=== PATIENT | female | born 2000 | race Caucasian/White ===

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

== ENCOUNTER 2022-05-14 09:09 | Emergency (ER) | payer SELFPAY ==
--- OUTSIDE RECORDS SUMMARY | 2022-05-14 09:16 | XMS REPORT | Continuity of Care Document ---
:2000 Author Organization [facility] t Address [address] [place] [address] Care Team Providers Name Role Phone PCP, PATIENT DOES NOT HAVE A Primary Care Physician Unavaila Roya Bearden Attending Clinician Unavailable Roya Ramirez Attending Clinician Doctor Unassigned, [place] Attending Clinician Unavailable Pgy3 Attending Clinician Unavailable Marily Reynolds MD Attending Clinician Mannie Jesus DO Attending Clinician Shiraz Dubois APN Attending Clinician NEHA HANEY Attending Clinician Unavailable Payers Payer Name Policy Type Policy Number Effective Date Expiration Date [employer]jo [employer] [id number] 2021 HEALTHCARE 00:00:00 Problems Condition Condition Condition Status Onset Resolution Last Treating Co mments Source Name Details Category Date Date Treatment Clinician Date Vaginal Vaginal Disease Active 2020-10 Overview: Univ ers laceration laceration 10-27 Formattin ity of , initial , initial 00:00: [place] of [place] encounter 00 note Medi eladio might be Branch different from the original. Added automatic ally from request for surgery [id number] Morbid Morbid Disease Active 2020-10 Univers obesity obesity 10-27 [place]y of [place] mass index 00 [place] dical of of Branch 40.0-49.9 40.0-49.9 SEIZURE SEIZURE Diagnosis Active 2019-12-02 Memoria Active 10-21 10:28:00 l 10/21/2019 00:00: Claudio albright [address] History of Past Illness Condition Condition Condition Status Onset Resolution Last Treating Co mments Source Name Details Category Date Date Treatment Clinician Date Unspecifie Unspecifi Problem 2019-10-23 2019-10-23 Memoria d ed 10-21 23:30:17 23:30:17 l convulsion convulsion 18:00: He ann s s 00 10/21/2019 0 [facility] Allergies, Adverse Reactions, Alerts Allergy Allergy Status Severity Reaction(s) Onset Inactive Treating Comm ents Source Name Type Date Date Clinician Iodine Propensi Active Other - See sneezing U nivers ty to comments 07-04 ity of adverse 00:00: [place] reaction 00 Medical s Branch IODINE DRUG Active Low ITCHING Univers INGREDI 9- ity of 00:00: [place] 00 Medical Branch Social History Social Habit Start Date Stop Date Quantity Comments Source Exposure to Not sure [facility] SARS-CoV-2 (event) Medica l Branch Sex Assigned At [birth year] [facility] 00:00:00 00:00:00 Medical Branch Smoking Status Start Date Stop Date Source Unknown if ever smoked [facility] Medical [place] Social History [facility] Medications Ordered Filled Start Stop Current Ordering Indication Dosage Frequency Signature Comments Components Source Medication Medication Date Date Medication? Clinician (SIG) Name Name ofloxacin Yes [id number] 5[drp] Place 5 Univers 0.3 % otic 01-16 Drops in ity of drops 00:00: left ear 2 [place] 00 (two) Medical times Branch daily. ibuprofen 2020-10 Yes [id number] 600mg Take 1 Univers 600 mg 1-21 100 tablet by ity of tablet 00:00: mouth [place] 00 every 6 Medical (six) Branch hours. ibuprofen 2020-10 Yes [id number] 600mg Take 1 Univers 600 mg 1-21 100 tablet by ity of tablet 00:00: mouth [place] 00 every 6 Medical (six) Branch hours. ibuprofen 2020-10 Yes [id number] 600mg Take 1 Univers 600 mg 1-21 100 tablet by ity of tablet 00:00: mouth [place] 00 every 6 Medical (six) Branch hours. Saline 2020-0 No Notes: Memoria Flush 0.9% 1-15 (Same as: l 21:17: BD Serafin 00 Posiflush) Sodium 2020-0 No 1,000 mL, Memori a Chloride 1-15 1,000 l 0.9% 21:17: ml/hr, Serafin (Bolus) IV 00 Infuse Over: 1 hr, Route: IV, 1,000, Drug form: INJ, ONCE, Priority: STAT, Dosing Weight 90.909 kg, Start date: 10/21/19 15:17:00 C[employer]TING [employer], Stop date: 10/21/19 15:17:00 C[employer]TING [employer]ACH[employer], 0 Saline 2019-0 No Notes: Memoria Flush 0.9% 1-15 (Same as: l 21:17: BD [place] 00 Posiflush) Sodium 2020-0 No 1,000 mL, Memori a Chloride 1-15 1,000 l 0.9% 21:17: ml/hr, Serafin (Bolus) IV 00 Infuse Over: 1 hr, Route: IV, 1,000, Drug form: INJ, ONCE, Priority: STAT, Dosing Weight 90.909 kg, Start date: 10/21/19 15:17:00 C[employer]TING [employer], Stop date: 10/21/19 15:17:00 C[employer]TING MACH[employer], 0 Immunizations Ordered Filled Immunization Date Status Comments [facility] Immunization Name Name Td 2021-08-27 Completed University of 00:00:00 [facility] Td 2021-08-27 Completed University of 00:00:00 [facility] Td 2021-08-27 Completed University of 00:00:00 [facility] HEPATITIS A 2009-11-15 Completed University of 00:00:00 [facility] HEPATITIS A 2009-11-15 Completed University of 00:00:00 [facility] HEPATITIS A 2007-07-21 Completed University of 00:00:00 [facility] Varicella 2007-07-21 Completed University of (varivax)(chicken 00:00:00 [facility] edical pox) Branch HEPATITIS A 2007-07-21 Completed University of 00:00:00 [facility] Varicella 2007-07-21 Completed University of (varivax)(chicken 00:00:00 [place] M edical pox) Branch DTAP 2005-08-21 Completed University of 00:00:00 [facility] MMR 2005-08-21 Completed University of 00:00:00 [facility] Polio (IPV/OPV) 2005-08-21 Completed Universit y of 00:00:00 [facility] DTAP 2005-08-21 Completed University of 00:00:00 [facility] MMR 2005-08-21 Completed University of 00:00:00 [facility] Polio (IPV/OPV) 2005-08-21 Completed Universit y of 00:00:00 [facility] Vital Signs Vital Name Observation Time Observation Value Comments Source Systolic blood 2022-01-16 16:52:00 134 mm[Hg] Univer sity of pressure [facility] Diastolic blood 2022-01-16 16:52:00 85 mm[Hg] Unive rsity of pressure [facility] Heart rate 2022-01-16 16:52:00 87 /min [facility] Body temperature 2022-01-16 16:52:00 37.06 Juany [facility] Respiratory rate 2022-01-16 16:52:00 18 /min [facility] Body height 2022-01-16 16:52:00 165.1 cm [facility] Body weight 2022-01-16 16:52:00 108.863 kg [facility] BMI 2022-01-16 16:52:00 39.94 kg/m2 [facility] Oxygen saturation in 2022-01-16 16:52:00 97 /min [facility] Arterial blood by [facility] Pulse oximetry Branch Heart rate 2021-09-21 19:46:00 95 /min [facility] Body temperature 2021-09-21 19:46:00 37.11 Juany [facility] Respiratory rate 2021-09-21 19:46:00 21 /min [facility] Body height 2021-09-21 19:46:00 162.6 cm [facility] Body weight 2021-09-21 19:46:00 109.362 kg [facility] BMI 2021-09-21 19:46:00 41.38 kg/m2 [facility] Systolic blood 2021-09-21 19:46:00 132 mm[Hg] Univer sity [facility] Diastolic blood 2021-09-21 19:46:00 87 mm[Hg] [facility] Rate 2019-10-21 23:51:00 Memori al [place] Systolic (mm Hg) 2019-10-21 23:51:00 Dada rial Serafin Diastolic (mm Hg) 2019-10-21 23:51:00 Mem orial [place] Temperature Oral (F) 2019-10-21 23:51:00 98.2 F [facility] [place] Respitory Rate 2019-10-21 22:11:00 Memori al Serafin Systolic (mm Hg) 2019-10-21 22:11:00 Dada rial [place] Diastolic (mm Hg) 2019-10-21 22:11:00 Mem orial Serafin Respitory Rate 2019-10-21 22:09:00 Memori al Serafin Systolic (mm Hg) 2019-10-21 22:09:00 Dada rial Serafin Diastolic (mm Hg) 2019-10-21 22:09:00 Mem orial Serafin Heart Rate 2019-10-21 21:01:00 [facility] [place] Temperature Oral (F) 2019-10-21 21:01:00 98.7 F [facility] Serafin Height 2019-10-21 21:01:00 162.56 cm [facility] Serafin BMI Calculated 2019-10-21 21:01:00 Memori al [place] Weight 2019-10-21 21:01:00 [facility] Serafin Procedures Procedure Date / Time Performed Performing Clinician [facility] NOTICE OF PRIVACY 2022-01-16 16:36:22 Doctor Unassigned, No Univ [facility] Name [facility] Branch CONSENT/REFUSAL FOR 2022-01-16 16:36:08 [facility] Branch TREATMENT Encounters Start End Encounter Admission Attending Care Care Encounter Source Date/Time Date/Time Type Type Clinicians Facility Department ID 2022-01-16 2022-01-16 Emergency X Roya TODD [facility] ERT [id number] Univers 11:53:00 14:24:00 ity of [facility] 2022-01-16 2022-01-16 Emergency Roya Todd [facility] [id number] Univers 11:53:00 14:24:00 Kristel TINOCO [id number] i ty of [place] 4[place]2.[place].2.[place] [id number] [facility] 084 Branch 2022-01-16 2022-01-16 Orders Doctor LEANNA [id number] Univers 00:00:00 00:00:00 Only Unassigned, ALEX 350.1.13.10 ity of [place] [facility] 4.2.7.2.686 Afshin as [id number] [facility] 009 Branch 2021-09-21 2021-09-21 Office Pgy3 UNIVERSIT [id number] Univers 14:15:00 14:15:00 Visit ReynoldsMarily [facility] 350.1.13. 10 ity of [facility] 4.2.7.2.686 [place] [id number] [facility] 113 Branch 2020-07-31 2020-07-31 Emergency Singer [facility] [id number] 01:53:00 04:10:00 Mannie Tinoco [id number] [place] 4.2.7.2.686 [place] [id number] 2020-03-17 2020-03-17 Emergency [facility] [id number] 08:47:37 10:04:00 Alejandrina [id number] [place] 4.2.7.2.686 [place] [id number] 2019-11-29 2019-11-29 Emergency Sherly [facility] [id number] 12:21:58 14:07:00 Shiraz [place] [id number] [place] 4.2.7.2.686 [place] [id number] 2019-10-21 2019-10-21 Emergency nullFlavo [facility] [id number] Memoria 21:00:43 23:54:00 r Serafin 00 l [facility] 2019-10-21 2019-10-21 Emergency E MEDINA, MHCY MHCY 7500 MHCY 15:00:00 17:54:00 NEHA Results Test Description Test Time Test Comments Results Result Sourc e Comments MOLECULAR 2019-10-21 Urine [facility] DIAGNOSTIC 22:52:00 *NA*(10/21/19 Serafin 4:52 PM) MOLECULAR 2019-10-21 Negative [facility] DIAGNOSTIC 22:52:00 *NA*(10/21/19 Serafin 4:52 PM) MOLECULAR 2019-10-21 Negative [facility] DIAGNOSTIC 22:52:00 *NA*(10/21/19 Serafin 4:52 PM) MOLECULAR 2019-10-21 Urine [facility] DIAGNOSTIC 22:52:00 *NA*(10/21/19 Serafin 4:52 PM) MOLECULAR 2019-10-21 Negative [facility] DIAGNOSTIC 22:52:00 *NA*(10/21/19 Serafin 4:52 PM) MOLECULAR 2019-10-21 Negative [facility] DIAGNOSTIC 22:52:00 *NA*(10/21/19 [place] 4:52 PM) DRUG SCREEN 2019-10-21 Negative Memorial 22:04:00 *NA*(10/21/19 Serafin 4:04 PM) DRUG SCREEN 2019-10-21 Negative Memorial 22:04:00 *NA*(10/21/19 [place] 4:04 PM) DRUG SCREEN 2019-10-21 Negative Memorial 22:04:00 *NA*(10/21/19 Serafin 4:04 PM) DRUG SCREEN 2019-10-21 Negative Memorial 22:04:00 *NA*(10/21/19 [place] 4:04 PM) DRUG SCREEN 2019-10-21 See Note Memorial 22:04:00 (10/21/19 4:04 [place] PM) DRUG SCREEN 2019-10-21 Negative Memorial 22:04:00 *NA*(10/21/19 Serafin 4:04 PM) URINE AND STOOL 2019-10-21 Yellow [facility] 22:04:00 *NA*(10/21/19 Serafin 4:04 PM) DRUG SCREEN 2019-10-21 See Note Memorial 22:04:00 (10/21/19 4:04 Serafin PM) URINE AND STOOL 2019-10-21 Yellow [facility] 22:04:00 *NA*(10/21/19 [place] 4:04 PM) URINE AND STOOL 2019-10-21 Clear (10/21/19 Memor ial 22:04:00 4:04 PM) [place] URINE AND STOOL 2019-10-21 Clear (10/21/19 Memor ial 22:04:00 4:04 PM) Serafin URINE AND STOOL 2019-10-21 22:04:00 Test Item Value Reference Range Interpretation Comme nts UA Spec Grav (test code = UA Spec Grav) 1.020 1 [facility] [id number] 22:04:00 Test Item Value Reference Range Interpretation Comments UA pH (test code = UA pH) 5.5 1 5.0-8.0 [facility] [id number] 22:04:00Negative (10/21/19 4:04 PM) [facility] [id number] 22:04:00Negative (10/21/19 4:04 PM) [facility] [id number] 22:04:00Negative *NA*(10/21/19 4:04 PM) [facility] [id number] 22:04:00Negative *NA*(10/21/19 4:04 PM) [facility] [id number] 22:04:00Negative (10/21/19 4:04 PM) [facility] [id number] 22:04:000.2[facility] [id number] 22:04:00 Test Item Value Reference Range Interpretation Comments UA Spec Grav (test code = UA Spec 1.020 1 Grav) [facility] [id number] 22:04:00Negative (10/21/19 4:04 PM) [facility] [id number] 22:04:00Negative (10/21/19 4:04 PM) [facility] [id number] 22:04:00Negative *NA*(10/21/19 4:04 PM) [facility] [id number] 22:04:00 Test Item Value Reference Range Interpretation Comments UA pH (test code = UA pH) 5.5 1 5.0-8.0 [facility] [id number] 22:04:00Negative (10/21/19 4:04 PM) [facility] [id number] 22:04:00Negative *NA*(10/21/19 4:04 PM) [facility] [id number] 22:04:00Negative (10/21/19 4:04 PM) [facility] [id number] 22:04:00Negative *NA*(10/21/19 4:04 PM) [facility] [id number] 22:04:00Negative *NA*(10/21/19 4:04 PM) [facility] [id number] 22:04:00Negative (10/21/19 4:04 PM) [facility] [id number] 22:04:000.2[facility] [id number] 22:04:00Negative (10/21/19 4:04 PM)[facility] [id number] 22:04:00Negative (10/21/19 4:04 PM)[facility]annDRUG SCREEN 2019-10-21 22:04:00Positive *ABN*(10/21/19 4:04 PM)[facility] SCREEN 2019-10-21 22:04:00Negative *NA*(10/21/19 4:04 PM)[facility] SCREEN 2019-10-21 22:04:00Negative *NA*(10/21/19 4:04 PM)[facility] SCREEN 2019-10-21 22:04:00Negative *NA*(10/21/19 4:04 PM)[facility] SCREEN 2019-10-21 22:04:00Negative *NA*(10/21/19 4:04 PM)[facility]annDR[facility] SCREEN 2019-10-21 22:04:00Positive *ABN*(10/21/19 4:04 PM)[facility]annDR[facility] SCREEN 2019-10-21 22:04:00Negative *NA*(10/21/19 4:04 PM)[facility] HermannHEMATOLOGY 2019-10-21 21:29:0036.8[facility] BixvishHEDWMBONBR6512-06-13 21:29:0077.7[facility] ScqqddiIJZZVHREZN6268-55-71 21:29:00 Test Item Value Reference Range Interpretation Comments MCH (test code = MCH) 25.8 pg 27.0-31.0 Memorial ZjumfvtDZRVPDKQRR1262-22-66 21:29:0033.1[facility] HermannHEMATOLOGY 2019-10-21 21:29:0016.6[facility] PjmwrgkGGZESMMZLR5522-79-76 21:29:49995Jexondxd UusxplzZPZPXQJWPE4446-17-79 21:29:0010.8[facility]orial FbdsifrDJMWIBZSLY8641-27-34 21:29:0063.9[facility] DvabpiaOSAXWTVWGP6968-55-35 21:29:0023.2[facility] [place] HCNVBVDZST4214-88-74 21:29:008.0[facility] AziwqjaSDDDCEUWCX5440-13-21 21:29:004.5 Memorial KjrxdgoAJTCITPSPA6134-47-11 21:29:000.4[facility] HermannHEMATOLOGY 2019-10-21 21:29:004.3[facility] UcgaigfMMUHUHMOGA4278-90-25 21:29:001.6[facility] EvksslqPZZSUSZHLC1497-70-37 21:29:000.5[facility]orial QsalxakGQXEWSVVGR3561-86-39 21:29:000.3[facility] AnlkxzpYOPZSGIWWN6698-39-44 21:29:001+ *ABN*(10/21/19 3:29 PM)[facility] ExqkrtrJJMVSJFJCQ2165-80-96 21:29:00<3[facility] HermannTOXICOLOGY 2019-10-21 21:29:00<0.003[facility] HermannCARDIAC LUQQTIY8272-13-04 21:29:0072 [facility] HermannCARDIAC ZAPXVDC6564-99-64 21:29:00<0.02[facility] HermannCHEM MJGUO1817-53-15 21:29:0085Mem[facility] HermannCHEM WDBZA1980-66-28 21:29:0013 [facility] HermannCHEM CRGPH5720-48-29 21:29:000.80[facility] HermannCHEM PANEL 2019-10-21 21:29:28681Whcwwiuv HermannCHEM GBGAJ2287-03-93 21:29:003.8[facility] HermannCHEM YAIIG8980-11-96 21:29:29901Grnhqnsn HermannCHEM UOHBD4529-64-54 21:29:0027[facility] HermannCHEM SGKRW4581-60-18 21:29:008.5[facility] HermannCHEM RXUAA6084-94-51 21:29:006.6[facility] HermannCHEM DFIGW0782-06-48 21:29:003.5 [facility] HermannCHEM QUAGQ0522-72-08 21:29:0020[facility] HermannCHEM PANEL 2019-10-21 21:29:0017Mem[facility] HermannCHEM RTGFP4619-34-78 21:29:0073Mem[facility] HermannCHEM LUKTS3457-10-23 21:29:000.3[facility] HermannCHEM SZTMS7138-52-01 21:29:004.8[facility] HermannCHEM WABBP0257-04-29 21:29:00 Test Item Value Reference Range Interpretation Comments B/C Ratio (test code = B/C Ratio) 16 1 6-25 [facility]annCHEM [id number] 21:29:003.1[facility] HermannCHEM PANEL 2019-10-21 21:29:00 Test Item Value Reference Range Interpretation Comments A/G Ratio (test code = A/G Ratio) 1.1 1 0.7-1.6 [facility]annCHEM [id number] 21:29:76153Udbrvgbo HermannENDOCRINOLOGY 2019-10-21 21:29:00Negative *NA*(10/21/19 3:29 PM)[facility] HermannHEMATOLOGY 2019-10-21 21:29:006.8[facility]orial ZrhwkpcGKFSRVRBLU8443-57-18 21:29:004.73[facility] OehzxxmDMYCXMDBAN2529-73-98 21:29:0012.2[facility]orial CytecfsDCPCCZQAJP2039-12-44 21:29:0036.8[facility]orial YsoqlsgWWBUVUEHJZ0404-36-71 21:29:0077.7[facility] [place] WRMSHYORNT2058-61-13 21:29:00 Test Item Value Reference Range Interpretation Comments MCH (test code = MCH) 25.8 pg 27.0-31.0 Memorial TyuzcrwSBHFXHCLPH6947-72-99 21:29:0033.1[facility] HermannHEMATOLOGY 2019-10-21 21:29:0016.6[facility]orial FuqwrxhZREUBCOXBI7860-44-17 21:29:19864Hikcxctf MmbgtdpCZOWZPZTOI0412-50-30 21:29:0010.8[facility]orial AwywgysPDLEBDIZWI8882-27-83 21:29:0063.9[facility]orial BzdvqtqZLEJWKDYXD6550-85-98 21:29:0023.2[facility] [place] NYVGLCJAFR1849-28-05 21:29:008.0[facility]orial ZxiueqqFYWEZZHHNK9444-96-32 21:29:004.5 Memorial NgszeiqQTRYLFXKFM1996-17-82 21:29:000.4[facility] HermannHEMATOLOGY 2019-10-21 21:29:004.3[facility]orial YrshrimBFTXPKGVGM2628-02-84 21:29:001.6[facility]orial BxuqurqKCNXBITCRR4200-85-58 21:29:000.5[facility]orial WgjoobfSBXTEXXHGQ6571-87-89 21:29:000.3[facility]orial TnvclocGCJFHEQQBS7799-90-77 21:29:001+ *ABN*(10/21/19 3:29 PM)[facility]orial JzmdjxdLXFUQSSECY6748-89-16 21:29:00<3[facility] HermannTOXICOLOGY 2019-10-21 21:29:00<0.003[facility] HermannCARDIAC ZTURAKB5342-87-38 21:29:0072 [facility] HermannCARDIAC RXWUVHA2134-54-38 21:29:00<0.02[facility] HermannCHEM MGDXO9943-28-72 21:29:0085Mem[facility] HermannCHEM PRSOY9429-85-17 21:29:0013 [facility] HermannCHEM JSFIM7879-71-98 21:29:000.80[facility] HermannCHEM PANEL 2019-10-21 21:29:08596Jfppfnet HermannCHEM FJYBM7160-13-26 21:29:003.8[facility] HermannCHEM KIINY4520-62-78 21:29:18913Hwfukqhm HermannCHEM JPPCT7140-38-25 21:29:0027[facility] HermannCHEM YXFWZ5520-37-13 21:29:008.5[facility] HermannCHEM DWQBF0475-18-28 21:29:006.6[facility] HermannCHEM QWTTQ8719-21-18 21:29:003.5 [facility] HermannCHEM XIZLH3943-24-05 21:29:0020[facility] HermannCHEM PANEL 2019-10-21 21:29:0017Mem[facility] HermannCHEM WZNRD9454-45-04 21:29:0073[facility] HermannCHEM LBWQO8060-39-75 21:29:000.3[facility] HermannCHEM HHYHQ9454-57-41 21:29:004.8[facility] HermannCHEM BCIQS8185-75-79 21:29:00 Test Item Value Reference Range Interpretation Comments B/C Ratio (test code = B/C Ratio) 16 1 6-25 [facility] HermannCHEM KYKPK2338-26-01 21:29:003.1[facility] HermannCHEM PANEL 2019-10-21 21:29:00 Test Item Value Reference Range Interpretation Comments A/G Ratio (test code = A/G Ratio) 1.1 1 0.7-1.6 [facility] HermannCHEM [id number] 21:29:53635Umvneahe HermannENDOCRINOLOGY 2019-10-21 21:29:00Negative *NA*(10/21/19 3:29 PM)[facility] HermannHEMATOLOGY 2019-10-21 21:29:006.8[facility] VsrktqrPCIRBRJNRF2896-71-05 21:29:004.73[facility] RijgjjcPFCIOWCNWE5385-26-70 21:29:0012.2[facility] [place]
[2022-05-14] MEDS ORDERED: ALBUTEROL 2.5 MG/3 ML NEB SOL ONE (10:20)
[2022-05-14] MEDS ORDERED: IPRATROPIUM BROM 0.5MG/2.5ML ONE (10:20)
[2022-05-14 10:39] LABS: Hematocrit 38.1 % (36.0-45.0); Lymphocytes % 25.6 % (15.3-44.8); MCV 77.7 fL (80-100)
--- NOTE | 2022-05-14 11:07 | RAD REPORT ---
EXAM DESCRIPTION: RAD - Chest Single View - 05/14/2022 10:41 am CLINICAL HISTORY: CHEST PAIN COMPARISON: Two view chest 10/02/2017 TECHNIQUE: AP portable chest image was obtained 05/14/2022 10:41 am . FINDINGS: Lungs are clear. Heart and vasculature are normal. No measurable pleural effusion and no p neumothorax. No acute bony abnormality seen. No acute aortic findings suspected. IMPRESSION: No acute cardiopulmonary process. No significant change from comparison study.
[2022-05-14 11:08] LABS: Albumin 3.5 g/dL (3.4-5.0); Bilirubin Direct 0.1 mg/dL (0-0.2); Bilirubin Total 0.3 mg/dL (0.2-1.0); Magnesium 2.1 mg/dL (1.8-2.4); Potassium 3.5 mmol/L (3.5-5.1); Protein, Total 7.1 g/dL (6.4-8.2)
[2022-05-14 11:18] LABS: Urine Blood 2+ (Negative); Urine Glucose Negative (Negative); Urine Protein Negative (Negative); Urine Specific Gravity >=1.030 (1.005-1.030)
[2022-05-14] MEDS ORDERED: METHYLPREDNISOLONE 125 MG INJ ONE (11:44)
[2022-05-14 11:46] LABS: Barbiturates NEGATIVE (NEGATIVE); Benzodiazepines NEGATIVE (NEGATIVE); Cocaine NEGATIVE (NEGATIVE); METHAMPHETAM NEGATIVE (NEGATIVE); Methadone NEGATIVE (NEGATIVE); Opiates NEGATIVE (NEGATIVE); Phencyclidine NEGATIVE (NEGATIVE); THC Cannibis NEGATIVE (NEGATIVE)
--- NOTE | 2022-05-14 13:07 | ER ---
Nurse's Notes [facility] Name: Momo Parnell Age: 22 yrs Sex: Female : 2000 Arrival Date: 05/14/2022 Time: 09:13 Bed 16 Private MD: Diagnosis: Shortness of breath;Chest pain, unspecified Presentation: 05/14 09:28 Chief complaint: Patient states: Pt presents to ED with complaints of "difficulty jh5 breathing and pressure that feels like someone is standing on her chest that started around 6 am this morning" Pt is AAOX4, NAD at this time. Pt states she has hx of seizures, unmedicated (last seizure was last year April 09). Coronavirus screen: Vaccine status: Patient reports being unvaccinated. Client indicates they have traveled out of the [place] in the last 14 days. At this time, the client does not indicate any symptoms associated with coronavirus-19. Ebola Screen: Patient negative for fever greater than or equal to 101.5 degrees Fahrenheit, and additional compatible Ebola Virus Disease symptoms Patient denies exposure to infectious person. Patient denies travel to an Ebola-affected area in the 21 days before illness onset. Initial Sepsis Screen: Does the patient meet any 2 criteria? No. Patient's initial sepsis screen is negative. Does the patient have a suspected source of infection? No. Patient's initial sepsis screen is negative. Risk Assessment: Do you want to hurt yourself or someone else? Patient reports no desire to harm self or others. Onset of symptoms was May 14, 2022 at 06:00. 09:28 Method Of Arrival: Ambulatory [facility] er 09:28 Acuity: JULI 3 5 Triage Assessment: 09:34 General: Appears in no apparent distress. Behavior is calm, cooperative. Pain: Denies 5 pain. Cardiovascular: No deficits noted. Reports chest pain, shortness of breath. 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 - Social history:: Smoking status: Reported history of juuling and/or vaping. Screenin:39 Abuse screen: Denies threats or abuse. Denies injuries from another. Nutritional jh5 screening: No deficits noted. Tuberculosis screening: No symptoms or risk factors identified. Fall Risk None identified. Assessment: 09:37 Reassessment: Pt takes periodic deep breathes when talking about being "short of jh5 breath.. Pt states she has had seizures since she was 19, never been medicated. Has had EEG done and provider told her she didn't need medication. Pt states when she has a seizure her right arm and leg shake. Pt states she has not had seizure since April 09, 2021. Pain: Denies pain. 10:07 General: Appears in no apparent distress. Behavior is calm, cooperative. Pain: Denies jh6 pain. Neuro: No deficits noted. Respiratory: No deficits noted. Airway is patent Trachea midline Respiratory effort is even, unlabored. 10:08 Pain: jh6 Vital Signs: 09:28 BP 123 / 70; Pulse 79; Resp 18; Temp 98.8; Pulse Ox 100% ; Weight 117.93 kg; Height 5 jh5 ft. 4 in. (162.56 cm); Pain 0/10; 09:28 Body Mass Index 44.63 (117.93 kg, 162.56 cm) jh5 ED Course: 09:13 Patient arrived in ED. mr 09:28 Andriy Hood PA is PHCP. cp 09:28 Deondre Mars MD is Attending Physician. cp 09:34 Triage completed. jh5 09:34 Arm band placed on right wrist. jh5 09:39 Patient has correct armband on for positive identification. Client placed on continuous jh5 cardiac and pulse oximetry monitoring. NIBP monitoring applied. 09:39 No provider procedures requiring assistance completed. jh5 09:40 EKG done, by chemical research technician. jh5 09:42 Anu Hurtado, RN is Primary Nurse. jh6 09:42 EKG done, by ED staff, reviewed by Deondre Mars MD. dh3 10:08 Inserted saline lock: 20 gauge in left antecubital area, using aseptic technique. Blood jh6 collected. 10:08 Patient maintains SpO2 saturation greater than 95% on room air. jh6 10:43 XRAY Chest (1 view) In Process Unspecified. EDMS 11:20 UDS Sent. kc6 13:23 IV discontinued, intact, bleeding controlled, No redness/swelling at site. Pressure jh6 dressing applied. Administered Medications: 10:18 Drug: Albuterol 2.5 mg Route: Inhalation; 6 11:05 Follow up: Response: No adverse reaction 6 10:18 Drug: AtroVENT (ipratropium) Aerosol 0.5 mg Route: Inhalation; 6 11:05 Follow up: Response: No adverse reaction [facility] 11:43 Drug: SOLU-Medrol (methylPrednisoLONE) 125 mg Route: IVP; Site: left antecubital; [facility] 13:24 Follow up: Response: No adverse reaction 6 Medication: 10:09 VIS not applicable for this client. 6 Outcome: 13:06 Discharge ordered by . latoya 13:23 Discharged to home [facility] 13:23 Condition: good 13:23 Discharge instructions given to patient, Instructed on discharge instructions, Demonstrated understanding of instructions, follow-up care, medications, Prescriptions given X 2. 13:32 Patient left the ED. 6 Signatures: Dispatcher [employer] EDMO MasonWinsome Corey, MICHAELA PA Sandra Carrillo 3 Donna Rai RN RN jh5 Anu Hurtado RN RN jh6 Vaishnavi Ramos 6 Corrections: (The following items were deleted from the chart) 09:35 09:34 Allergies: NKDA; [place] [id number]
--- NOTE | 2022-05-14 13:07 | EDPHYS ---
Physician Documentation [facility] Name: Momo Parnell Age: 22 yrs Sex: Female : 2000 Arrival Date: 05/14/2022 Time: 09:13 Bed 16 Private MD: ED Physician Deondre Mars HPI: 05/14 09:30 This 22 yrs old Female presents to ER via Ambulatory with complaints of Chest Pressure, cp Breathing Difficulty. 09:30 The patient or guardian reports chest pain that is located primarily in the anterior cp chest wall, bilaterally. The pain does not radiate. The chest pain is described as a pressure. 09:30 Associated signs and symptoms: Pertinent positives: shortness of breath, Pertinent cp negatives: abdominal pain, cough, diaphoresis, dizziness, lower extremity pain, lower extremity swelling, lightheadedness, palpitations, syncope, vomiting. Duration: The patient or guardian reports a single episode, that is still ongoing, and unchanged. 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 - Social history:: Smoking status: Reported history of juuling and/or vaping. ROS: 09:33 Constitutional: Negative for body aches, chills, fever, poor PO intake. cp 09:33 Eyes: Negative for injury, pain, redness, and discharge. cp 09:33 ENT: Negative for drainage from ear(s), ear pain, sore throat, difficulty swallowing, difficulty handling secretions. 09:33 Cardiovascular: Negative for chest pain, edema, palpitations. 09:33 Respiratory: Positive for shortness of breath, at rest. Negative for cough, wheezing. 09:33 Abdomen/GI: Negative for abdominal pain, vomiting, diarrhea, constipation. 09:33 Back: Negative for pain at rest, pain with movement, radiated pain. 09:33 : Negative for urinary symptoms. 09:33 Neuro: Negative for altered mental status, dizziness, headache, syncope, weakness. 09:33 All other systems are negative. Exam: 09:35 Constitutional: The patient appears in no acute distress, alert, awake, cp non-diaphoretic, non-toxic, well developed, well nourished, obese. 09:35 Head/Face: Normocephalic, atraumatic. cp 09:35 Eyes: Periorbital structures: appear normal, Conjunctiva: normal, no exudate, no injection, Sclera: no appreciated abnormality, Lids and lashes: appear normal, bilaterally. 09:35 ENT: External ear(s): are unremarkable, Nose: is normal, Mouth: Lips: moist, Oral mucosa: pink and intact, moist, Posterior pharynx: Airway: no evidence of obstruction, patent, swelling, is not appreciated, erythema, is not appreciated, exudate, is not appreciated. 09:35 Neck: ROM/movement: is normal, is supple, without pain, no range of motions limitations, no nuchal rigidity. 09:35 Chest/axilla: Inspection: normal. cp 09:35 Cardiovascular: Rate: normal, Rhythm: regular, Heart sounds: murmur, not appreciated, cp Edema: is not appreciated. 09:35 Respiratory: the patient does not display signs of respiratory distress, Respirations: labored breathing, is not present, intercostal retractions, are absent, shallow respirations, that is mild, Breath sounds: are clear throughout, no decreased breath sounds, no stridor, no wheezing. 09:35 Abdomen/GI: Inspection: abdomen appears normal, Palpation: abdomen is soft and non-tender, in all quadrants. 09:35 Back: pain, is absent, ROM is normal. 09:35 Neuro: Orientation: to person, place \\T\\ time. Mentation: is normal, Cerebellar function: is grossly normal, Motor: moves all fours, strength is normal, Sensation: is normal. 09:42 ECG was reviewed by the Attending Physician. cp Vital Signs: 09:28 BP 123 / 70; Pulse 79; Resp 18; Temp 98.8; Pulse Ox 100% ; Weight 117.93 kg; Height 5 jh5 ft. 4 in. (162.56 cm); Pain 0/10; 09:28 Body Mass Index 44.63 (117.93 kg, 162.56 cm) jh5 MDM: 09:42 Patient medically screened. cp 10:00 Differential diagnosis: abnormal EKG, acute myocardial infarction, acute pericarditis, cp chest wall pain, cholecystitis, Cholelithiasis costochondritis, pericarditis, pleurisy, pneumonia, pneumothorax, pulmonary embolus. 13:05 Data reviewed: vital signs, nurses notes, lab test result(s), EKG, radiologic studies, cp plain films. 13:05 Data interpreted: otolaryngology rep: rhythm is normal sinus rhythm, Pulse oximetry: on cp room air is 100 %. Interpretation: normal. Test interpretation: by ED physician or midlevel provider: ECG, plain radiologic studies. Counseling: I had a detailed discussion with the patient and/or guardian regarding: the historical points, exam findings, and any diagnostic results supporting the discharge/admit diagnosis, lab results, radiology results, to return to the emergency department if symptoms worsen or persist or if there are any questions or concerns that arise at home. Special discussion: Based on the patient's history, exam, and Dx evaluation, there is no indication for emergent intervention or inpatient Tx. It is understood by the patient/guardian that if the Sx's persist or worsen they need to return immediately for re-evaluation. 05/14 09:51 Order name: Basic Metabolic Panel; Complete Time: 11:15 05/14 11:25 Interpretation: Normal except: CL 108; CA 8.4. 05/14 09:51 Order name: CBC with Diff; Complete Time: 10:48 05/14 10:48 Interpretation: Normal except: RBC 4.90; MCV 77.7; MCH 26.1; PLT 127. 05/14 09:51 Order name: LFT's; Complete Time: 11:15 05/14 11:16 Interpretation: Normal except: GLOB 3.6; A/G 1.0. 05/14 09:51 Order name: Magnesium; Complete Time: 11:15 05/14 09:51 Order name: NT PRO-BNP; Complete Time: 11:15 05/14 09:51 Order name: Troponin HS; Complete Time: 11:15 05/14 09:51 Order name: XRAY Chest (1 view); Complete Time: 11:15 05/14 11:16 Interpretation: Report review. 05/14 10:08 Order name: UDS; Complete Time: 12:19 05/14 10:48 Order name: COVID-19 SARS RT PCR (Document "Date of Onset" if Symptomatic); Complete cp Time: 13:03 05/14 13:03 Interpretation: Reviewed. 05/14 11:18 Order name: Urine Dipstick-Ancillary; Complete Time: 11:25 EDMS 05/14 09:28 Order name: Urine Dipstick-Ancillary (obtain specimen); Complete Time: 11:16 cp 05/14 09:28 Order name: Urine Test (obtain specimen); Complete Time: 11:16 cp 05/14 09:28 Order name: EKG; Complete Time: 09:29 cp 05/14 09:28 Order name: EKG - Nurse/Tech; Complete Time: 09:42 05/14 09:51 Order name: Cardiac monitoring; Complete Time: 10:07 05/14 09:51 Order name: IV Saline Lock; Complete Time: 10:07 05/14 09:51 Order name: Labs collected and sent; Complete Time: 10:07 05/14 09:51 Order name: O2 Per Protocol; Complete Time: 10:07 05/14 09:51 Order name: O2 Sat Monitoring; Complete Time: 10:07 EC:42 Rate is 77 beats/min. Rhythm is regular. IL interval is normal. QRS interval is normal. cp QT interval is normal. T waves are Inverted in leads III, aVR. Interpreted by me. Reviewed by me. Administered Medications: 10:18 Drug: Albuterol 2.5 mg Route: Inhalation; [facility] 11:05 Follow up: Response: No adverse reaction [facility] 10:18 Drug: AtroVENT (ipratropium) Aerosol 0.5 mg Route: Inhalation; [facility] 11:05 Follow up: Response: No adverse reaction [facility] 11:43 Drug: SOLU-Medrol (methylPrednisoLONE) 125 mg Route: IVP; Site: left antecubital; [facility] 13:24 Follow up: Response: No adverse reaction [facility] Disposition Summary: 05/14/22 13:06 Discharge Ordered Location: Home cp Problem: new cp Symptoms: have improved cp Condition: Stable cp Diagnosis - Shortness of breath cp - Chest pain, unspecified cp Followup: cp - With: Private Physician - When: 1 - 2 days - Reason: Recheck today's complaints Discharge Instructions: - Discharge Summary Sheet cp - Nonspecific Chest Pain, Adult cp - Shortness of Breath, Adult cp Forms: - Work release form bd - Medication Reconciliation Form cp - Thank You Letter cp - Antibiotic Education cp - Prescription Opioid Use cp Prescriptions: - albuterol sulfate 90 mcg/actuation Inhalation HFA aerosol inhaler - inhale 1 puff by INHALATION route every 4-6 hours; 1 Inhaler; Refills: 0, cp Product Selection Permitted - Medrol (Dwaine) 4 mg Oral Tablets, Dose Pack - take 1 tablet by ORAL route as directed - follow package instructions; 1 cp packet; Refills: 0, Product Selection Permitted Addendum: 05/15/2022 19:46 Co-signature as Attending Physician, Deondre Mars MD. r n Signatures: Dispatcher [employer] EDDeondre Aguilar MD MD rn Andriy Hood, MICHAELA PA cp Donna Rai RN RN jh5 Anu Hurtado RN RN jh6 Corrections: (The following items were deleted from the chart) 05/14 09:35 09:34 Allergies: NKDA; jh5 jh5 11:25 11:15 Normal except: CL 108. cp cp
[2022-05-14 13:54] VITALS: BP 123/70; TEMP 98.8; O2SAT 100
--- NOTE | 2022-05-15 10:40 | EKG ---
Test Date: 2022-05-14 Test Time: 09:36:55 [employer] Supervisor: RACHEL MEASUREMENT RESULTS: Intervals: Rate: 77 ME: 134 QRSD: 88 QT: 392 QTc: 443 Ector: P: 25 ME: 134 QRS: 56 T: 34 INTERPRETIVE STATEMENTS: Normal sinus rhythm Normal ECG Compared to ECG 10/04/2020 00:14:37 No significant changes Electronically Signed On 05-15-22 10:36:23 CDT by John Hartley
== END 2022-05-14 13:32 | disposition home or self-care (01) ==
LOC: ER 09:09
DX: R07.89 Other chest pain (principal); R06.02 Shortness of breath; Z20.822 Contact with and (suspected) exposure to COVID-19; Z91.041 Radiographic dye allergy status
CPT/HCPCS: 36415; 71045; 80048; 80076; 80307; 81003; 83735; 83880; 84484; 85025; 93005; 96374; 99285; J2930; U0003

== ENCOUNTER 2022-12-06 16:16 | Emergency (ER) | payer SELFPAY ==
--- OUTSIDE RECORDS SUMMARY | 2022-12-06 16:34 | XMS REPORT | Continuity of Care Document ---
:[address] [facility] t Address [address] [place] [address] [place] [id number] Care Team Providers Name Role Phone Pcp, Patient Does Not Have A Primary Care Physician [id number] Roya TODD Attending Clinician Unavailable Roya Ramirez Attending Clinician Doctor Unassigned, [place] Attending Clinician Unavailable Siobhan Arita LMSW Attending Clinician Unavailable Pgy3 Attending Clinician Unavailable Natalie Bess MD Attending Clinician NATALIE BESS Attending Clinician Unavailable TWILA BURRELL Attending Clinician Unavailable Twila March Attending Clinician Mary Kiser RN Attending Clinician Unavailable Eli Penn RN Attending Clinician Jazmyne Myles MD Attending Clinician GUTIERREZ POTTER Attending Clinician Unavailable Gutierrez Potter MD Attending Clinician KIRILL JAVED Attending Clinician Unavailable Kirill Garcia Attending Clinician Ann Marie Alamo Attending Clinician VERNA JOINER S Attending Clinician Unavailable La Jesus DO Attending Clinician LA JESUS Attending Clinician Unavailable MK DUBOIS Attending Clinician Unavailable Mk Dubois APN Attending Clinician Neha Haney Attending Clinician NEHA HANEY Attending Clinician Unavailable Roya TODD Admitting Clinician Unavailable JAZMYNE MYLES Admitting Clinician Unavailable Jazmyne Myles MD Admitting Clinician KIRILL JAVED Admitting Clinician Unavailable Payers Payer Name Policy Type Policy Number Effective Date Expiration Date S kalpesh [facility] [id number] 2021 HEALTHCARE 00:00:00 [facility] [id number] 2019 00:00:00 Problems Condition Condition Condition Status Onset [...] Added automatic ally from request for surgery [id number] Morbid Morbid Disease Active 2020-10 Univers obesity obesity 10-27 [place]y of [place] mass index 00 Me dical of of Branch 40.0-49.9 40.0-49.9 SEIZURE SEIZURE Diagnosis Active 2019-12-02 Memoria Active 10-21 10:28:00 l 10/21/2019 00:00: Claudio Chadwick 00 Serafin History of Past Illness Condition Condition Condition Status Onset Resolution Last Treating Co mments Source Name Details Category Date Date Treatment Clinician Date Unspecifie Unspecifi Problem 2019-10-23 2019-10-23 Memoria d ed 1-15 23:30:17 23:30:17 l convulsion convulsion 18:00: He vivian s s 00 10/21/2019 0 [facility] Allergies, Adverse Reactions, Alerts Allergy Allergy Status Severity Reaction(s) Onset Inactive Treating Comm ents Source Name Type Date Date Clinician Iodine Propensi Active Other - See sneezing U nivers ty to comments 07-04 ity of adverse 00:00: [place] reaction 00 Medical s Branch IODINE DRUG Active Low ITCHING Univers INGREDI 07-04 ity of 00:00: [place] 00 Medical Branch No Known No Known Active Memori a Medicati Medicati l on on [place] Allergie Allergie s s Social History Social Habit Start Date Stop Date Quantity Comments Source Exposure to 2021-12-17 2022-01-16 Not sure [facility] SARS-CoV-2 (event) 00:00:00 11:36:00 Medica l Branch Sex Assigned At [birth year] [facility] 00:00:00 00:00:00 Medical Branch Smoking Status Start Date Stop Date Source Tobacco smoking consumption [facility] unknown Branch Social History [facility] Medications Ordered Filled Start Stop Current Ordering Indication Dosage Frequency Signature Comments Components Source Medication Medication Date Date Medication? Clinician (SIG) Name Name ondansetron 2021-10 No 4mg 4 mg, Slow Univers (ZOFRAN 0-15 10-15 IV Push, ity of (PF)) 05:30: 04:19 ONCE, 1 [place] injection 4 00 :00 dose, On Medi eladio mg Sat Branch 07/21/22 at 0030, ANGELES cefTRIAXone 2021-10- No 1000mg 1,000 mg, Univers (ROCEPHIN) 0-15 10-15 IV ity of 1,000 mg in 03:45: 04:13 [place] NaCl 0.9% 00 :00 ONCE, 1 Medical (NS) 50 mL dose, On Branc h MINI-BAG 07/20/22 at 2245, Administer over 30 Minutes, 50 mL
Reas on for Anti-Infec tive: Documented Infection< br>Documen [place] Infection Site: Urine<br&g t;Duration of Therapy: Other (see Comments) iopamidol 2021-10- No [id number] 70mL 70 mL, U nivers (ISOVUE 0-15 10-15 Intravenou ity o f 370-500 mL) 02:04: 02:15 s, ONCE, 1 [place] injection 00 :00 dose, On Medica l 70 mL Fri Branch 07/20/22 at 2115, Routine methylpredn 2021-10 No 125mg 125 mg, U nivers isolone sod 0-15 10-15 Slow IV ity of succ 02:00: 00:54 Push, [place] (SOLU-MEDRO 00 :00 ONCE, 1 Medic al L) dose, On Branch injection Fri 125 mg 07/20/22 at 2100, ANGELES diphenhydrA 2021-10 No 25mg 25 mg, Uni vers MINE 0-15 10-15 Slow IV ity of (BENADRYL) 02:00: 00:54 Push, [place] injection 00 :00 ONCE, 1 Medical 25 mg dose, On Branch 07/20/22 at 2100, STAT NaCl 0.9% 2021-10 No 1000mL at 999 Uni vers (NS) bolus 0-15 10-15 mL/hr, ity of infusion 02:00: 04:21 1,000 mL, Afshin as 1,000 mL 00 :00 IV Medical Infusion, Branch ONCE, 1 dose, On Sat07/20/22 at 2100, STAT ondansetron 2021-10 No 4mg 4 mg, Slow Univers (ZOFRAN 0-15 10-15 IV Push, ity of (PF)) 01:15: 00:14 ONCE, 1 [place] injection 4 00 :00 dose, On Medi eladio mg Fri Branch 07/20/22 at 2015, ANGELES ondansetron 2021-10 Yes [id number] 4mg Take 1 Univers 4 mg 0-14 tablet by ity of disintegrat 00:00: mouth [place] ing tablet 00 every 8 Medica l (eight) Branch hours as needed for Nausea and Vomiting (N/V). cefdinir 2021-10- No [id number] 300mg Take 1 U nivers 300 mg 0-14 - capsule by ity of capsule 00:00: 04:59 mouth in [place] 00 :00 the Medical morning Branch and 1 capsule in the evening. Do all this for 7 days. ofloxacin Yes [id number] 5[drp] Place 5 Univers 0.3 % otic 4-12 [id number] Drops in ity of drops 00:00: left ear 2 [place] 00 (two) Medical times Branch daily. ofloxacin Yes [id number] 5[drp] Place 5 Univers 0.3 % otic 4-12 [id number] Drops in ity of drops 00:00: left ear 2 [place] 00 (two) Medical times Branch daily. ofloxacin Yes [id number] 5[drp] Place 5 Univers 0.3 % otic 4-12 [id number] Drops in ity of drops 00:00: left ear 2 [place] 00 (two) Medical times Branch daily. ibuprofen 2020-10 Yes [id number] 600mg Take 1 Univers 600 mg 1-21 100 tablet by ity of tablet 00:00: mouth [place] 00 every 6 Medical (six) Branch hours. ibuprofen 2020-10 Yes [id number] 600mg Take 1 Univers 600 mg 1-21 100 tablet by ity of tablet 00:00: mouth [place] 00 every 6 Medical (six) Branch hours. ibuprofen 2020-10 Yes [id number] 600mg Take 1 Univers 600 mg 1-21 100 tablet by ity of tablet 00:00: mouth [place] 00 every 6 Medical (six) Branch hours. ibuprofen 2020-10 Yes [id number] 600mg Take 1 Univers 600 mg 1-21 100 tablet by ity of tablet 00:00: mouth [place] 00 every 6 Medical (six) Branch hours. ibuprofen 2020-10 Yes [id number] 600mg Take 1 Univers 600 mg 1-21 100 tablet by ity of tablet 00:00: mouth [place] 00 every 6 Medical (six) Branch hours. ibuprofen 2020-10 Yes [id number] 600mg Take 1 Univers 600 mg 1-21 100 tablet by ity of tablet 00:00: mouth [place] 00 every 6 Medical (six) Branch hours. Saline No Notes: Memoria Flush 0.9% 1-15 (Same as: l 21:17: BD [place] 00 Posiflush) Sodium 2019-0 No 1,000 mL, Memori a Chloride 1-15 1,000 l 0.9% 21:17: ml/hr, Serafin (Bolus) IV 00 Infuse Over: 1 hr, Route: IV, 1,000, Drug form: INJ, ONCE, Priority: STAT, Dosing Weight 90.909 kg, Start date: 10/21/19 15:17:00 EXAMINATION SCORER, Stop date: 10/21/19 15:17:00 EXAMINATION SCORER, 0 Saline 2020-0 No Notes: Memoria Flush 0.9% 1-15 (Same as: l 21:17: BD Serafin 00 Posiflush) Sodium 2020-0 No 1,000 mL, Memori a Chloride 1-15 1,000 l 0.9% 21:17: ml/hr, Serafin (Bolus) IV 00 Infuse Over: 1 hr, Route: IV, 1,000, Drug form: INJ, ONCE, Priority: STAT, Dosing Weight 90.909 kg, Start date: 10/21/19 15:17:00 EXAMINATION SCORER, Stop date: 10/21/19 15:17:00 EXAMINATION SCORER, 0 Immunizations Ordered Filled Immunization Date Status Comments Sour e Immunization Name Name Td 2021-08-27 Completed University of 00:00:00 [facility] Td 2021-08-27 Completed University of 00:00:00 [facility] Td 2021-08-27 Completed University of 00:00:00 [facility] Td 2021-08-27 Completed University of 00:00:00 [facility] Td 2021-08-27 Completed University of 00:00:00 [facility] Td 2021-08-27 Completed University of 00:00:00 [facility] HEPATITIS A 2009-11-15 Completed University of 00:00:00 [facility] HEPATITIS A 2009-11-15 Completed University of 00:00:00 [facility] HEPATITIS A 2009-11-15 Completed University of 00:00:00 [facility] HEPATITIS A 2009-11-15 Completed University of 00:00:00 [facility] HEPATITIS A 2009-11-15 Completed University of 00:00:00 [facility] HEPATITIS A 2007-07-21 Completed University of 00:00:00 [facility] Varicella 2007-07-21 Completed University of (varivax)(chicken 00:00:00 [place] M edical pox) Branch HEPATITIS A 2007-07-21 Completed University of 00:00:00 [facility] Varicella 2007-07-21 Completed University of (varivax)(chicken 00:00:00 [facility] edical pox) Branch HEPATITIS A 2007-07-21 Completed University of 00:00:00 [facility] Varicella 2007-07-21 Completed University of (varivax)(chicken 00:00:00 [facility] edical pox) Branch HEPATITIS A 2007-07-21 Completed University of 00:00:00 [facility] Varicella 2007-07-21 Completed University of (varivax)(chicken 00:00:00 [facility] edical pox) Branch HEPATITIS A 2007-07-21 Completed University of 00:00:00 [facility] Varicella 2007-07-21 Completed University of (varivax)(chicken 00:00:00 [facility] edical pox) Branch DTAP 2005-08-21 Completed University of 00:00:00 [facility] MMR 2005-08-21 Completed University of 00:00:00 [facility] Polio (IPV/OPV) 2005-08-21 Completed Universit y of 00:00:00 [facility] DTAP 2005-08-21 Completed University of 00:00:00 [facility] MMR 2005-08-21 Completed University of 00:00:00 [facility] Polio (IPV/OPV) 2005-08-21 Completed Universit y of 00:00:00 [facility] DTAP 2005-08-21 Completed University of 00:00:00 [facility] MMR 2005-08-21 Completed University of 00:00:00 [facility] Polio (IPV/OPV) 2005-08-21 Completed Universit y of 00:00:00 [facility] DTAP 2005-08-21 Completed University of 00:00:00 [facility] MMR 2005-08-21 Completed University of 00:00:00 [facility] Polio (IPV/OPV) 2005-08-21 Completed Universit y of 00:00:00 [facility] DTAP 2005-08-21 Completed University of 00:00:00 [facility] MMR 2005-08-21 Completed University of 00:00:00 [facility] Polio (IPV/OPV) 2005-08-21 Completed Universit y of 00:00:00 [facility] Vital Signs Vital Name Observation Time Observation Value Comments Source Systolic blood 2022-07-21 04:22:01 100 mm[Hg] Univer sity of pressure [facility] Diastolic blood 2022-07-21 04:22:01 62 mm[Hg] Unive rsity of pressure [place] [facility] Heart rate 2022-07-21 04:22:01 95 /min Universi ty of [place] [facility] Respiratory rate 2022-07-21 04:22:01 16 /min Univ ersity of [place] [facility] Oxygen saturation in 2022-07-21 04:22:01 98 /min University of Arterial blood by [place] Medi eladio Pulse oximetry Branch Body temperature 2022-07-21 01:08:00 36.89 Juany Univ ersity of [place] [facility] Body height 2022-07-20 23:56:00 162.6 cm Universi ty of [place] [facility] Body weight 2022-07-20 23:56:00 113.399 kg Universi ty of [place] [facility] BMI 2022-07-20 23:56:00 42.91 kg/m2 Universi ty of [place] [facility] Systolic blood 2022-01-16 16:52:00 134 mm[Hg] Univer sity of pressure [place] [facility] Diastolic blood 2022-01-16 16:52:00 85 mm[Hg] Unive rsity of pressure [place] [facility] Heart rate 2022-01-16 16:52:00 87 /min Universi ty of [place] [facility] Body temperature 2022-01-16 16:52:00 37.06 Juany Univ ersity of [place] [facility] Respiratory rate 2022-01-16 16:52:00 18 /min Univ ersity of [place] [facility] Body height 2022-01-16 16:52:00 165.1 cm Universi ty [facility] [place] [facility] Body weight 2022-01-16 16:52:00 108.863 kg Universi ty [facility] [place] [facility] BMI 2022-01-16 16:52:00 39.94 kg/m2 Universi ty of [place] [facility] Oxygen saturation in 2022-01-16 16:52:00 97 /min University of Arterial blood by [place] Medi eladio Pulse oximetry Branch Systolic blood 2021-09-21 19:46:00 132 mm[Hg] Univer sity of pressure [place] [facility] Diastolic blood 2021-09-21 19:46:00 87 mm[Hg] Unive rsity of pressure [place] [facility] Heart rate 2021-09-21 19:46:00 95 /min Universi ty of [place] [facility] Body temperature 2021-09-21 19:46:00 37.11 Juany [facility] Respiratory rate 2021-09-21 19:46:00 21 /min [facility] Body height 2021-09-21 19:46:00 162.6 cm [facility] Body weight 2021-09-21 19:46:00 109.362 kg [facility] BMI 2021-09-21 19:46:00 41.38 kg/m2 [facility] Respitory Rate 2019-10-21 23:51:00 Memori al Serafin Systolic (mm Hg) 2019-10-21 23:51:00 Dada rial Serafin Diastolic (mm Hg) 2019-10-21 23:51:00 Mem orial Serafin Temperature Oral (F) 2019-10-21 23:51:00 98.2 F [facility] [place] Respitory Rate 2019-10-21 22:11:00 Memori al [place] Systolic (mm Hg) 2019-10-21 22:11:00 Dada rial [place] Diastolic (mm Hg) 2019-10-21 22:11:00 Mem orial Serafin Respitory Rate 2019-10-21 22:09:00 Memori al [place] Systolic (mm Hg) 2019-10-21 22:09:00 Dada rial Serafin Diastolic (mm Hg) 2019-10-21 22:09:00 Mem orial [place] Weight 2019-10-21 21:01:00 Memorial Serafin Heart Rate 2019-10-21 21:01:00 [facility] [place] Temperature Oral (F) 2019-10-21 21:01:00 98.7 F [facility] Serafin Height 2019-10-21 21:01:00 162.56 cm [facility] [place] BMI Calculated 2019-10-21 21:01:00 Memori al [place] Procedures Procedure Date / Time Performed Performing Clinician [facility] e CT ABDOMEN PELVIS W 2022-07-21 02:03:34 Roya Todd [facility] RAPID INFLUENZA A/B 2022-07-21 00:59:00 Roya Todd [facility] COVID-19 (ID NOW RAPID 2022-07-21 00:59:00 Roya Todd [facility] Branch LIPASE 2022-07-21 00:14:00 Roya Todd [facility] Branch MAGNESIUM 2022-07-21 00:14:00 Roya Todd Kristel [facility] COMP. METABOLIC PANEL 2022-07-21 00:14:00 Roya Todd [facility] ([id number]) Medical Branch CBC WITH DIFF 2022-07-21 00:14:00 Roya Todd Kristel [facility] URINALYSIS 2022-07-21 00:14:00 Roya Todd Kristel [facility] POCT TEST 2022-07-21 00:14:00 Roya Todd [facility] ty of [facility] NOTICE OF PRIVACY 2022-07-20 23:38:49 Doctor Unassigned, [facility] CONSENT/REFUSAL FOR 2022-07-20 23:37:11 Doctor Unassigned, No Un iversity of [place] DIAGNOSIS AND Name [facility] TREATMENT CONSENT/REFUSAL FOR 2022-06-20 15:17:54 Doctor Unassigned, No Un iversity of [place] DIAGNOSIS AND Name [facility] Branch TREATMENT NOTICE OF PRIVACY 2022-01-16 16:36:22 Doctor Unassigned, No Univ [facility] Medical Branch CONSENT/REFUSAL FOR 2022-01-16 16:36:08 Doctor Unassigned, No Un iversity of [place] DIAGNOSIS AND Name Medical Branch TREATMENT Encounters Start End Encounter Admission Attending Care Care Encounter Source Date/Time Date/Time Type Type Clinicians Facility Department ID 2022-07-20 2022-07-20 Emergency X Roya TODD [facility] ERT [id number] Univers 18:55:00 23:33:00 ity of [facility] 2022-07-20 2022-07-20 Emergency Roya Todd [facility] [id number] Univers 18:55:00 23:33:00 Kristel CRUZ [id number] i ty [facility] [id number] [facility] [id number] [facility] 084 Branch 2022-06-20 2022-06-20 Emergency X Roya TODD [facility] ERT [id number] Univers 10:47:00 14:17:00 ity of [facility] 2022-06-20 2022-06-20 Emergency Roya Todd [facility] [id number] Univers 10:47:00 14:17:00 Kristel CRUZ [id number] i ty of [place] 4.2.7.2.[place] [facility] [id number] [facility] 084 Branch 2022-01-16 2022-01-16 Emergency X Roya TODD [facility] ERT [id number] Univers 11:53:00 14:24:00 ity of [facility] 2022-01-16 2022-01-16 Emergency Roya Todd [facility] [id number] Univers 11:53:00 14:24:00 Kristel CRUZ [id number] i ty of [place] [id number] [id number] [facility] 084 Branch 2022-01-16 2022-01-16 Orders Doctor LEANNA [id number] Univers 00:00:00 00:00:00 Only Unassigned, ALEX 350.1.13.10 ity of [place] [facility] [id number] Afshin as [id number] [facility] 009 Branch 2021-12-06 2021-12-06 Case RYNE AritaGeorges [id number] Univers 00:00:00 00:00:00 Management Siobhan KOROMA [id number] [place]y [place] [id number] [facility] 086 Branch 2021-09-21 2021-09-21 Office Pgy3 UNIVERSIT [id number] Univers 14:15:00 14:15:00 Visit Natalie Bess [facility] 350.1.13. 10 ity of CL[place] 4[place]2.[place].2.[place] [id number] [facility] 113 Branch 2021-09-21 2021-09-21 Outpatient R SHAHRIAR [facility] [id number] Univers 14:15:00 14:11:32 NATALIE ity of [facility] 2021-09-21 2021-09-21 Orders Doctor LEANNA [id number] Univers 00:00:00 00:00:00 Only Unassigned, ALEX 350.1.13.10 ity of [place] [facility] 4.2.7.2.686 Afshin as [phone] [facility] 009 Branch 2021-09-03 2021-09-03 Emergency X [facility] ERT [id number] Univers 18:27:00 21:05:00 FOLUSHO ity of [facility] 2021-09-03 2021-09-03 Emergency [facility] [id number] Univers 18:27:00 21:05:00 Modestoo Leyda CRUZ 350.1.13.10 ity of [place] 4.2.7.2.[place] [id number] [facility] 084 Branch 2021-09-02 2021-09-02 Nurse Mary Kiser [id number] Univers 00:00:00 00:00:00 Triage ALEX 350.1.13.10 it y of HOSPITAL 4.2.7.2.686 Afshin as [id number] [facility] 019 Branch 2021-08-30 2021-08-30 Orders Doctor RAM 1.2.840.114 [id number] Univers 00:00:00 00:00:00 Only Unassigned, ALEX 350.1.13.10 ity of [place] HOSPITAL 4.2.7.2.686 Afshin as [id number] [facility] 009 Branch 2021-08-29 2021-08-29 Transition KINGSLEY [facility] [id number] Univers 00:00:00 00:00:00 of Care Eli [place] 350.1.13.10 i [place] [id number] [facility] 403 Branch 2021-08-27 2021-08-27 Inpatient X [facility] OBW [id number] Univers 08:43:00 13:58:00 ity of [facility] 2021-08-27 2021-08-27 Hospital LOU Myles [id number] Univers 08:43:00 13:58:00 Encounter Jazmyne JOHNSON 350.1.13.10 ity of [facility] 4.2.7.2.686 Afshin as [id number] [facility] 104 Branch 2021-08-27 2021-08-27 Surgery LOU Myles [id number] Univers 09:00:00 10:26:00 Jazmyne VENTURAY 350.1.13.10 it y of [facility] 4.2.7.2.686 Afshin as [id number] [facility] 103 Branch 2021-08-27 2021-08-27 Emergency X ABBEY, [facility] ERT [id number] Univers 06:46:00 08:25:00 GUTIERREZ ity [facility] 2021-08-27 2021-08-27 Emergency Abbey, [facility] [id number] Univers 06:46:00 08:25:00 Gutierrez CRUZ 350.1.13.10 i ty of [place] 4.2.7.2.686 [facility] [id number] [place] 240814 Branch 2021-08-27 2021-08-27 Emergency X [facility] ERT [id number] Univers 06:46:00 08:25:00 ity of [facility] 2021-07-27 2021-07-27 Emergency X KIRILL JAVED [facility] ERT [id number] Univers 00:57:00 02:21:00 ity of [facility] 2021-07-27 2021-07-27 Emergency Kirill Javed [facility] 1.2.840.114 [id number] Univers 00:57:00 02:21:00 Deborah Cruz 350.1.13.10 i ty of [place] 4.2.7.2.686 [facility] [id number] [facility] 084 Branch 2021-07-04 2021-07-04 Emergency Chnadler [facility] [id number] Univers 17:58:00 20:45:00 Ann Marie Dhillon Alejandrina 350.1.13.10 i ty of [place] 4.2.7.2.686 [facility] [place] [id number] [facility] 084 Branch 2021-07-04 2021-07-04 Emergency X [facility] ERT [id number] Univers 17:52:00 17:52:00 ity of [facility] 2021-07-04 2021-07-04 Orders Doctor LEANNA 1.2.840.114 [id number] Univers 00:00:00 00:00:00 Only Unassigned, ALEX 350.1.13.10 [facility] 4.2.7.2.686 Afshin [id number] [facility] 009 Branch 2021-05-03 2021-05-03 Emergency X YUGEOVANNA [facility] ERT [id number] Univers 01:50:00 01:50:00 VERNA ity [facility] 2020-07-31 2020-07-31 Emergency Singer [facility] [id number] 01:53:00 04:10:00 La Alejandrina 350.1.13.10 [place] 4.2.7.2.686 [place] [id number] [facility] 2020-07-31 2020-07-31 Emergency X [facility] ERT [id number] Univers 01:48:00 01:48:00 LA itlinn [facility] 2020-03-17 2020-03-17 Emergency [facility] [id number] 08:47:37 10:04:00 Alejandrina 350.1.13.10 [place] 4.2.7.2.686 [place] [id number] 2020-03-17 2020-03-17 Emergency X [facility] ERT [id number] Univers 08:32:00 08:32:00 ity of [facility] 2019-11-29 2019-11-29 Emergency X SHERLY [facility] ERT [id number] Univers 12:21:58 14:07:00 MK lawrence [facility] 2019-11-29 2019-11-29 Emergency Sherly [facility] [id number] 12:21:58 14:07:00 Mk Cruz 350.1.13.10 [place] 4.2.7.2.686 [place] [id number] 2019-10-21 2019-10-21 Emergency [facility] [id number] Memoria 21:00:43 23:54:00 [place] 00 l [facility] 2019-10-21 2019-10-21 Emergency [facility] [id number] Memoria 21:00:43 23:54:00 r [place] 00 l [facility] 2019-10-21 2019-10-21 Outpatient [place], 2.16.840. [id number]. [id number] 15:00:43 17:54:00 Neha Bonner [id number] 2019-10-21 2019-10-21 Emergency E MEDINA, MHCY MHCY [id number] MHCY 15:00:00 17:54:00 NEHA Results Test Description Test Time Test Comments Results Result Comments Source CBC WITH DIFF 2022-07-21 01:27:38 Test Item Value Reference Range Interpretation Comme nts WBC (test code = 6690-2) See_Comment [A utomated message] The system which ge nerated this result transmit [place] reference range: 4.30 - 1 1.10 10*3/?L. The reference r denisha was not used to interpr et this result as normal/abnor mal. RBC (test code = 789-8) See_Comment [Au tomated message] The system which ge nerated this result transmit [place] reference range: 3.93 - 5 .25 10*6/?L. The reference r denisha was not used to interpr et this result as normal/abnor mal. HGB (test code = 718-7) 13.4 g/dL 11.6-15 HCT (test code = 4544-3) 41.8 % 35.7-45.2 MCV (test code = 787-2) 80.7 fL 80.6-95.5 MCH (test code = 785-6) 25.9 pg 25.9-32.8 MCHC (test code = 786-4) 32.1 g/dL 31.6-35.1 RDW-SD (test code = 07036-4) 42.4 fL 39-49.9 RDW-CV (test code = 788-0) 14.5 % 12-15.5 PLT (test code = 777-3) See_Comment L [Au tomated message] The system which [employer] nerated this result transmit florence reference range: 166 - 35 8 10*3/?L. The reference range was not used to interpret th is result as normal/abnormal . MPV (test code = 07999-0) 12.6 fL 9.5-12.9 IPF % (test code = 17.2 % 1.3-7.7 H Platelet count measured by [id number]) fluorescence me thod. NRBC/100 WBC (test code = See_Comment [ Automated message] The [id number]) system which [employer] nerated this result transmit florence reference range: 0.0 - 10 .0 /100 WBCs. The reference r denisha was not used to interpr et this result as normal/abnor mal. NRBC x10^3 (test code = See_Comment [Au tomated message] The [id number]) system which [employer] nerated this result transmit florence reference range: 10*3/?L. The reference range was not u sed to interpret this result as normal/abnormal . GRAN MAT (NEUT) % (test code 86.2 % = 770-8) IMM GRAN % (test code = 0.40 % 3813412105) LYMPH % (test code = 736-9) 7.0 % MONO % (test code = 5905-5) 5.1 % EOS % (test code = 713-8) 1.1 % BASO % (test code = 706-2) 0.2 % GRAN MAT x10^3(ANC) (test 7.11 10*3/uL 1.88-7.09 H code = 4974625383) IMM GRAN x10^3 (test code = 0.03 10*3/uL 0-0.06 4796913487) LYMPH x10^3 (test code = 0.58 10*3/uL 1.32-3.29 L 731-0) MONO x10^3 (test code = 0.42 10*3/uL 0.33-0.92 742-7) EOS x10^3 (test code = 0.09 10*3/uL 0.03-0.39 711-2) BASO x10^3 (test code = 0.01-0.07 704-7) Lab Interpretation (test Abnormal code = 19683-7) [facility]42:29 Test Item Value Reference Range Interpretation Comments MAGNESIUM (test code = 7903966842) 1.8 mg/dL 1.7-2.4 Lab Interpretation (test code = Normal 69544-0) [facility] StationCOMP. METABOLIC PANEL (82629)2022-07-21 00:42:08 Test Item Value Reference Range Interpretation Comments NA (test code = 141 mmol/L 135-145 9829121963) K (test code = 3.9 mmol/L 3.5-5 7648355845) CL (test code = 103 mmol/L 98-108 1111502207) CO2 TOTAL (test code 25 mmol/L 23-31 = 0655878852) AGAP (test code = 2-16 5957680141) BUN (test code = 19 mg/dL 7-23 3487059108) GLUCOSE (test code = 98 mg/dL 70-110 6700703273) CREATININE (test code 0.83 mg/dL 0.5-1.04 = 0601718684) TOTAL BILI (test code 0.9 mg/dL 0.1-1.1 = 6941564164) CALCIUM (test code = 9.1 mg/dL 8.6-10.6 6871463442) T PROTEIN (test code 7.0 g/dL 6.3-8.2 = 5133811003) ALBUMIN (test code = 4.4 g/dL 3.5-5 1436419465) ALK PHOS (test code = 72 U/L 34-122 4742497814) ALTv (test code = 20 U/L 5-35 1742-6) AST(SGOT) (test code 22 U/L 13-40 = 1038444579) eGFR (test code = mL/min/1.73m2 8407047076) VIN (test code = VIN) Association of Glomerular Filtration Rate (GFR) and Staging of Kidney Disease* + + +- +| GFR (mL/min/1.73 m2) ?| With Kidney Damage ?| ?Without Kidney Damage+ ------+ ----+ ------+| ?>90 ?| ?Stage one ?| ? Normal ?+ -+ + -+| ?60-89 ?| ?Stage two ?| ? Decreased GFR ? + + +- +| ?30-59 ?| ?Stage three ?| ? Stage three ? + + +- +| ?15-29 ?| ?Stage four ? | ? Stage four ?+ -+ + -+| ?<15 (or dialysis) ? ?| ?Stage five ? | ? Stage five ?+ -+ + -+ *Each stage assumes the associated GFR level has been in effect for at least three months. ?Stages 1 to 5, with or without kidney disease, indicate chronic kidney disease. Notes: Determination of stages one and two (with eGFR >59mL/min/1.73 m2) requires estimation of kidney damage for at least three months as defined by structural or functional abnormalities of the kidney, manifested by either:Pathological abnormalities or Markers of kidney damage (including abnormalities in the composition of the blood or urine or abnormalities in imaging tests). [facility] 00:42:08 Test Item Value Reference Range Interpretation Comments LIPASE (test code = 4628603984) 50 U/L 0-220 Lab Interpretation (test code = Normal 20597-8) [facility] StationPOCT [id number] 00:14:00 Test Item Value Reference Range Interpretation Comments POCT PREG (test code = 1605) negative Lab Interpretation (test code = Normal 78903-4) [facility] [id number] 22:52:00 Test Item Value Reference Range Interpretation Comments C trachomatis by Amp Det Negative *NA*(10/21/19 (APTIMA) (test code = C 4:52 PM) trachomatis by Amp Det (APTIMA)) [facility] [id number] 22:52:00 Test Item Value Reference Range Interpretation Comments N gonorrhea by Amp Det Negative *NA*(10/21/19 (APTIMA) (test code = N 4:52 PM) gonorrhea by Amp Det (APTIMA)) [facility] [id number] 22:52:00 Test Item Value Reference Range Interpretation Comments C trachomatis by Amp Det Negative *NA*(10/21/19 (APTIMA) (test code = C 4:52 PM) trachomatis by Amp Det (APTIMA)) [facility] [id number] 22:52:00 Test Item Value Reference Range Interpretation Comments N gonorrhea by Amp Det Negative *NA*(10/21/19 (APTIMA) (test code = N 4:52 PM) gonorrhea by Amp Det (APTIMA)) [facility] [id number] 22:52:00 Test Item Value Reference Range Interpretation Comments Source APTIMA (test Urine *NA*(10/21/19 code = Source APTIMA) 4:52 PM) [facility] [id number] 22:52:00 Test Item Value Reference Range Interpretation Comments Source APTIMA (test Urine *NA*(10/21/19 code = Source APTIMA) 4:52 PM) [facility] [id number] 22:04:00 Test Item Value Reference Range Interpretation Comments U Amph Scr (test code Negative *NA*(10/21/19 = U Amph Scr) 4:04 PM) [facility] [id number] 22:04:00 Test Item Value Reference Range Interpretation Comments U Cira Scr (test code Negative *NA*(10/21/19 = U Cira Scr) 4:04 PM) [facility] [id number] 22:04:00 Test Item Value Reference Range Interpretation Comments U Benzodiaz Scr (test Positive *ABN*(10/21/19 code = U Benzodiaz Scr) 4:04 PM) [facility] [id number] 22:04:00 Test Item Value Reference Range Interpretation Comments U Cocaine Scr (test Negative *NA*(10/21/19 code = U Cocaine Scr) 4:04 PM) [facility] [id number] 22:04:00 Test Item Value Reference Range Interpretation Comments U Cannab Scr (test Negative *NA*(10/21/19 code = U Cannab Scr) 4:04 PM) [facility] [id number] 22:04:00 Test Item Value Reference Range Interpretation Comments U Opiate Scr (test Negative *NA*(10/21/19 code = U Opiate Scr) 4:04 PM) [facility] [id number] 22:04:00 Test Item Value Reference Range Interpretation Comments U Phencyclidine Scr (test Negative code = U Phencyclidine *NA*(10/21/19 4:04 Scr) PM) [facility] [id number] 22:04:00 Test Item Value Reference Range Interpretation Comments UDS Note (test code = See Note (10/21/19 4:04 UDS Note) PM) [facility] [id number] 22:04:00 Test Item Value Reference Range Interpretation Comments UA Color (test code = Yellow *NA*(10/21/19 UA Color) 4:04 PM) [facility] [id number] 22:04:00 Test Item Value Reference Range Interpretation Comments UA Turbidity (test code = Clear (10/21/19 4:04 UA Turbidity) PM) [facility] [id number] 22:04:00 Test Item Value Reference Range Interpretation Comments UA Spec Grav (test code = UA Spec 1.020 1 Grav) [facility] [id number] 22:04:00 Test Item Value Reference Range Interpretation Comments UA pH (test code = UA pH) 5.5 1 5.0-8.0 [facility] [id number] 22:04:00 Test Item Value Reference Range Interpretation Comments UA Protein (test code Negative (10/21/19 4:04 = UA Protein) PM) [facility] [id number] 22:04:00 Test Item Value Reference Range Interpretation Comments UA Glucose (test code Negative (10/21/19 4:04 = UA Glucose) PM) [facility] [id number] 22:04:00 Test Item Value Reference Range Interpretation Comments UA Ketones (test code Negative *NA*(10/21/19 = UA Ketones) 4:04 PM) [facility] [id number] 22:04:00 Test Item Value Reference Range Interpretation Comments UA Bili (test code = Negative *NA*(10/21/19 UA Bili) 4:04 PM) [facility] [id number] 22:04:00 Test Item Value Reference Range Interpretation Comments UA Blood (test code = Negative (10/21/19 4:04 UA Blood) PM) [facility] [id number] 22:04:00 Test Item Value Reference Range Interpretation Comments UA Urobilinogen (test code = UA 0.2 0.1-1.0 Urobilinogen) [facility] [id number] 22:04:00 Test Item Value Reference Range Interpretation Comments UA Nitrite (test code Negative (10/21/19 4:04 = UA Nitrite) PM) [facility] [id number] 22:04:00 Test Item Value Reference Range Interpretation Comments U Amph Scr (test code Negative *NA*(10/21/19 = U Amph Scr) 4:04 PM) [facility] [id number] 22:04:00 Test Item Value Reference Range Interpretation Comments U Cira Scr (test code Negative *NA*(10/21/19 = U Cira Scr) 4:04 PM) [facility] [id number] 22:04:00 Test Item Value Reference Range Interpretation Comments U Benzodiaz Scr (test Positive *ABN*(10/21/19 code = U Benzodiaz Scr) 4:04 PM) [facility] [id number] 22:04:00 Test Item Value Reference Range Interpretation Comments U Cocaine Scr (test Negative *NA*(10/21/19 code = U Cocaine Scr) 4:04 PM) [facility] [id number] 22:04:00 Test Item Value Reference Range Interpretation Comments U Cannab Scr (test Negative *NA*(10/21/19 code = U Cannab Scr) 4:04 PM) [facility] [id number] 22:04:00 Test Item Value Reference Range Interpretation Comments U Opiate Scr (test Negative *NA*(10/21/19 code = U Opiate Scr) 4:04 PM) [facility] [id number] 22:04:00 Test Item Value Reference Range Interpretation Comments U Phencyclidine Scr (test Negative code = U Phencyclidine *NA*(10/21/19 4:04 Scr) PM) [facility] [id number] 22:04:00 Test Item Value Reference Range Interpretation Comments UA Leuk Est (test Negative (10/21/19 4:04 code = UA Leuk Est) PM) [facility] [id number] 22:04:00 Test Item Value Reference Range Interpretation Comments UDS Note (test code = See Note (10/21/19 4:04 UDS Note) PM) [facility] [id number] 22:04:00 Test Item Value Reference Range Interpretation Comments UA Color (test code = Yellow *NA*(10/21/19 UA Color) 4:04 PM) [facility] [id number] 22:04:00 Test Item Value Reference Range Interpretation Comments UA Turbidity (test code = Clear (10/21/19 4:04 UA Turbidity) PM) [facility] [id number] 22:04:00 Test Item Value Reference Range Interpretation Comments UA Spec Grav (test code = UA Spec 1.020 1 Grav) [facility] [id number] 22:04:00 Test Item Value Reference Range Interpretation Comments UA pH (test code = UA pH) 5.5 1 5.0-8.0 [facility] [id number] 22:04:00 Test Item Value Reference Range Interpretation Comments UA Protein (test code Negative (10/21/19 4:04 = UA Protein) PM) [facility] [id number] 22:04:00 Test Item Value Reference Range Interpretation Comments UA Glucose (test code Negative (10/21/19 4:04 = UA Glucose) PM) [facility] [id number] 22:04:00 Test Item Value Reference Range Interpretation Comments UA Ketones (test code Negative *NA*(10/21/19 = UA Ketones) 4:04 PM) [facility] [id number] 22:04:00 Test Item Value Reference Range Interpretation Comments UA Bili (test code = Negative *NA*(10/21/19 UA Bili) 4:04 PM) [facility] [id number] 22:04:00 Test Item Value Reference Range Interpretation Comments UA Blood (test code = Negative (10/21/19 4:04 UA Blood) PM) [facility] [id number] 22:04:00 Test Item Value Reference Range Interpretation Comments UA Sq Epi (test code = UA Sq Epi) Few /LPF [facility] [id number] 22:04:00 Test Item Value Reference Range Interpretation Comments UA Urobilinogen (test code = UA 0.2 0.1-1.0 Urobilinogen) [facility] [id number] 22:04:00 Test Item Value Reference Range Interpretation Comments UA Nitrite (test code Negative (10/21/19 4:04 = UA Nitrite) PM) [facility] [id number] 22:04:00 Test Item Value Reference Range Interpretation Comments UA Leuk Est (test Negative (10/21/19 4:04 code = UA Leuk Est) PM) [facility] [id number] 22:04:00 Test Item Value Reference Range Interpretation Comments UA Sq Epi (test code = UA Sq Epi) Few /LPF [facility] [id number] 22:04:00 Test Item Value Reference Range Interpretation Comments UA WBC (test code = UA WBC) 3-5 /HPF [facility] [id number] 22:04:00 Test Item Value Reference Range Interpretation Comments UA RBC (test code = 0-2 /HPF See_Comment [Automa florence message] The UA RBC) system which ge nerated this result tra nsmitted reference range : <=2. The reference range was not used to interpr et this result as teena l/abnormal. [facility] [id number] 22:04:00 Test Item Value Reference Range Interpretation Comments UA Bacteria (test code = UA Occasional /HPF Bacteria) [facility] [id number] 22:04:00 Test Item Value Reference Range Interpretation Comments UA Mucus (test code = UA Mucus) Few /LPF [facility] [id number] 22:04:00 Test Item Value Reference Range Interpretation Comments UA WBC (test code = UA WBC) 3-5 /HPF [facility] [id number] 22:04:00 Test Item Value Reference Range Interpretation Comments UA RBC (test code = 0-2 /HPF See_Comment [Automa florence message] The UA RBC) system which ge nerated this result tra nsmitted reference range : <=2. The reference range was not used to interpr et this result as teena l/abnormal. [facility] [id number] 22:04:00 Test Item Value Reference Range Interpretation Comments UA Bacteria (test code = UA Occasional /HPF Bacteria) [facility] [id number] 22:04:00 Test Item Value Reference Range Interpretation Comments UA Mucus (test code = UA Mucus) Few /LPF [facility] [id number] 21:29:00 Test Item Value Reference Range Interpretation Comments Total CK (test code = Total CK) 72 12-191 [facility] [id number] 21:29:00 Test Item Value Reference Range Interpretation Comments Troponin-I (test code no gt See_Comment [Auto mated message] The = Troponin-I) system which g enerated this result transmit florence reference range : <=0.40. The reference r denisha was not used to interpr et this result as teena l/abnormal. [facility] [employer] [id number] 21:29:00 Test Item Value Reference Range Interpretation Comments Glucose Lvl (test code = Glucose Lvl) 85 70-99 [facility] [employer] [id number] 21:29:00 Test Item Value Reference Range Interpretation Comments BUN (test code = BUN) 13 7-22 [facility] [id number] 21:29:00 Test Item Value Reference Range Interpretation Comments Creatinine Lvl (test code = Creatinine 0.80 0.50-1.40 Lvl) [facility] [id number] 21:29:00 Test Item Value Reference Range Interpretation Comments Sodium Lvl (test code = Sodium Lvl) 137 135-145 [facility] [id number] 21:29:00 Test Item Value Reference Range Interpretation Comments Potassium Lvl (test code = Potassium 3.8 3.5-5.1 Lvl) [facility] [employer] [id number] 21:29:00 Test Item Value Reference Range Interpretation Comments Chloride Lvl (test code = Chloride Lvl) 109 95-109 [facility] [employer] [id number] 21:29:00 Test Item Value Reference Range Interpretation Comments CO2 (test code = CO2) 27 24-32 [facility] [id number] 21:29:00 Test Item Value Reference Range Interpretation Comments Calcium Lvl (test code = Calcium Lvl) 8.5 8.5-10.5 [facility] [id number] 21:29:00 Test Item Value Reference Range Interpretation Comments Total Protein (test code = Total 6.6 6.4-8.4 Protein) [facility] [id number] 21:29:00 Test Item Value Reference Range Interpretation Comments Albumin Lvl (test code = Albumin Lvl) 3.5 3.5-5.0 [facility] [id number] 21:29:00 Test Item Value Reference Range Interpretation Comments ALANINE AMINOTRANSFERASE 20 See_Comment [A utomated message] (test code = ALANINE The sys tem which AMINOTRANSFERASE) generated this result transmitted ref erence range: <=65. Th e reference range was not used to int erpret this result as normal/abnormal . [facility] [employer] [id number] 21:29:00 Test Item Value Reference Range Interpretation Comments ASPARTATE TRANSAMINASE 17 See_Comment [Aut omated message] (test code = ASPARTATE The s ystem which TRANSAMINASE) generated this result transmitted ref erence range: <=37. Th e reference range was not used to interpr et this result as normal/abnormal . [facility] [employer] [id number] 21:29:00 Test Item Value Reference Range Interpretation Comments Alk Phos (test code = Alk Phos) 73 43-86 [facility] [employer] [id number] 21:29:00 Test Item Value Reference Range Interpretation Comments Bili Total (test code = Bili Total) 0.3 0.2-1.3 [facility] [id number] 21:29:00 Test Item Value Reference Range Interpretation Comments AGAP (test code = AGAP) 4.8 10.0-20.0 [facility] [id number] 21:29:00 Test Item Value Reference Range Interpretation Comments B/C Ratio (test code = B/C Ratio) 16 1 6-25 [facility] [id number] 21:29:00 Test Item Value Reference Range Interpretation Comments Globulin (test code = Globulin) 3.1 2.7-4.2 [facility]2020-01-15 21:29:00 Test Item Value Reference Range Interpretation Comments A/G Ratio (test code = A/G Ratio) 1.1 1 0.7-1.6 [facility] [id number] 21:29:00 Test Item Value Reference Range Interpretation Comments eGFR (test code = eGFR) 108 [facility]FoanilhCIWHIXVHAWHPV1018-13-26 21:29:00 Test Item Value Reference Range Interpretation Comments S Preg (test code = S Negative *NA*(10/21/19 Preg) 3:29 PM) [facility]mf[facility]wpHYZOPIZMFO2516-40-17 21:29:00 Test Item Value Reference Range Interpretation Comments WBC X 10x3 (test code = WBC X 10x3) 6.8 3.7-10.4 [facility] Hos[id number] 21:29:00 Test Item Value Reference Range Interpretation Comments RBC X 10x6 (test code = RBC X 10x6) 4.73 4.20-5.40 [facility] Hos[id number] 21:29:00 Test Item Value Reference Range Interpretation Comments Hgb (test code = Hgb) 12.2 12.0-16.0 [facility]otrahfYKAMFVDBER5598-59-83 21:29:00 Test Item Value Reference Range Interpretation Comments Hct (test code = Hct) 36.8 36.0-48.0 [facility] HospitalQptiegnAYRYJYUXRR9269-00-35 21:29:00 Test Item Value Reference Range Interpretation Comments MCV (test code = MCV) 77.7 80.0-98.0 [facility] HospitalGlwfepjYLKEDDINAD5492-71-33 21:29:00 Test Item Value Reference Range Interpretation Comments MCH (test code = MCH) 25.8 pg 27.0-31.0 [facility] HospitalKskdombQMVDNQEKDE2827-37-47 21:29:00 Test Item Value Reference Range Interpretation Comments MCHC (test code = MCHC) 33.1 32.0-36.0 [facility] HospitalOfbvixwDSPNAMEHEA6119-45-67 21:29:00 Test Item Value Reference Range Interpretation Comments RDW (test code = RDW) 16.6 11.5-14.5 [facility] HospitalRwrpyskCZPNQJAJAS7145-42-19 21:29:00 Test Item Value Reference Range Interpretation Comments Platelet (test code = Platelet) 101 133-450 [facility] HospitalTraihyoFRGRVJTYKM9012-99-13 21:29:00 Test Item Value Reference Range Interpretation Comments MPV (test code = MPV) 10.8 7.4-10.4 [place] [id number] 21:29:00 Test Item Value Reference Range Interpretation Comments Segs (test code = Segs) 63.9 45.0-75.0 [place] [id number] 21:29:00 Test Item Value Reference Range Interpretation Comments Lymphocytes (test code = Lymphocytes) 23.2 20.0-40.0 [place] 331370-01-15 21:29:00 Test Item Value Reference Range Interpretation Comments Monocytes (test code = Monocytes) 8.0 2.0-12.0 [facility] HospitalStuhqghPAMHDAEYDV0930-02-84 21:29:00 Test Item Value Reference Range Interpretation Comments Eosinophils (test code = 4.5 See_Comment [A utomated message] The Eosinophils) system which ge nerated this result tra nsmitted reference range : <=4.0. The reference r denisha was not used to int erpret this result as normal/abnormal . [facility] HospitalBowbmhyJNFSQAZGNN4604-25-69 21:29:00 Test Item Value Reference Range Interpretation Comments Basophils (test code = 0.4 See_Comment [Aut omated message] The Basophils) system which ge nerated this result tra nsmitted reference range : <=1.0. The reference r denisha was not used to int erpret this result as normal/abnormal . [facility] HospitalCpsdykoUNKXARNYZP1753-91-55 21:29:00 Test Item Value Reference Range Interpretation Comments Neutrophils # (test code = Neutrophils 4.3 1.5-8.1 #) [facility] HospitalOphqgtcZABFRBLGCH2958-58-01 21:29:00 Test Item Value Reference Range Interpretation Comments Lymphocytes # (test code = Lymphocytes 1.6 1.0-5.5 #) [place] 331370-01-15 21:29:00 Test Item Value Reference Range Interpretation Comments Monocytes # (test code 0.5 See_Comment [Aut omated message] The = Monocytes #) system which generated this result tra nsmitted reference range : <=0.8. The reference r denisha was not used to int erpret this result as normal/abnormal . [place] 331370-01-15 21:29:00 Test Item Value Reference Range Interpretation Comments Eosinophils # (test code 0.3 See_Comment [A utomated message] The = Eosinophils #) system whic h generated this result tra nsmitted reference range : <=0.5. The reference r denisha was not used to int erpret this result as normal/abnormal . [facility]SccjzduWXWNNCYNJH2829-17-[facility] 21:29:00 Test Item Value Reference Range Interpretation Comments Microcyte (test code = 1+ *ABN*(10/21/19 Microcyte) 3:29 PM) [facility]CARDI[facility] [id number] 21:29:00 Test Item Value Reference Range Interpretation Comments Total CK (test code = Total CK) 72 12-191 [facility]landEszzjjwRZLRGECQXE3721-31-13 21:29:00 Test Item Value Reference Range Interpretation Comments Ethanol Lvl (test code = Ethanol Lvl) no gt [facility]landZgpprcjIMWDPEMUBK4729-13-16 21:29:00 Test Item Value Reference Range Interpretation Comments Etoh (%) (test code = Etoh (%)) no gt [facility]ARD[facility] [id number] 21:29:00 Test Item Value Reference Range Interpretation Comments Troponin-I (test code no gt See_Comment [Auto mated message] The = Troponin-I) system which g enerated this result transmit [place]orence reference range : <=0.40. The reference r denisha was not used to interpr et this result as teena l/abnormal. [facility] [id number] 21:29:00 Test Item Value Reference Range Interpretation Comments Glucose Lvl (test code = Glucose Lvl) 85 70-99 [facility] [id number] 21:29:00 Test Item Value Reference Range Interpretation Comments BUN (test code = BUN) 13 7-22 [facility] [id number] 21:29:00 Test Item Value Reference Range Interpretation Comments Creatinine Lvl (test code = Creatinine 0.80 0.50-1.40 Lvl) [facility] [id number] 21:29:00 Test Item Value Reference Range Interpretation Comments Sodium Lvl (test code = Sodium Lvl) 137 135-145 [facility] [id number] 21:29:00 Test Item Value Reference Range Interpretation Comments Potassium Lvl (test code = Potassium 3.8 3.5-5.1 Lvl) [facility]leXsens TechnologiesATRIUM HEALTH [id number] 21:29:00 Test Item Value Reference Range Interpretation Comments Chloride Lvl (test code = Chloride Lvl) 109 95-109 [place] [id number] 21:29:00 Test Item Value Reference Range Interpretation Comments CO2 (test code = CO2) 27 24-32 [place] [id number] 21:29:00 Test Item Value Reference Range Interpretation Comments Calcium Lvl (test code = Calcium Lvl) 8.5 8.5-10.5 [facility]leXsens TechnologiesATRIUM HEALTH [id number] 21:29:00 Test Item Value Reference Range Interpretation Comments Total Protein (test code = Total 6.6 6.4-8.4 Protein) [facility]2020-01-15 21:29:00 Test Item Value Reference Range Interpretation Comments Albumin Lvl (test code = Albumin Lvl) 3.5 3.5-5.0 [place] [id number] 21:29:00 Test Item Value Reference Range Interpretation Comments ALANINE AMINOTRANSFERASE 20 See_Comment [A utomated message] (test code = ALANINE The sys tem which AMINOTRANSFERASE) generated this result transmitted ref erence range: <=65. Th e reference range was not used to int erpret this result as normal/abnormal . [facility] [id number] 21:29:00 Test Item Value Reference Range Interpretation Comments ASPARTATE TRANSAMINASE 17 See_Comment [Aut omated message] (test code = ASPARTATE The s ystem which TRANSAMINASE) generated this result transmitted ref erence range: <=37. Th e reference range was not used to interpr et this result as normal/abnormal . [facility] [id number] 21:29:00 Test Item Value Reference Range Interpretation Comments Alk Phos (test code = Alk Phos) 73 43-86 [facility]2020-01-15 21:29:00 Test Item Value Reference Range Interpretation Comments Bili Total (test code = Bili Total) 0.3 0.2-1.3 [place] [id number] 21:29:00 Test Item Value Reference Range Interpretation Comments AGAP (test code = AGAP) 4.8 10.0-20.0 [facility] [id number] 21:29:00 Test Item Value Reference Range Interpretation Comments B/C Ratio (test code = B/C Ratio) 16 1 6-25 [facility] [id number] 21:29:00 Test Item Value Reference Range Interpretation Comments Globulin (test code = Globulin) 3.1 2.7-4.2 [facility] [id number] 21:29:00 Test Item Value Reference Range Interpretation Comments A/G Ratio (test code = A/G Ratio) 1.1 1 0.7-1.6 [facility] [id number] 21:29:00 Test Item Value Reference Range Interpretation Comments eGFR (test code = eGFR) 108 [id number] 21:29:00 Test Item Value Reference Range Interpretation Comments S Preg (test code = S Negative *NA*(10/21/19 Preg) 3:29 PM) [id number] 21:29:00 Test Item Value Reference Range Interpretation Comments WBC X 10x3 (test code = WBC X 10x3) 6.8 3.7-10.4 [id number] 21:29:00 Test Item Value Reference Range Interpretation Comments RBC X 10x6 (test code = RBC X 10x6) 4.73 4.20-5.40 [facility] HospitalYdpaxfhIYASYWZCGR0304-22-72 21:29:00 Test Item Value Reference Range Interpretation Comments Hgb (test code = Hgb) 12.2 12.0-16.0 [facility]qbmiapGIFMKBXTLI3032-07-71 21:29:00 Test Item Value Reference Range Interpretation Comments Hct (test code = Hct) 36.8 36.0-48.0 [facility]ieivdzZITVHGNQSY6112-49-48 21:29:00 Test Item Value Reference Range Interpretation Comments MCV (test code = MCV) 77.7 80.0-98.0 [facility]QqjppxgIUCBWLXJUN2763-83-57 21:29:00 Test Item Value Reference Range Interpretation Comments MCH (test code = MCH) 25.8 pg 27.0-31.0 [facility] HospitalDfdimapFERDDBDVKJ4899-28-19 21:29:00 Test Item Value Reference Range Interpretation Comments MCHC (test code = MCHC) 33.1 32.0-36.0 [facility] H[id number] 21:29:00 Test Item Value Reference Range Interpretation Comments RDW (test code = RDW) 16.6 11.5-14.5 [facility] HospitalEwgrcvaMMCMJAXYLR0448-50-50 21:29:00 Test Item Value Reference Range Interpretation Comments Platelet (test code = Platelet) 101 133-450 [facility] HospitalMqumjgdJNXKSCVDNV6224-66-43 21:29:00 Test Item Value Reference Range Interpretation Comments MPV (test code = MPV) 10.8 7.4-10.4 [facility] HospitalPvcxpycTGARDVXVBY6562-59-37 21:29:00 Test Item Value Reference Range Interpretation Comments Segs (test code = Segs) 63.9 45.0-75.0 [facility] HospitalYgwqpalLSHPZCJRHS7977-70-83 21:29:00 Test Item Value Reference Range Interpretation Comments Lymphocytes (test code = Lymphocytes) 23.2 20.0-40.0 [facility] HospitalHuwrxsoUHZDJIXYAR0896-06-15 21:29:00 Test Item Value Reference Range Interpretation Comments Monocytes (test code = Monocytes) 8.0 2.0-12.0 [facility] HospitalHexmjodTVJGXNKVME9008-06-67 21:29:00 Test Item Value Reference Range Interpretation Comments Eosinophils (test code = 4.5 See_Comment [A utomated message] The Eosinophils) system which ge nerated this result tra nsmitted reference range : <=4.0. The reference r denisha was not used to int erpret this result as normal/abnormal . [facility] H[id number] 21:29:00 Test Item Value Reference Range Interpretation Comments Basophils (test code = 0.4 See_Comment [Aut omated message] The Basophils) system which ge nerated this result tra nsmitted reference range : <=1.0. The reference r denisha was not used to int erpret this result as normal/abnormal . [facility] Hos[id number] 21:29:00 Test Item Value Reference Range Interpretation Comments Neutrophils # (test code = Neutrophils 4.3 1.5-8.1 #) [facility] Ho[id number] 21:29:00 Test Item Value Reference Range Interpretation Comments Lymphocytes # (test code = Lymphocytes 1.6 1.0-5.5 #) [facility] H[id number] 21:29:00 Test Item Value Reference Range Interpretation Comments Monocytes # (test code 0.5 See_Comment [Aut omated message] The = Monocytes #) system which generated this result tra nsmitted reference range : <=0.8. The reference r denisha was not used to int erpret this result as normal/abnormal . [facility] H[id number] 21:29:00 Test Item Value Reference Range Interpretation Comments Eosinophils # (test code 0.3 See_Comment [A utomated message] The = Eosinophils #) system whic h generated this result tra nsmitted reference range : <=0.5. The reference r denisha was not used to int erpret this result as normal/abnormal . [facility] Ho[id number] 21:29:00 Test Item Value Reference Range Interpretation Comments Microcyte (test code = 1+ *ABN*(10/21/19 Microcyte) 3:29 PM) [place] [id number] 21:29:00 Test Item Value Reference Range Interpretation Comments Ethanol Lvl (test code = Ethanol Lvl) no gt [place] [id number] 21:29:00 Test Item Value Reference Range Interpretation Comments Etoh (%) (test code = Etoh (%)) no gt [facility]"
[2022-12-06 17:09] LABS: Absolute Lymphocytes (CBC) 1.8 K/uL (0.7-4.9); Hematocrit 40.7 % (36.0-45.0); Lymphocytes % 25.5 % (15.3-44.8); MCV 79.3 fL (80-100); MPV 10.5 fL (7.6-11.3); RBC Red Blood Cell Count 5.13 M/uL (3.86-4.86)
[2022-12-06 17:29] LABS: Potassium 3.8 mmol/L (3.5-5.1); Troponin High Sensitivity 20.9 pg/mL (<58.9)
--- NOTE | 2022-12-06 18:43 | RAD REPORT ---
[facility] CLINICAL HISTORY: CHEST PAIN COMPARISON: Chest Single View dated 05/14/2022; Chest Pa And Lat (2 Views) dated 10/02/2017; Chest Pa And Lat (2 Views) dated 08/06/2017 TECHNIQUE: Portable AP view of the chest. FINDINGS: Decreased inspiratory effort, limits evaluation. The lungs are clear. No pneumothorax or e ffusion. The cardiomediastinal contours are unremarkable. IMPRESSION: No acute cardiopulmonary process.
[2022-12-06] MEDS ORDERED: NA CHLORIDE 0.9% 1,000 ML ONE (19:29)
--- NOTE | 2022-12-06 19:56 | ER ---
Nurse's Notes [facility] Name: Momo Parnell Age: 22 yrs Sex: Female : 2000 Arrival Date: 12/06/2022 Time: 16:21 Bed 20 Private MD: Diagnosis: SARS-associated coronavirus as the cause of diseases classified elsewhere Presentation: 12/06 16:50 Chief complaint: Patient states: loss of smell and taste, pain with inspiration, cough, aa5 congestion, fever, and generalized weakness. Coronavirus screen: congestion, cough unrelated to allergies, fever, loss of taste or smell. Ebola Screen: Patient denies travel to an Ebola-affected area in the 21 days before illness onset. Initial Sepsis Screen: Does the patient meet any 2 criteria? HR > 90 bpm. Does the patient have a suspected source of infection? No. Patient's initial sepsis screen is negative. Risk Assessment: Do you want to hurt yourself or someone else? Patient reports no desire to harm self or others. Onset of symptoms was 2022. 16:50 Acuity: JULI 4 aa5 16:50 Method Of Arrival: Ambulatory aa5 Historical: - Allergies: 16:52 Iodinated Contrast Media - IV Dye; aa5 - Home Meds: 16:52 None [Active]; aa5 - PMHx: 16:52 Seizures; aa5 - Immunization history:: Client reports having NOT received the Covid vaccine. - Social history:: Smoking status: unknown. Screenin:[facility] ED Fall Risk Assessment (Adult) History of falling in the last 3 months, ha1 including since admission No falls in past 3 months (0 pts) Confusion or Disorientation No (0 pts) Intoxicated or Sedated No (0 pts) Impaired Gait No (0 pts) Mobility Assist Device Used No (0 pt) Altered Elimination No (0 pt) Score/Fall Risk Level 0 - 2 = Low Risk Oriented to surroundings, Maintained a safe environment, Educated pt \T\ family on fall prevention, incl call for assistance when getting out of bed. Abuse screen: Denies threats or abuse. Denies injuries from another. Nutritional screening: No deficits noted. Tuberculosis screening: No symptoms or risk factors identified. Assessment: 19:34 General: Appears comfortable, Behavior is calm, cooperative. Pain: Complains of pain in ha1 left shoulder Pain does not radiate. Pain currently is 3 out of 10 on a pain scale. Quality of pain is described as piercing. Neuro: Level of Consciousness is awake, alert, obeys commands, Oriented to person, place, time, situation. Cardiovascular: Heart tones S1 S2 present Capillary refill < 3 seconds Patient's skin is warm and dry. Respiratory: Airway is patent Respiratory effort is even, unlabored, Respiratory pattern is regular, symmetrical. Respiratory: Reports cough that is dry, Covid 19 positive. GI: No signs and/or symptoms were reported involving the gastrointestinal system. : No signs and/or symptoms were reported regarding the genitourinary system. Derm: Skin is pink, warm \T\ dry. Musculoskeletal: Circulation, motion, and sensation intact. Range of motion: intact in all extremities. 20:17 Reassessment: Patient and/or family updated on plan of care and expected duration. Pain ha1 level reassessed. Patient is alert, oriented x 3, equal unlabored respirations, skin warm/dry/pink. Vital Signs: 16:50 BP 114 / 93; Pulse 107; Resp 18 S; Temp 98.6(TE); Pulse Ox 98% on R/A; Weight 116.57 kg aa5 (R); Height 5 ft. 4 in. (162.56 cm) (R); 19:36 BP 104 / 70; Pulse 74; Resp 18 S; Pulse Ox 98% on R/A; ha1 20:17 BP 110 / 70; Pulse 72; Resp 18 S; Temp 98.2; Pulse Ox 99% on R/A; ha1 16:50 Body Mass Index 44.11 (116.57 kg, 162.56 cm) aa5 ED Course: 16:21 Patient arrived in ED. mr 16:33 Evelyn Turner FNP-C is PHCP. kb 16:33 Deondre Mars MD is Attending Physician. kb 16:50 Arm band placed on. aa5 16:52 Triage completed. aa5 18:17 Chest Single View XRAY In Process Unspecified. EDMS 19:23 Danya Velazco, MOHINI is Primary Nurse. ha1 19:38 Patient has correct armband on for positive identification. Bed in low position. Call ha1 light in reach. Side rails up X 1. 20:18 No provider procedures requiring assistance completed. IV discontinued, intact, ha1 bleeding controlled, No redness/swelling at site. Pressure dressing applied. Administered Medications: 19:33 Drug: NS 0.9% 1000 ml Route: IV; Rate: 1000 ml; Site: left antecubital; ha1 20:19 Follow up: Response: No adverse reaction; IV Status: Completed infusion; IV Intake: ha1 800ml Medication: 20:18 VIS not applicable for this client. ha1 Intake: 20:19 IV: 800ml; Total: 800ml. ha1 Outcome: 19:55 Discharge ordered by MD. swanson 20:18 Discharged to home ambulatory. ha1 20:18 Condition: stable 20:18 Discharge instructions given to patient, Instructed on discharge instructions, follow up and referral plans. Demonstrated understanding of instructions, follow-up care. 20:19 Patient left the ED. ha1 Signatures: Dispatcher [employer] EDMS Evelyn Turner, RESPIRATORY MEDICINE PHYSICIAN-C RESPIRATORY MEDICINE PHYSICIAN-Ckb Winsome Cuevas mr RodCrystal, RN RN aa5 Danya Velazco, MOHINI RN ha1 Corrections: (The following items were deleted from the chart) 20:18 20:17 BP 110 / 70; Pulse 72bpm; Resp 18bpm; Spontaneous; Pulse Ox 99% RA; ha1 ha1
--- NOTE | 2022-12-06 19:56 | EDPHYS ---
Physician Documentation [facility] Name: Momo Parnell Age: 22 yrs Sex: Female : 2000 Arrival Date: 12/06/2022 Time: 16:21 Bed 20 Private MD: ED Physician Deondre Mars HPI: 12/06 19:55 This 22 yrs old Female presents to ER via Ambulatory with complaints of Covid+. kb 19:55 The patient or guardian reports cough, that is intermittent, described as mild, flu kb symptoms, low-grade fever, myalgias. Onset: The symptoms/episode began/occurred 3 day(s) ago. Severity of symptoms: At their worst the symptoms were moderate, in the emergency department the symptoms are unchanged. Modifying factors: The symptoms are alleviated by nothing, the symptoms are aggravated by nothing. Associated signs and symptoms: Pertinent positives: fever, rhinorrhea. The patient has not experienced similar symptoms in the past. The patient has not recently seen a physician. Historical: - Allergies: 16:52 Iodinated Contrast Media - IV Dye; aa5 - Home Meds: 16:52 None [Active]; aa5 - PMHx: 16:52 Seizures; aa5 - Immunization history:: Client reports having NOT received the Covid vaccine. - Social history:: Smoking status: unknown. ROS: 19:54 Abdomen/GI: Negative for abdominal pain, nausea, vomiting, diarrhea, and constipation. kb 19:54 Constitutional: Positive for body aches, fatigue, fever, malaise. 19:54 ENT: Positive for sinus congestion. 19:54 Respiratory: Positive for cough, pain with inspiration. 19:54 Neuro: Positive for headache, weakness. 19:54 All other systems are negative. Exam: 19:54 Constitutional: This is a well developed, well nourished patient who is awake, alert, kb and in no acute distress. Head/Face: Normocephalic, atraumatic. ENT: Moist Mucous membranes Cardiovascular: Regular rate and rhythm with a normal S1 and S2. No gallops, murmurs, or rubs. No pulse deficits. Respiratory: Respirations even and unlabored. No increased work of breathing. Talking in full sentences Abdomen/GI: Soft, non-tender. No distention Skin: Warm, dry with normal turgor. Normal color. MS/ Extremity: Pulses equal, no cyanosis. Neurovascular intact. Full, normal range of motion. Neuro: Awake and alert, GCS 15, oriented to person, place, time, and situation. Moves all extremities. Normal gait. Vital Signs: 16:50 BP 114 / 93; Pulse 107; Resp 18 S; Temp 98.6(TE); Pulse Ox 98% on R/A; Weight 116.57 kg aa5 (R); Height 5 ft. 4 in. (162.56 cm) (R); 19:36 BP 104 / 70; Pulse 74; Resp 18 S; Pulse Ox 98% on R/A; ha1 20:17 BP 110 / 70; Pulse 72; Resp 18 S; Temp 98.2; Pulse Ox 99% on R/A; ha1 16:50 Body Mass Index 44.11 (116.57 kg, 162.56 cm) aa5 MDM: 16:43 Patient medically screened. kb 19:51 Differential diagnosis: viral Infection, bacterial infection, URI, Pneumonia, COVID. kb Data reviewed: vital signs, nurses notes. I considered the following discharge prescriptions or medication management in the emergency department I discussed and recommended Over The Counter medications. Counseling: I had a detailed discussion with the patient and/or guardian regarding: the historical points, exam findings, and any diagnostic results supporting the discharge/admit diagnosis, lab results, radiology results, the need for outpatient follow up, a family practitioner, to return to the emergency department if symptoms worsen or persist or if there are any questions or concerns that arise at home. 19:54 ED course: patient is a 22-year-old female who presents with cough, congestion, fever, kb generalized weakness, loss of taste and smell that started 3 days ago. Reports pain with inspiration started today. Took a COVID test yesterday that was positive. On exam patient has equal and unlabored respirations, lungs clear throughout, nontoxic in appearance. Serum labs, chest x-ray completed and reviewed. Patient educated on symptomatic treatment and follow-up with PCP. . 20:18 Scoring Tools PERC Rule for PE Age >/= 50 No HR >/= 100 No O2 Sat Room Air < 95% No kb Unilateral leg swelling No Hemoptysis No Recent surgery or trauma </= 4 wks ago requiring treatment with general anesthesia No (0 pt) Prior PE or DVT No Hormone use (Oral contraceptives, hormone replacement or estrogenic hormones use in males or female patients No. 12/06 16:44 Order name: CBC with Diff; Complete Time: 17:22 kb 12/06 16:44 Order name: Basic Metabolic Panel; Complete Time: 17:31 kb 12/06 16:44 Order name: IV Start; Complete Time: 17:22 kb 12/06 16:44 Order name: Chest Single View XRAY; Complete Time: 18:52 kb 12/06 16:44 Order name: Troponin High Sensitivity; Complete Time: 17:31 kb 12/06 16:44 Order name: EKG; Complete Time: 16:44 kb 12/06 16:44 Order name: EKG - Nurse/Tech; Complete Time: 20:11 kb Administered Medications: 19:33 Drug: NS 0.9% 1000 ml Route: IV; Rate: 1000 ml; Site: left antecubital; ha1 20:19 Follow up: Response: No adverse reaction; IV Status: Completed infusion; IV Intake: ha1 800ml Disposition Summary: 12/06/22 19:55 Discharge Ordered Location: Home kb Condition: Stable kb Diagnosis - SARS-associated coronavirus as the cause of diseases classified elsewhere kb Followup: kb - With: Emergency Department - When: As needed - Reason: Worsening of condition Followup: kb - With: Private Physician - When: 2 - 3 days - Reason: Recheck today's complaints, Continuance of care, Re-evaluation by your physician Discharge Instructions: - Discharge Summary Sheet kb - COVID-19 kb - Viral Illness, Adult kb Forms: - Medication Reconciliation Form kb - Thank You Letter kb - Antibiotic Education kb - Prescription Opioid Use kb Signatures: Dispatcher [employer] Evelyn Charlton, REVIEWER SALES-C REVIEWER SALES-Crystal Ray, RN RN aa5 Danya Velazco RN RN ha1
[2022-12-06 20:25] VITALS: BP 110/70; TEMP 98.2; O2SAT 99
--- NOTE | 2022-12-07 14:30 | EKG ---
Test Date: 2022-12-06 Test Time: 20:05:55 Humanities Department Chair: AMY MEASUREMENT RESULTS: Intervals: Rate: 72 VA: 114 QRSD: 96 QT: 394 QTc: 431 [place]: P: 38 VA: 114 QRS: 68 T: 16 INTERPRETIVE STATEMENTS: Normal sinus rhythm Possible Inferior infarct, age undetermined Anterolateral infarct, age undetermined Abnormal ECG Compared to ECG 05/14/2022 09:36:55 Myocardial infarct finding now present Myocardial infarct finding now present Electronically Signed On 12-07-22 14:28:24 FRAME [employer] SP[employer]LE by Aristeo Hurst
== END 2022-12-06 20:19 | disposition home or self-care (01) ==
LOC: ER 16:16
DX: U07.1 COVID-19 (principal); Z91.041 Radiographic dye allergy status
CPT/HCPCS: 36415; 71045; 80048; 84484; 85025; 93005; 96360; 99283; J7030

== ENCOUNTER 2023-06-03 21:49 | Emergency (ER) | payer SELFPAY ==
--- NOTE | 2023-06-03 21:56 | EDPHYS ---
Physician Documentation [facility] Name: Momo Parnell Age: 23 yrs Sex: Female : 2000 Arrival Date: 06/03/2023 Time: 21:49 Bed [id number] Private MD: ED Physician Andriy Tavera HPI: 06/03 21:57 This 23 yrs old Female presents to ER via Ambulatory with complaints of Sore Throat, kb Cough. 21:57 The patient presents with sore throat. The patient describes throat pain as constant. kb Onset: The symptoms/episode began/occurred yesterday. Severity of symptoms: At their worst the symptoms were moderate, in the emergency department the symptoms are unchanged. Modifying factors: The symptoms are alleviated by nothing, the symptoms are aggravated by swallowing, Patient's oral intake status: limited fluid intake, limited food intake. Associated signs and symptoms: Pertinent positives: Sore throat. The patient has not experienced similar symptoms in the past. The patient has not recently seen a physician. Historical: - Allergies: 21:57 Iodinated Contrast Media - IV Dye; cm10 - PMHx: 21:57 Seizures; cm10 - Immunization history:: Adult Immunizations unknown. - Social history:: Smoking status: Reported history of juuling and/or vaping. ROS: 21:57 Respiratory: Negative for shortness of breath, cough, wheezing, and pleuritic chest kb pain. 21:57 ENT: Positive for sore throat. 21:57 All other systems are negative. Exam: 21:57 Constitutional: This is a well developed, well nourished patient who is awake, alert, kb and in no acute distress. Head/Face: Normocephalic, atraumatic. Cardiovascular: Regular rate and rhythm with a normal S1 and S2. No gallops, murmurs, or rubs. No pulse deficits. Respiratory: Respirations even and unlabored. No increased work of breathing. Talking in full sentences Skin: Warm, dry with normal turgor. Normal color. MS/ Extremity: Pulses equal, no cyanosis. Neurovascular intact. Full, normal range of motion. Neuro: Awake and alert, GCS 15, oriented to person, place, time, and situation. Moves all extremities. Normal gait. 21:57 ENT: Posterior pharynx: Airway: normal, no evidence of obstruction, Tonsils: bilaterally enlarged, with erythema, with exudate, swelling, that is moderate, erythema, that is moderate, exudate, that is moderate. Vital Signs: 21:55 BP 128 / 84; Pulse 102; Resp 16; Temp 98.2; Pulse Ox 100% ; Weight 115.67 kg; Height 5 cm10 ft. 4 in. ; Pain 9/10; 21:55 Body Mass Index 43.77 (115.67 kg, 162.56 cm) cm10 21:55 Pain Scale: Adult cm10 MDM: 21:53 Patient medically screened. kb 21:58 Differential diagnosis: tonsillitis,strep, pharyngitis. Data reviewed: vital signs, kb nurses notes. Test considered but Not performed: Labs: strep test considered, but result would not change plan of care. Counseling: I had a detailed discussion with the patient and/or guardian regarding the historical points, exam findings, and any diagnostic results supporting the discharge/admit diagnosis, the need for outpatient follow up, a family practitioner, to return to the emergency department if symptoms worsen or persist or if there are any questions or concerns that arise at home. Administered Medications: 22:06 Drug: Amoxicillin-Clavulanate PO 875 mg Route: PO; cm10 22:19 Follow up: Response: No adverse reaction as6 22:07 Drug: Dexamethasone IM 10 mg Route: IM; Site: left gluteus; cm10 22:19 Follow up: Response: No adverse reaction as6 Disposition Summary: 06/03/23 21:56 Discharge Ordered Location: Home kb Condition: Stable kb Diagnosis - Acute tonsillitis, unspecified kb Followup: kb - With: Emergency Department - When: As needed - Reason: Worsening of condition Followup: kb - With: Private Physician - When: 2 - 3 days - Reason: Recheck today's complaints, Continuance of care, Re-evaluation by your physician Discharge Instructions: - Discharge Summary Sheet kb - Tonsillitis, [id number] kb Forms: - Work release form kb - Medication Reconciliation Form kb - Thank You Letter kb - Antibiotic Education kb - Prescription Opioid Use kb - Patient Portal Instructions kb - Leadership Thank You Letter kb Prescriptions: - Augmentin 875-125 mg Oral Tablet - take 1 tablet by ORAL route every 12 hours for 10 days; 20 tablet; Refills: 0, kb Product Selection Permitted Signatures: Evelyn Turner, STORE SALES LEADER-C STORE SALES LEADER-Ckb Maureen Tse, RN RN cm10 Obey Medina RN as6
--- OUTSIDE RECORDS SUMMARY | 2023-06-03 21:56 | XMS REPORT | Continuity of Care Document ---
:2000 Author Organization [facility] [place] [facility] t Address [address] [place] [address] [place] [address] [id number] Care Team Providers Name Role Phone Pcp, Patient Does Not Have A Primary Care Physician [id number] Roya TODD Attending Clinician Unavailable Roya Ramirez Attending Clinician Doctor Unassigned, [place] Attending Clinician Unavailable Siobhan Arita LMSW Attending [...] Number Effective Date Expiration Date S [email or web address] [facility] [id number] 2021 HEALTHCARE 00:00:00 [facility] [id number] 2019 00:00:00 Problems Condition Condition Condition Status [...] Added automatic ally from request for surgery [id number] Morbid Morbid Disease Active 2020-10 Univers obesity [...] He vivian s s 00 10/21/2019 0 [facility] Allergies, Adverse Reactions, Alerts Allergy Allergy Status [...] Memori a Medicati Medicati l on on [place] Allergie Allergie s s Social History Social Habit Start Date Stop Date Quantity Comments Source Exposure to 2021-12-17 2022-01-16 Not sure [facility] SARS-CoV-2 (event) 00:00:00 11:36:00 Medica l Branch Sex Assigned At 2000 2001 [facility] 00:00:00 00:00:00 Medical Branch Smoking Status Start Date Stop Date Source Tobacco smoking consumption [facility] unknown Branch Social History [facility] Medications Ordered Filled Start Stop Current Ordering [...] ity of 1,000 mg in 03:45: 04:13 [place], [place] NaCl 0.9% 00 :00 ONCE, 1 Medical (NS) 50 mL dose, On Branc h MINI-BAG 07/20/22 at 2245, Administer over 30 Minutes, 50 mL
Reas on for Anti-Infec tive: Documented Infection< br>Documen [place] Infection Site: Urine<br&g t;Duration of Therapy: Other (see Comments) iopamidol 2021-10- No [id number] 70mL 70 mL, U nivers (ISOVUE 0-15 [...] 07/20/22 at 2015, ANGELES ondansetron 2021-10 Yes [id number] 4mg Take 1 Univers 4 mg 0-14 tablet by ity of disintegrat 00:00: mouth [place] ing tablet 00 every 8 Medica l (eight) Branch hours as needed for Nausea and Vomiting (N/V). cefdinir 2021-10- No [id number] 300mg Take 1 U nivers 300 mg 0-14 - capsule by ity of capsule 00:00: 04:59 mouth in [place] 00 :00 the Medical morning Branch and 1 capsule in the evening. Do all this for 7 days. ofloxacin Yes [id number] 5[drp] Place 5 Univers 0.3 % otic 4-12 [id number] Drops in ity of drops 00:00: left ear 2 [place] 00 (two) Medical times Branch daily. ofloxacin Yes [id number] 5[drp] Place 5 Univers 0.3 % otic 4-12 [id number] Drops in ity of drops 00:00: left ear 2 [place] 00 (two) Medical times Branch daily. ofloxacin Yes [id number] 5[drp] Place 5 Univers 0.3 % otic 4-12 [id number] Drops in ity of drops 00:00: left ear 2 [place] 00 (two) Medical times Branch daily. ibuprofen 2020-10 Yes [id number] 600mg Take 1 Univers 600 mg 1-21 100 tablet by ity of tablet 00:00: mouth [place] 00 every 6 Medical (six) Branch hours. ibuprofen 2020-10 Yes [id number] 600mg Take 1 Univers 600 mg 1-21 100 tablet by ity of tablet 00:00: mouth [place] 00 every 6 Medical (six) Branch hours. ibuprofen 2020-10 Yes [id number] 600mg Take 1 Univers 600 mg 1-21 100 tablet by ity of tablet 00:00: mouth [place] 00 every 6 Medical (six) Branch hours. ibuprofen 2020-10 Yes [id number] 600mg Take 1 Univers 600 mg 1-21 100 tablet by ity of tablet 00:00: mouth [place] 00 every 6 Medical (six) Branch hours. ibuprofen 2020-10 Yes [id number] 600mg Take 1 Univers 600 mg 1-21 100 tablet by ity of tablet 00:00: mouth [place] 00 every 6 Medical (six) Branch hours. ibuprofen 2020-10 Yes [id number] 600mg Take 1 Univers 600 mg 1-21 100 tablet by ity of tablet 00:00: mouth [place] 00 every 6 Medical (six) Branch hours. Saline No Notes: Memoria Flush 0.9% 1-15 (Same as: l 21:17: BD [place] 00 Posiflush) Sodium 2019-0 No 1,000 mL, Memori a Chloride 1-15 1,000 l 0.9% 21:17: ml/hr, Serafin (Bolus) IV 00 Infuse Over: 1 hr, Route: IV, 1,000, Drug form: INJ, ONCE, Priority: STAT, Dosing Weight 90.909 kg, Start date: 10/21/19 15:17:00 SILL WORKER, Stop date: 10/21/19 15:17:00 SILL WORKER, 0 Saline 2020-0 No Notes: Memoria Flush 0.9% 1-15 (Same as: l 21:17: BD Serafin 00 Posiflush) Sodium 2020-0 No 1,000 mL, Memori a Chloride 1-15 1,000 l 0.9% 21:17: ml/hr, Serafin (Bolus) IV 00 Infuse Over: 1 hr, Route: IV, 1,000, Drug form: INJ, ONCE, Priority: STAT, Dosing Weight 90.909 kg, Start date: 10/21/19 15:17:00 SILL WORKER, Stop date: 10/21/19 15:17:00 SILL WORKER, 0 Saline 2020-0 No Notes: Memoria Flush 0.9% 1-15 (Same as: l 21:17: BD Serafin 00 Posiflush) Sodium 2020-0 No 1,000 mL, Memori a Chloride 1-15 1,000 l 0.9% 21:17: ml/hr, [place] (Bolus) IV 00 Infuse Over: 1 hr, Route: IV, 1,000, Drug form: INJ, ONCE, Priority: STAT, Dosing Weight 90.909 kg, Start date: 10/21/19 15:17:00 SILL WORKER, Stop date: 10/21/19 15:17:00 SILL WORKER, 0 Immunizations Ordered Filled Immunization Date Status Comments [facility] e Immunization Name Name Td 2021-08-27 Completed University of 00:00:00 [facility] Td 2021-08-27 Completed University of 00:00:00 [facility] Td 2021-08-27 Completed University of 00:00:00 [facility] Td 2021-08-27 Completed University of 00:00:00 [facility] Td 2021-08-27 Completed University of 00:00:00 [facility] Td 2021-08-27 Completed University of 00:00:00 [facility] HEPATITIS A 2009-11-15 Completed University of 00:00:00 [facility] HEPATITIS A 2009-11-15 Completed University of 00:00:00 [facility] HEPATITIS A 2009-11-15 Completed University of 00:00:00 [facility] HEPATITIS A 2009-11-15 Completed University of 00:00:00 [facility] HEPATITIS A 2009-11-15 Completed University of 00:00:00 [facility] HEPATITIS A 2007-07-21 Completed University of 00:00:00 [facility] Varicella 2007-07-21 Completed University of (varivax)(chicken 00:00:00 [place] M edical pox) Branch HEPATITIS A 2007-07-21 Completed University of 00:00:00 [facility] Varicella 2007-07-21 Completed University of (varivax)(chicken 00:00:00 [place] M edical pox) Branch HEPATITIS A 2007-07-21 Completed University of 00:00:00 [facility] Varicella 2007-07-21 Completed University of (varivax)(chicken 00:00:00 [place] M edical pox) Branch HEPATITIS A 2007-07-21 Completed University of 00:00:00 [facility] Varicella 2007-07-21 Completed University of (varivax)(chicken 00:00:00 [place] edical pox) Branch HEPATITIS A 2007-07-21 Completed University of 00:00:00 [facility] Varicella 2007-07-21 Completed University of (varivax)(chicken 00:00:00 [facility] edical pox) Branch DTAP 2005-08-21 Completed University of 00:00:00 [facility] MMR 2005-08-21 Completed University of 00:00:00 [facility] Polio (IPV/OPV) 2005-08-21 Completed Universit y of 00:00:00 [facility] DTAP 2005-08-21 Completed University of 00:00:00 [facility] MMR 2005-08-21 Completed University of 00:00:00 [facility] Polio (IPV/OPV) 2005-08-21 Completed Universit y of 00:00:00 [facility] DTAP 2005-08-21 Completed University of 00:00:00 [facility] MMR 2005-08-21 Completed University of 00:00:00 [facility] Polio (IPV/OPV) 2005-08-21 Completed Universit y of 00:00:00 [facility] DTAP 2005-08-21 Completed University of 00:00:00 [facility] MMR 2005-08-21 Completed University of 00:00:00 [facility] Polio (IPV/OPV) 2005-08-21 Completed Universit y of 00:00:00 [facility] DTAP 2005-08-21 Completed University of 00:00:00 [facility] MMR 2005-08-21 Completed University of 00:00:00 [facility] Polio (IPV/OPV) 2005-08-21 Completed Universit y of 00:00:00 [facility] Vital Signs Vital Name Observation Time Observation Value Comments Source Systolic blood 2022-07-21 04:22:01 100 mm[Hg] Univer sity of pressure [facility] Diastolic blood 2022-07-21 04:22:01 62 mm[Hg] Unive rsity of pressure [facility] Heart rate 2022-07-21 04:22:01 95 /min Universi ty of [facility] Respiratory rate 2022-07-21 04:22:01 16 /min [facility] saturation in 2022-07-21 04:22:01 98 /min University Arterial blood by [facility] Pulse oximetry Branch Body temperature 2022-07-21 01:08:00 36.89 Juany [facility] Body height 2022-07-20 23:56:00 162.6 cm Universi ty of [facility] Body weight 2022-07-20 23:56:00 113.399 kg Universi ty [facility] BMI 2022-07-20 23:56:00 42.91 kg/m2 Universi ty [facility] Systolic blood 2022-01-16 16:52:00 134 mm[Hg] Univer sity of pressure [facility] Diastolic blood 2022-01-16 16:52:00 85 mm[Hg] Unive rsity of pressure [facility] Heart rate 2022-01-16 16:52:00 87 /min Universi ty [facility] Body temperature 2022-01-16 16:52:00 37.06 Juany Univ ersity of [facility] Respiratory rate 2022-01-16 16:52:00 18 /min Univ ersity [facility] Body height 2022-01-16 16:52:00 165.1 cm Universi ty [facility] Body weight 2022-01-16 16:52:00 108.863 kg [facility] BMI 2022-01-16 16:52:00 39.94 kg/m2 [facility] Oxygen saturation in 2022-01-16 16:52:00 97 /min [facility] Arterial blood by [facility] Pulse oximetry [place] Systolic blood 2021-09-21 19:46:00 132 mm[Hg] Univer sity of pressure [facility] Diastolic blood 2021-09-21 19:46:00 87 mm[Hg] Unive rsity of pressure [facility] Heart rate 2021-09-21 19:46:00 95 /min [facility] Body temperature 2021-09-21 19:46:00 37.11 Juany [facility] Respiratory rate 2021-09-21 19:46:00 21 /min [facility] Body height 2021-09-21 19:46:00 162.6 cm [facility] Body weight 2021-09-21 19:46:00 109.362 kg [facility] BMI 2021-09-21 19:46:00 41.38 kg/m2 [facility] Respitory Rate 2019-10-21 23:51:00 Memori al [place] Systolic (mm Hg) 2019-10-21 23:51:00 Dada rial Serafin Diastolic (mm Hg) 2019-10-21 23:51:00 Mem orial Serafin Temperature Oral (F) 2019-10-21 23:51:00 98.2 F [facility] [place] Respitory Rate 2019-10-21 22:11:00 Memori al [place] Systolic (mm Hg) 2019-10-21 22:11:00 Dada rial [place] Diastolic (mm Hg) 2019-10-21 22:11:00 Mem orial Serafin Respitory Rate 2019-10-21 22:09:00 Memori al Serafin Systolic (mm Hg) 2019-10-21 22:09:00 Dada rial Serafin Diastolic (mm Hg) 2019-10-21 22:09:00 Mem orial Serafin Heart Rate 2019-10-21 21:01:00 Memorial Serafin Temperature Oral (F) 2019-10-21 21:01:00 98.7 F [facility] Serafin Height 2019-10-21 21:01:00 162.56 cm [facility] BMI Calculated 2019-10-21 21:01:00 Minesh al Serafin Weight 2019-10-21 21:01:00 [facility] Procedure Date / Time Performed Performing Clinician Christi e CT ABDOMEN PELVIS W 2022-07-21 02:03:34 Roya Todd [facility] CONTRAST Medical Branch RAPID INFLUENZA A/B 2022-07-21 00:59:00 Roya Todd [facility] COVID-19 (ID NOW RAPID 2022-07-21 00:59:00 Roya Todd [facility] TESTING) Medical Branch LIPASE 2022-07-21 00:14:00 Roya Todd [place] [facility] MAGNESIUM 2022-07-21 00:14:00 Roya Todd Kristel [facility] COMP. METABOLIC PANEL 2022-07-21 00:14:00 Roya Todd [facility] ([id number]) Medical Branch CBC WITH DIFF 2022-07-21 00:14:00 Roya Todd [facility] URINALYSIS 2022-07-21 00:14:00 [facility] POCT TEST 2022-07-21 00:14:00 Roya Todd [facility] NOTICE OF PRIVACY 2022-07-20 23:38:49 Doctor Unassigned, No Univ [facility] Medical Branch CONSENT/REFUSAL FOR 2022-07-20 23:37:11 Doctor Unassigned, No Un iversity of [place] DIAGNOSIS AND Name Medical Branch TREATMENT CONSENT/REFUSAL FOR 2022-06-20 15:17:54 Doctor Unassigned, No Un [facility] [place] DIAGNOSIS AND Name Medical Branch TREATMENT NOTICE OF PRIVACY 2022-01-16 16:36:22 [facility], [facility] CONSENT/REFUSAL FOR 2022-01-16 16:36:08 Doctor Unassigned, No Un [facility] [place] DIAGNOSIS AND Name Medical Branch TREATMENT Encounters Start End Encounter Admission Attending Care Care Encounter Source Date/Time Date/Time Type Type Clinicians Facility Department ID 2022-07-20 2022-07-20 Emergency X Roya TODD [facility] ERT [id number] Univers 18:55:00 23:33:00 ity of [facility] 2022-07-20 2022-07-20 Emergency Roya Todd [facility] [id number] Univers 18:55:00 23:33:00 Kristel CRUZ 350.1.13.10 i ty of [place] 4.2.7.2.686 [facility] [id number] [address] 2022-06-20 2022-06-20 Emergency X Roya TODD [facility] ERT [id number] Univers 10:47:00 14:17:00 ity of [facility] 2022-06-20 2022-06-20 Emergency Roya Todd [facility] 1.2.840.114 [id number] Univers 10:47:00 14:17:00 Kristel CRUZ 350.1.13.10 i ty of [place] 4.2.7.2.686 [facility] [id number] [address] 2022-01-16 2022-01-16 Emergency X Roya TODD [facility] ERT [id number] Univers 11:53:00 14:24:00 ity of [facility] 2022-01-16 2022-01-16 Emergency Roya Todd [facility] 1.2.840.114 [id number] Univers 11:53:00 14:24:00 Kristel CRUZ 350.1.13.10 i ty of [place] 4.2.7.2.6 [facility] [id number] [address] 2022-01-16 2022-01-16 Orders Doctor LEANNA [id number] Univers 00:00:00 00:00:00 Only Unassigned, ALEX 350.1.13.10 ity of [place] [facility] 4.2.7.2.686 [facility] [id number] [place] [address] Branch 2021-12-06 2021-12-06 Case Juan JKINGSLEY 1.2.840.114 [id number] Univers 00:00:00 00:00:00 Management Siobhan R [place] 350.1.13.10 ity [place] [id number] [facility] 086 [place] 2021-09-21 2021-09-21 Office Pgy3 UNIVERSIT [id number] Univers 14:15:00 14:15:00 Visit Natalie Bess [facility] 350.1.13. 10 ity of [facility] 4.2.7.2.686 [place] [id number] [facility] 113 Branch 2021-09-21 2021-09-21 Outpatient R [facility] [id number] Univers 14:15:00 14:11:32 NATALIE ity [facility] 2021-09-21 2021-09-21 Orders Doctor LEANNA 1.2.840.114 [id number] Univers 00:00:00 00:00:00 Only Unassigned, ALEX 350.1.13.10 ity of [place] [facility] 4.2.7.2.686 Afshin as [id number] [facility] 009 [place] 2021-09-03 2021-09-03 Emergency X [facility] ERT [id number] Univers 18:27:00 21:05:00 TWILA ity [facility] 2021-09-03 2021-09-03 Emergency [facility] 1.2.840.114 [id number] Univers 18:27:00 21:05:00 Twila CRUZ 350.1.13.10 ity of [place]2.[place] [id number] [facility] 084 [place] 2021-09-02 2021-09-02 Nurse Mary Kiser 1.2.840.114 [id number] Univers 00:00:00 00:00:00 Triage ALEX 350.1.13.10 it y of [facility] 4.2.7.2.686 Afshin as [id number] [facility] 019 Branch 2021-08-30 2021-08-30 Orders Doctor RAM 1.2.840.114 [id number] Univers 00:00:00 00:00:00 Only Unassigned, ALEX 350.1.13.10 ity of [place] [facility] 4.2.7.2.686 Afshin as [id number] [facility] 009 Branch 2021-08-29 2021-08-29 Transition KINGSLEY [facility] 1.2.840.114 [id number] Univers 00:00:00 00:00:00 of Care Eli [place] 350.1.13.10 i ty of [place] [id number] [facility] 403 Branch 2021-08-27 2021-08-27 Inpatient X [facility] OBW [id number] Univers 08:43:00 13:58:00 ity of [facility] 2021-08-27 2021-08-27 Hospital LOU Myles [id number] Univers 08:43:00 13:58:00 Encounter Jazmyne Becerra ALEX 350.1.13.10 ity of [facility] 4.2.7.2.686 Afshin as [id number] [facility] 104 Branch 2021-08-27 2021-08-27 Surgery LOU Myles 1.2.840.114 [id number] Univers 09:00:00 10:26:00 Jazmyne VENTURAY 350.1.13.10 it y of [facility] 4.2.7.2.686 Afshin as [id number] [facility] 103 Branch 2021-08-27 2021-08-27 Emergency X ABBEY, [facility] ERT [id number] Univers 06:46:00 08:25:00 GUTIERREZ ity of [facility] 2021-08-27 2021-08-27 Emergency [facility], [facility] [id number] Univers 06:46:00 08:25:00 Gutierrez ANTHONY 350.1.13.10 i ty [place]2.[place] [id number] [facility] 084 Branch 2021-08-27 2021-08-27 Emergency X [facility] ERT [id number] Univers 06:46:00 08:25:00 ity of [facility] 2021-07-27 2021-07-27 Emergency X KIRILL JAVED [facility] ERT [id number] Univers 00:57:00 02:21:00 ity of [facility] 2021-07-27 2021-07-27 Emergency Kirill Javed [facility] 1.2.840.114 [id number] Univers 00:57:00 02:21:00 T Anthony 350.1.13.10 i ty of [place] 4.2.7.2.686 [facility] [id number] [place] [address]444 [place] 2021-07-04 2021-07-04 [facility] [id number] Univers 17:58:00 20:45:00 Ann Marie S Taylor 350.1.13.10 i ty of [place] 4.2.7.2.686 [facility] [id number] [address] 2021-07-04 2021-07-04 Emergency X [facility] ERT [id number] Univers 17:52:00 17:52:00 ity [facility] 2021-07-04 2021-07-04 Orders Doctor LEANNA 1.2.840.114 [id number] Univers 00:00:00 00:00:00 Only Unassigned, ALEX 350.1.13.10 ity of [place] [facility] 4.2.7.2.686 [facility] [id number] [place] [address] Branch 2021-05-03 2021-05-03 Emergency [facility] [id number] Univers 01:50:00 01:50:00 VERNA lawrence [facility] 2020-07-31 2020-07-31 Emergency [facility] [id number] 01:53:00 04:10:00 [place] 350.1.13.10 [place] 4.2.7.2.686 [place] [id number] [facility] 2020-07-31 2020-07-31 Emergency X [facility] ERT [id number] Univers 01:48:00 01:48:00 LA lawrence [facility] 2020-03-17 2020-03-17 Emergency [facility] [id number] 08:47:37 10:04:00 Anthony 350.1.13.10 [place] 4.2.7.2.686 [place] [id number] 084 2020-03-17 2020-03-17 Emergency X [facility] ERT [id number] Univers 08:32:00 08:32:00 itlinn [facility] 2019-11-29 2019-11-29 Emergency X SHERLY [facility] ERT [id number] Univers 12:21:58 14:07:00 MK lawrence [facility] 2019-11-29 2019-11-29 [facility] [id number] 12:21:58 14:07:00 Mk [place] 350.1.13.10 [place] 4.2.7.2.686 [place] [address] [id number] 084 2019-10-21 2019-10-21 [facility] [id number] Memoria 21:00:43 23:54:00 r [place] 00 l [facility] 2019-10-21 2019-10-21 [facility] [id number] Memoria 21:00:43 23:54:00 r [place] 00 l [facility] 2019-10-21 2019-10-21 Outpatient [place], 2.16.840. 2.16.840.1. 4 [id number] 15:00:43 17:54:00 Neha Bonner [id number] 2019-10-21 2019-10-21 Emergency E [...] 32.1 g/dL 31.6-35.1 RDW-SD (test code = 45120-0) 42.4 fL 39-49.9 RDW-CV (test code = 788-0) 14.5 % 12-15.5 PLT (test code = 777-3) See_Comment L [Au tomated message] The system which [employer] nerated this result transmit [place] reference range: 166 - 35 8 10*3/?L. The reference range was not used to interpret th is result as normal/abnormal . MPV (test code = 08816-1) 12.6 fL 9.5-12.9 IPF % (test code = 17.2 % 1.3-7.7 H Platelet count measured by 5737918529) fluorescence me thod. NRBC/100 WBC (test code = See_Comment [ Automated message] The 3204979458) system which [employer] nerated this result transmit [place] reference range: 0.0 - 10 .0 /100 WBCs. The reference r denisha was not used to interpr et this result as normal/abnor mal. NRBC x10^3 (test code = See_Comment [Au tomated message] The 8749288633) system which [employer] nerated this result transmit [place] reference range: 10*3/?L. The reference range was not u sed to interpret this result as normal/abnormal . GRAN MAT (NEUT) % (test code 86.2 % = 770-8) IMM GRAN % (test code = 0.40 % 5791970963) LYMPH % (test code = 736-9) 7.0 % MONO % (test code = 5905-5) 5.1 % EOS % (test code = 713-8) 1.1 % BASO % (test code = 706-2) 0.2 % GRAN MAT x10^3(ANC) (test 7.11 10*3/uL 1.88-7.09 H code = 7803725541) IMM GRAN x10^3 (test code = 0.03 10*3/uL 0-0.06 6793048901) LYMPH x10^3 (test code = 0.58 10*3/uL 1.32-3.29 L 731-0) MONO x10^3 (test code = 0.42 10*3/uL 0.33-0.92 742-7) EOS x10^3 (test code = 0.09 10*3/uL 0.03-0.39 711-2) BASO x10^3 (test code = 0.01-0.07 704-7) Lab Interpretation (test Abnormal code = 48781-1) [facility]29 Test Item Value Reference Range Interpretation Comments MAGNESIUM (test code = 5114976376) 1.8 mg/dL 1.7-2.4 Lab Interpretation (test code = Normal 27295-8) [facility] (00939)2022-07-21 00:42:08 Test Item Value Reference Range Interpretation Comments NA (test code = 141 mmol/L 135-145 4059483764) K (test code = 3.9 mmol/L 3.5-5 5095405492) CL (test code = 103 mmol/L 98-108 0537833053) CO2 TOTAL (test code 25 mmol/L 23-31 = 2168670832) AGAP (test code = 2-16 3074470359) BUN (test code = 19 mg/dL 7-23 9246805284) GLUCOSE (test code = 98 mg/dL 70-110 5932662978) CREATININE (test code 0.83 mg/dL 0.5-1.04 = 5152982018) TOTAL BILI (test code 0.9 mg/dL 0.1-1.1 = 2082789049) CALCIUM (test code = 9.1 mg/dL 8.6-10.6 1228265790) T PROTEIN (test code 7.0 g/dL 6.3-8.2 = 6239757802) ALBUMIN (test code = 4.4 g/dL 3.5-5 9496043382) ALK PHOS (test code = 72 U/L 34-122 2725811018) ALTv (test code = 20 U/L 5-35 2-6) AST(SGOT) (test code 22 U/L 13-40 = 2272963236) eGFR (test code = mL/min/1.73m2 7881439466) VIN (test code = VIN) Association of [...] or urine or abnormalities in imaging tests). [facility]08 Test Item Value Reference Range Interpretation Comments LIPASE (test code = 2207601732) 50 U/L 0-220 Lab Interpretation (test code = Normal 72053-9) [facility] [id number] 00:14:00 Test Item Value Reference Range Interpretation Comments POCT PREG (test code = 1605) negative Lab Interpretation (test code = Normal 91643-5) [facility] [id number] 22:52:00 Test Item Value Reference Range Interpretation Comments Source APTIMA (test Urine *NA*(10/21/19 code = Source APTIMA) 4:52 PM) [facility] [id number] 22:52:00 Test Item Value Reference Range Interpretation Comments C trachomatis by Amp Det Negative *NA*(10/21/19 (APTIMA) (test code = C 4:52 PM) trachomatis by Amp Det (APTIMA)) [facility] [id number] 22:52:00 Test Item Value Reference Range Interpretation Comments N gonorrhea by Amp Det Negative *NA*(10/21/19 (APTIMA) (test code = N 4:52 PM) gonorrhea by Amp Det (APTIMA)) [facility] [id number] 22:52:00 Test Item Value Reference Range Interpretation Comments C trachomatis by Amp Det Negative *NA*(10/21/19 (APTIMA) (test code = C 4:52 PM) trachomatis by Amp Det (APTIMA)) [facility] [id number] 22:52:00 Test Item Value Reference Range Interpretation Comments N gonorrhea by Amp Det Negative *NA*(10/21/19 (APTIMA) (test code = N 4:52 PM) gonorrhea by Amp Det (APTIMA)) [facility] [id number] 22:52:00 Test Item Value Reference Range Interpretation Comments Source APTIMA (test Urine *NA*(10/21/19 code = Source APTIMA) 4:52 PM) [facility] [id number] 22:52:00 Test Item Value Reference Range Interpretation Comments Source APTIMA (test Urine *NA*(10/21/19 code = Source APTIMA) 4:52 PM) [facility] [id number] 22:52:00 Test Item Value Reference Range Interpretation Comments C trachomatis by Amp Det Negative *NA*(10/21/19 (APTIMA) (test code = C 4:52 PM) trachomatis by Amp Det (APTIMA)) [facility] [id number] 22:52:00 Test Item Value Reference Range Interpretation Comments N gonorrhea by Amp Det Negative *NA*(10/21/19 (APTIMA) (test code = N 4:52 PM) gonorrhea by Amp Det (APTIMA)) [facility] [id number] 22:04:00 Test Item Value Reference Range Interpretation Comments UA Protein (test code Negative (10/21/19 4:04 = UA Protein) PM) [facility] [id number] 22:04:00 Test Item Value Reference Range Interpretation Comments UA Glucose (test code Negative (10/21/19 4:04 = UA Glucose) PM) [facility] [id number] 22:04:00 Test Item Value Reference Range Interpretation Comments UA Ketones (test code Negative *NA*(10/21/19 = UA Ketones) 4:04 PM) [facility] [id number] 22:04:00 Test Item Value Reference Range Interpretation Comments UA Bili (test code = Negative *NA*(10/21/19 UA Bili) 4:04 PM) [facility] [id number] 22:04:00 Test Item Value Reference Range Interpretation Comments UA Blood (test code = Negative (10/21/19 4:04 UA Blood) PM) [facility] [id number] 22:04:00 Test Item Value Reference Range Interpretation Comments UA Urobilinogen (test code = UA 0.2 0.1-1.0 Urobilinogen) [facility] [id number] 22:04:00 Test Item Value Reference Range Interpretation Comments UA Nitrite (test code Negative (10/21/19 4:04 = UA Nitrite) PM) [facility] [id number] 22:04:00 Test Item Value Reference Range Interpretation Comments UA Leuk Est (test Negative (10/21/19 4:04 code = UA Leuk Est) PM) [facility] [id number] 22:04:00 Test Item Value Reference Range Interpretation Comments UA Sq Epi (test code = UA Sq Epi) Few /LPF [facility] [id number] 22:04:00 Test Item Value Reference Range Interpretation Comments UA WBC (test code = UA WBC) 3-5 /HPF [facility] [id number] 22:04:00 Test Item Value Reference Range Interpretation Comments UA RBC (test code = 0-2 /HPF See_Comment [Automa florence message] The UA RBC) system which ge nerated this result tra nsmitted reference range : <=2. The reference range was not used to interpr et this result as teena l/abnormal. [facility] [id number] 22:04:00 Test Item Value Reference Range Interpretation Comments UA Bacteria (test code = UA Occasional /HPF Bacteria) [facility] [id number] 22:04:00 Test Item Value Reference Range Interpretation Comments UA Mucus (test code = UA Mucus) Few /LPF [facility] [id number] 22:04:00 Test Item Value Reference Range Interpretation Comments U Amph Scr (test code Negative *NA*(10/21/19 = U Amph Scr) 4:04 PM) [facility] [id number] 22:04:00 Test Item Value Reference Range Interpretation Comments U Cira Scr (test code Negative *NA*(10/21/19 = U Cira Scr) 4:04 PM) [facility] [id number] 22:04:00 Test Item Value Reference Range Interpretation Comments U Benzodiaz Scr (test Positive *ABN*(10/21/19 code = U Benzodiaz Scr) 4:04 PM) [facility] [id number] 22:04:00 Test Item Value Reference Range Interpretation Comments U Cocaine Scr (test Negative *NA*(10/21/19 code = U Cocaine Scr) 4:04 PM) [facility] [id number] 22:04:00 Test Item Value Reference Range Interpretation Comments U Cannab Scr (test Negative *NA*(10/21/19 code = U Cannab Scr) 4:04 PM) [facility] [id number] 22:04:00 Test Item Value Reference Range Interpretation Comments U Opiate Scr (test Negative *NA*(10/21/19 code = U Opiate Scr) 4:04 PM) [facility] [id number] 22:04:00 Test Item Value Reference Range Interpretation Comments U Phencyclidine Scr (test Negative code = U Phencyclidine *NA*(10/21/19 4:04 Scr) PM) [facility] [id number] 22:04:00 Test Item Value Reference Range Interpretation Comments UDS Note (test code = See Note (10/21/19 4:04 UDS Note) PM) [facility] [id number] 22:04:00 Test Item Value Reference Range Interpretation Comments UA Color (test code = Yellow *NA*(10/21/19 UA Color) 4:04 PM) [facility] [id number] 22:04:00 Test Item Value Reference Range Interpretation Comments UA Turbidity (test code = Clear (10/21/19 4:04 UA Turbidity) PM) [facility] [id number] 22:04:00 Test Item Value Reference Range Interpretation Comments UA Spec Grav (test code = UA Spec 1.020 1 Grav) [facility] [id number] 22:04:00 Test Item Value Reference Range Interpretation Comments UA pH (test code = UA pH) 5.5 1 5.0-8.0 [facility] [id number] 22:04:00 Test Item Value Reference Range Interpretation Comments UA Protein (test code Negative (10/21/19 4:04 = UA Protein) PM) [facility] [id number] 22:04:00 Test Item Value Reference Range Interpretation Comments UA Glucose (test code Negative (10/21/19 4:04 = UA Glucose) PM) [facility] [id number] 22:04:00 Test Item Value Reference Range Interpretation Comments UA Ketones (test code Negative *NA*(10/21/19 = UA Ketones) 4:04 PM) [facility] [id number] 22:04:00 Test Item Value Reference Range Interpretation Comments UA Bili (test code = Negative *NA*(10/21/19 UA Bili) 4:04 PM) [facility] [id number] 22:04:00 Test Item Value Reference Range Interpretation Comments UA Blood (test code = Negative (10/21/19 4:04 UA Blood) PM) [facility] [id number] 22:04:00 Test Item Value Reference Range Interpretation Comments UA Urobilinogen (test code = UA 0.2 0.1-1.0 Urobilinogen) [facility] [id number] 22:04:00 Test Item Value Reference Range Interpretation Comments UA Nitrite (test code Negative (10/21/19 4:04 = UA Nitrite) PM) [facility] [id number] 22:04:00 Test Item Value Reference Range Interpretation Comments UA Leuk Est (test Negative (10/21/19 4:04 code = UA Leuk Est) PM) [facility] [id number] 22:04:00 Test Item Value Reference Range Interpretation Comments UA Sq Epi (test code = UA Sq Epi) Few /LPF [facility] [id number] 22:04:00 Test Item Value Reference Range Interpretation Comments UA WBC (test code = UA WBC) 3-5 /HPF [facility] [id number] 22:04:00 Test Item Value Reference Range Interpretation Comments UA RBC (test code = 0-2 /HPF See_Comment [Automa fl[place] message] The UA RBC) system which ge nerated this result tra nsmitted reference range : <=2. The reference range was not used to interpr et this result as teena l/abnormal. [facility] [id number] 22:04:00 Test Item Value Reference Range Interpretation Comments UA Bacteria (test code = UA Occasional /HPF Bacteria) [facility] [id number] 22:04:00 Test Item Value Reference Range Interpretation Comments UA Mucus (test code = UA Mucus) Few /LPF [facility] [id number] 22:04:00 Test Item Value Reference Range Interpretation Comments U Amph Scr (test code Negative *NA*(10/21/19 = U Amph Scr) 4:04 PM) [facility] [id number] 22:04:00 Test Item Value Reference Range Interpretation Comments U Cira Scr (test code Negative *NA*(10/21/19 = U Cira Scr) 4:04 PM) [facility] [id number] 22:04:00 Test Item Value Reference Range Interpretation Comments U Benzodiaz Scr (test Positive *ABN*(10/21/19 code = U Benzodiaz Scr) 4:04 PM) [facility] [id number] 22:04:00 Test Item Value Reference Range Interpretation Comments U Cocaine Scr (test Negative *NA*(10/21/19 code = U Cocaine Scr) 4:04 PM) [facility] [id number] 22:04:00 Test Item Value Reference Range Interpretation Comments U Cannab Scr (test Negative *NA*(10/21/19 code = U Cannab Scr) 4:04 PM) [facility] [id number] 22:04:00 Test Item Value Reference Range Interpretation Comments U Opiate Scr (test Negative *NA*(10/21/19 code = U Opiate Scr) 4:04 PM) [facility] [id number] 22:04:00 Test Item Value Reference Range Interpretation Comments U Phencyclidine Scr (test Negative code = U Phencyclidine *NA*(10/21/19 4:04 Scr) PM) [facility] [id number] 22:04:00 Test Item Value Reference Range Interpretation Comments UDS Note (test code = See Note (10/21/19 4:04 UDS Note) PM) [facility] [id number] 22:04:00 Test Item Value Reference Range Interpretation Comments UA Color (test code = Yellow *NA*(10/21/19 UA Color) 4:04 PM) [facility] [id number] 22:04:00 Test Item Value Reference Range Interpretation Comments UA Turbidity (test code = Clear (10/21/19 4:04 UA Turbidity) PM) [facility] [id number] 22:04:00 Test Item Value Reference Range Interpretation Comments UA Spec Grav (test code = UA Spec 1.020 1 Grav) [facility] [id number] 22:04:00 Test Item Value Reference Range Interpretation Comments UA pH (test code = UA pH) 5.5 1 5.0-8.0 [facility] [id number] 22:04:00 Test Item Value Reference Range Interpretation Comments UA Protein (test code Negative (10/21/19 4:04 = UA Protein) PM) [facility] [id number] 22:04:00 Test Item Value Reference Range Interpretation Comments UA Glucose (test code Negative (10/21/19 4:04 = UA Glucose) PM) [facility] [id number] 22:04:00 Test Item Value Reference Range Interpretation Comments UA Ketones (test code Negative *NA*(10/21/19 = UA Ketones) 4:04 PM) [facility] [id number] 22:04:00 Test Item Value Reference Range Interpretation Comments UA Bili (test code = Negative *NA*(10/21/19 UA Bili) 4:04 PM) [facility] [id number] 22:04:00 Test Item Value Reference Range Interpretation Comments UA Blood (test code = Negative (10/21/19 4:04 UA Blood) PM) [facility] [id number] 22:04:00 Test Item Value Reference Range Interpretation Comments UA Urobilinogen (test code = UA 0.2 0.1-1.0 Urobilinogen) [facility] [id number] 22:04:00 Test Item Value Reference Range Interpretation Comments UA Nitrite (test code Negative (10/21/19 4:04 = UA Nitrite) PM) [facility] [id number] 22:04:00 Test Item Value Reference Range Interpretation Comments UA Leuk Est (test Negative (10/21/19 4:04 code = UA Leuk Est) PM) [facility] [id number] 22:04:00 Test Item Value Reference Range Interpretation Comments UA Sq Epi (test code = UA Sq Epi) Few /LPF [facility] [id number] 22:04:00 Test Item Value Reference Range Interpretation Comments UA WBC (test code = UA WBC) 3-5 /HPF [facility] [id number] 22:04:00 Test Item Value Reference Range Interpretation Comments UA RBC (test code = 0-2 /HPF See_Comment [Automa [place] message] The UA RBC) system which ge nerated this result tra nsmitted reference range : <=2. The reference range was not used to interpr et this result as teena l/abnormal. [facility] [id number] 22:04:00 Test Item Value Reference Range Interpretation Comments UA Bacteria (test code = UA Occasional /HPF Bacteria) [facility] [id number] 22:04:00 Test Item Value Reference Range Interpretation Comments UA Mucus (test code = UA Mucus) Few /LPF [facility] [id number] 22:04:00 Test Item Value Reference Range Interpretation Comments U Amph Scr (test code Negative *NA*(10/21/19 = U Amph Scr) 4:04 PM) [facility] [id number] 22:04:00 Test Item Value Reference Range Interpretation Comments U Cira Scr (test code Negative *NA*(10/21/19 = U Cira Scr) 4:04 PM) [facility] [id number] 22:04:00 Test Item Value Reference Range Interpretation Comments U Benzodiaz Scr (test Positive *ABN*(10/21/19 code = U Benzodiaz Scr) 4:04 PM) [facility] [id number] 22:04:00 Test Item Value Reference Range Interpretation Comments U Cocaine Scr (test Negative *NA*(10/21/19 code = U Cocaine Scr) 4:04 PM) [facility] [id number] 22:04:00 Test Item Value Reference Range Interpretation Comments U Cannab Scr (test Negative *NA*(10/21/19 code = U Cannab Scr) 4:04 PM) [facility] [id number] 22:04:00 Test Item Value Reference Range Interpretation Comments U Opiate Scr (test Negative *NA*(10/21/19 code = U Opiate Scr) 4:04 PM) [facility] [id number] 22:04:00 Test Item Value Reference Range Interpretation Comments U Phencyclidine Scr (test Negative code = U Phencyclidine *NA*(10/21/19 4:04 Scr) PM) [facility] [id number] 22:04:00 Test Item Value Reference Range Interpretation Comments UDS Note (test code = See Note (10/21/19 4:04 UDS Note) PM) [facility] [id number] 22:04:00 Test Item Value Reference Range Interpretation Comments UA Color (test code = Yellow *NA*(10/21/19 UA Color) 4:04 PM) [facility] [id number] 22:04:00 Test Item Value Reference Range Interpretation Comments UA Turbidity (test code = Clear (10/21/19 4:04 UA Turbidity) PM) [facility] AND [id number] 22:04:00 Test Item Value Reference Range Interpretation Comments UA Spec Grav (test code = UA Spec 1.020 1 Grav) [facility] [id number] 22:04:00 Test Item Value Reference Range Interpretation Comments UA pH (test code = UA pH) 5.5 1 5.0-8.0 [facility] CenterDossierViewCARDIAC [id number] 21:29:00 Test Item Value Reference Range Interpretation Comments Total CK (test code = Total CK) 72 12-191 [facility] CenterDossierViewCARVenture [employer] [id number] 21:29:00 Test Item Value Reference Range Interpretation Comments Troponin-I (test code no gt See_Comment [Auto mated message] The = Troponin-I) system which g enerated this result transmit [place] reference range : <=0.40. The reference r denisha was not used to interpr et this result as teena l/abnormal. [facility] [id number] 21:29:00 Test Item Value Reference Range Interpretation Comments Glucose Lvl (test code = Glucose Lvl) 85 70-99 [facility] [id number] 21:29:00 Test Item Value Reference Range Interpretation Comments BUN (test code = BUN) 13 7-22 [facility] CenterCybe[facility] [id number] 21:29:00 Test Item Value Reference Range Interpretation Comments Creatinine Lvl (test code = Creatinine 0.80 0.50-1.40 Lvl) [facility] [id number] 21:29:00 Test Item Value Reference Range Interpretation Comments Sodium Lvl (test code = Sodium Lvl) 137 135-145 [facility] [id number] 21:29:00 Test Item Value Reference Range Interpretation Comments Potassium Lvl (test code = Potassium 3.8 3.5-5.1 Lvl) [facility] [id number] 21:29:00 Test Item Value Reference Range Interpretation Comments Chloride Lvl (test code = Chloride Lvl) 109 95-109 [facility] [id number] 21:29:00 Test Item Value Reference Range Interpretation Comments CO2 (test code = CO2) 27 24-32 [facility] [id number] 21:29:00 Test Item Value Reference Range Interpretation Comments Calcium Lvl (test code = Calcium Lvl) 8.5 8.5-10.5 [facility] [id number] 21:29:00 Test Item Value Reference Range Interpretation Comments Total Protein (test code = Total 6.6 6.4-8.4 Protein) [facility] [id number] 21:29:00 Test Item Value Reference Range Interpretation Comments Albumin Lvl (test code = Albumin Lvl) 3.5 3.5-5.0 [facility] [id number] 21:29:00 Test Item Value Reference Range Interpretation Comments ALANINE AMINOTRANSFERASE 20 See_Comment [A utomated message] (test code = ALANINE The sys tem which AMINOTRANSFERASE) generated this result transmitted ref erence range: <=65. Th e reference range was not used to int erpret this result as normal/abnormal . [facility] [id number] 21:29:00 Test Item Value Reference Range Interpretation Comments ASPARTATE TRANSAMINASE 17 See_Comment [Aut omated message] (test code = ASPARTATE The s ystem which TRANSAMINASE) generated this result transmitted ref erence range: <=37. Th e reference range was not used to interpr et this result as normal/abnormal . [facility] [id number] 21:29:00 Test Item Value Reference Range Interpretation Comments Alk Phos (test code = Alk Phos) 73 43-86 [facility] [id number] 21:29:00 Test Item Value Reference Range Interpretation Comments Bili Total (test code = Bili Total) 0.3 0.2-1.3 [facility] [id number] 21:29:00 Test Item Value Reference Range Interpretation Comments AGAP (test code = AGAP) 4.8 10.0-20.0 [facility] [id number] 21:29:00 Test Item Value Reference Range Interpretation Comments B/C Ratio (test code = B/C Ratio) 16 1 6-25 [facility] [id number] 21:29:00 Test Item Value Reference Range Interpretation Comments Globulin (test code = Globulin) 3.1 2.7-4.2 [facility] [id number] 21:29:00 Test Item Value Reference Range Interpretation Comments A/G Ratio (test code = A/G Ratio) 1.1 1 0.7-1.6 [facility] [id number] 21:29:00 Test Item Value Reference Range Interpretation Comments eGFR (test code = eGFR) [facility] CenterMbozczuUZYQZCQGSEZPV5727-28-41 21:29:00 Test Item Value Reference Range Interpretation Comments S Preg (test code = S Negative *NA*(10/21/19 Preg) 3:29 PM) [id number] 21:29:00 Test Item Value Reference Range Interpretation Comments WBC X 10x3 (test code = WBC X 10x3) 6.8 3.7-10.4 [facility] HospitalAnepxqfVUKUDKDBLE2167-27-58 21:29:00 Test Item Value Reference Range Interpretation Comments RBC X 10x6 (test code = RBC X 10x6) 4.73 4.20-5.40 [facility] H[id number] 21:29:00 Test Item Value Reference Range Interpretation Comments Hgb (test code = Hgb) 12.2 12.0-16.0 [facility] Ho[id number] 21:29:00 Test Item Value Reference Range Interpretation Comments Hct (test code = Hct) 36.8 36.0-48.0 [facility] H[id number] 21:29:00 Test Item Value Reference Range Interpretation Comments MCV (test code = MCV) 77.7 80.0-98.0 [facility] Hospit[id number] 21:29:00 Test Item Value Reference Range Interpretation Comments MCH (test code = MCH) 25.8 pg 27.0-31.0 [facility]villeAcxtgpzPRKNWZTMIC4762-54-14 21:29:00 Test Item Value Reference Range Interpretation Comments MCHC (test code = MCHC) 33.1 32.0-36.0 [facility] Hos[id number] 21:29:00 Test Item Value Reference Range Interpretation Comments RDW (test code = RDW) 16.6 11.5-14.5 [facility] HospitalCmwckzcIWZYNIKVKJ1454-98-78 21:29:00 Test Item Value Reference Range Interpretation Comments Platelet (test code = Platelet) 101 133-450 [place] [id number] 21:29:00 Test Item Value Reference Range Interpretation Comments MPV (test code = MPV) 10.8 7.4-10.4 [place] [id number] 21:29:00 Test Item Value Reference Range Interpretation Comments Segs (test code = Segs) 63.9 45.0-75.0 [place] [id number] 21:29:00 Test Item Value Reference Range Interpretation Comments Lymphocytes (test code = Lymphocytes) 23.2 20.0-40.0 [place] [id number] 21:29:00 Test Item Value Reference Range Interpretation Comments Monocytes (test code = Monocytes) 8.0 2.0-12.0 [place] [id number] 21:29:00 Test Item Value Reference Range Interpretation Comments Eosinophils (test code = 4.5 See_Comment [A utomated message] The Eosinophils) system which ge nerated this result tra nsmitted reference range : <=4.0. The reference r denisha was not used to int erpret this result as normal/abnormal . [id number] 21:29:00 Test Item Value Reference Range Interpretation Comments Basophils (test code = 0.4 See_Comment [Aut omated message] The Basophils) system which ge nerated this result tra nsmitted reference range : <=1.0. The reference r denisha was not used to int erpret this result as normal/abnormal . [facility] Shor[id number] 21:29:00 Test Item Value Reference Range Interpretation Comments Neutrophils # (test code = Neutrophils 4.3 1.5-8.1 #) [facility] ShorelineHmcxbvmTIHFHVVYVQ3794-90-14 21:29:00 Test Item Value Reference Range Interpretation Comments Lymphocytes # (test code = Lymphocytes 1.6 1.0-5.5 #) [place] [id number] 21:29:00 Test Item Value Reference Range Interpretation Comments Monocytes # (test code 0.5 See_Comment [Aut omated message] The = Monocytes #) system which generated this result tra nsmitted reference range : <=0.8. The reference r denisha was not used to int erpret this result as normal/abnormal . [place] [id number] 21:29:00 Test Item Value Reference Range Interpretation Comments Eosinophils # (test code 0.3 See_Comment [A utomated message] The = Eosinophils #) system whic h generated this result tra nsmitted reference range : <=0.5. The reference r denisha was not used to int erpret this result as normal/abnormal . [facility] CenterXvnthfeLQBKPUMCCR6658-20-97 21:29:00 Test Item Value Reference Range Interpretation Comments Microcyte (test code = 1+ *ABN*(10/21/19 Microcyte) 3:29 PM) [facility] GreenvilleBralbaiXWPOFTYSZT9453-45-77 21:29:00 Test Item Value Reference Range Interpretation Comments Ethanol Lvl (test code = Ethanol Lvl) no gt [facility] GreenvilleEdzfqukZYBIGTOOJW8707-85-65 21:29:00 Test Item Value Reference Range Interpretation Comments Etoh (%) (test code = Etoh (%)) no gt [facility] CenterResourceKraftAC [id number] 21:29:00 Test Item Value Reference Range Interpretation Comments Total CK (test code = Total CK) 72 12-191 [facility] CenterJaman [id number] 21:29:00 Test Item Value Reference Range Interpretation Comments Troponin-I (test code no gt See_Comment [Auto mated message] The = Troponin-I) system which g enerated this result transmit [place] reference range : <=0.40. The reference r denisha was not used to interpr et this result as teena l/abnormal. [facility] [id number] 21:29:00 Test Item Value Reference Range Interpretation Comments Glucose Lvl (test code = Glucose Lvl) 85 70-99 [facility] CenterDossierViewCARSTATS Group [id number] 21:29:00 Test Item Value Reference Range Interpretation Comments Total CK (test code = Total CK) 72 12-191 [facility] [id number] [id number] 21:29:00 Test Item Value Reference Range Interpretation Comments Troponin-I (test code no gt See_Comment [Auto mated message] The = Troponin-I) system which g enerated this result transmit florence reference range : <=0.40. The reference r denisha was not used to interpr et this result as teena l/abnormal. [facility] [employer]2020-01-15 21:29:00 Test Item Value Reference Range Interpretation Comments Glucose Lvl (test code = Glucose Lvl) 85 70-99 [facility]2020-01-15 21:29:00 Test Item Value Reference Range Interpretation Comments BUN (test code = BUN) 13 04-27 [place] [id number] 21:29:00 Test Item Value Reference Range Interpretation Comments Creatinine Lvl (test code = Creatinine 0.80 0.50-1.40 Lvl) [facility]2020-01-15 21:29:00 Test Item Value Reference Range Interpretation Comments BUN (test code = BUN) 13 04-27 [facility]2020-01-15 21:29:00 Test Item Value Reference Range Interpretation Comments Sodium Lvl (test code = Sodium Lvl) 137 135-145 [facility]2020-01-15 21:29:00 Test Item Value Reference Range Interpretation Comments Potassium Lvl (test code = Potassium 3.8 3.5-5.1 Lvl) [facility]2020-01-15 21:29:00 Test Item Value Reference Range Interpretation Comments Chloride Lvl (test code = Chloride Lvl) 109 95-109 [facility]2020-01-15 21:29:00 Test Item Value Reference Range Interpretation Comments CO2 (test code = CO2) 27 24-32 [facility]2020-01-15 21:29:00 Test Item Value Reference Range Interpretation Comments Calcium Lvl (test code = Calcium Lvl) 8.5 8.5-10.5 [facility]2020-01-15 21:29:00 Test Item Value Reference Range Interpretation Comments Total Protein (test code = Total 6.6 6.4-8.4 Protein) [facility]2020-01-15 21:29:00 Test Item Value Reference Range Interpretation Comments Albumin Lvl (test code = Albumin Lvl) 3.5 3.5-5.0 [place] [id number] 21:29:00 Test Item Value Reference Range Interpretation Comments ALANINE AMINOTRANSFERASE 20 See_Comment [A utomated message] (test code = ALANINE The sys tem which AMINOTRANSFERASE) generated this result transmitted ref erence range: <=65. Th e reference range was not used to int erpret this result as normal/abnormal . [facility] [id number] 21:29:00 Test Item Value Reference Range Interpretation Comments ASPARTATE TRANSAMINASE 17 See_Comment [Aut omated message] (test code = ASPARTATE The s ystem which TRANSAMINASE) generated this result transmitted ref erence range: <=37. Th e reference range was not used to interpr et this result as normal/abnormal . [facility] [id number] 21:29:00 Test Item Value Reference Range Interpretation Comments Alk Phos (test code = Alk Phos) 73 43-86 [facility] [id number] 21:29:00 Test Item Value Reference Range Interpretation Comments Creatinine Lvl (test code = Creatinine 0.80 0.50-1.40 Lvl) [facility] [id number] 21:29:00 Test Item Value Reference Range Interpretation Comments Bili Total (test code = Bili Total) 0.3 0.2-1.3 [facility] [id number] 21:29:00 Test Item Value Reference Range Interpretation Comments AGAP (test code = AGAP) 4.8 10.0-20.0 [facility] [id number] 21:29:00 Test Item Value Reference Range Interpretation Comments B/C Ratio (test code = B/C Ratio) 16 1 6-25 [facility] [id number] 21:29:00 Test Item Value Reference Range Interpretation Comments Globulin (test code = Globulin) 3.1 2.7-4.2 [facility] [id number] 21:29:00 Test Item Value Reference Range Interpretation Comments A/G Ratio (test code = A/G Ratio) 1.1 1 0.7-1.6 [facility] [id number] 21:29:00 Test Item Value Reference Range Interpretation Comments eGFR (test code = eGFR) 108 [facility] GreenvilleWaaszayMWNCUVVJJXSLH2551-30-24 21:29:00 Test Item Value Reference Range Interpretation Comments S Preg (test code = S Negative *NA*(10/21/19 Preg) 3:29 PM) [facility] HospitalYcszsqkEBYNQQOZHW9538-53-50 21:29:00 Test Item Value Reference Range Interpretation Comments WBC X 10x3 (test code = WBC X 10x3) 6.8 3.7-10.4 [facility] GreenvillePfpdgewFOZPQEVEVI3193-18-23 21:29:00 Test Item Value Reference Range Interpretation Comments RBC X 10x6 (test code = RBC X 10x6) 4.73 4.20-5.40 [facility] GreenvilleTluenedFHSGGNJURX6647-79-24 21:29:00 Test Item Value Reference Range Interpretation Comments Hgb (test code = Hgb) 12.2 12.0-16.0 [facility] [id number] 21:29:00 Test Item Value Reference Range Interpretation Comments Sodium Lvl (test code = Sodium Lvl) 137 135-145 [facility] GreenvilleZhxpqmfVSYTRQDTZY5709-29-83 21:29:00 Test Item Value Reference Range Interpretation Comments Hct (test code = Hct) 36.8 36.0-48.0 [facility] GreenvilleBwdokbnRIXBBXMQAU9366-34-63 21:29:00 Test Item Value Reference Range Interpretation Comments MCV (test code = MCV) 77.7 80.0-98.0 [facility] HospitalGxayhdlWYOSYNWRFX6803-32-97 21:29:00 Test Item Value Reference Range Interpretation Comments MCH (test code = MCH) 25.8 pg 27.0-31.0 [facility] GreenvilleWnnzrsmWANHBVSRIH4846-64-73 21:29:00 Test Item Value Reference Range Interpretation Comments MCHC (test code = MCHC) 33.1 32.0-36.0 [facility] GreenvilleJiawxicNWPEAAFLFF2084-43-30 21:29:00 Test Item Value Reference Range Interpretation Comments RDW (test code = RDW) 16.6 11.5-14.5 [facility] HospitalRnklvibZWLRAWDRYF0046-53-33 21:29:00 Test Item Value Reference Range Interpretation Comments Platelet (test code = Platelet) 101 133-450 [facility] GreenvilleAahvzprJTCXXHXYXG8400-79-77 21:29:00 Test Item Value Reference Range Interpretation Comments MPV (test code = MPV) 10.8 7.4-10.4 [facility] HospitalUmuqeuaHSHLFEJAKM3826-79-20 21:29:00 Test Item Value Reference Range Interpretation Comments Segs (test code = Segs) 63.9 45.0-75.0 [facility] HospitalDljzerlYCRBEZOIMU7302-36-85 21:29:00 Test Item Value Reference Range Interpretation Comments Lymphocytes (test code = Lymphocytes) 23.2 20.0-40.0 [facility] AgdzfogONKKNAYZRH1219-99-70 21:29:00 Test Item Value Reference Range Interpretation Comments Monocytes (test code = Monocytes) 8.0 2.0-12.0 [facility]2020-01-15 21:29:00 Test Item Value Reference Range Interpretation Comments Potassium Lvl (test code = Potassium 3.8 3.5-5.1 Lvl) [place] 234570-01-15 21:29:00 Test Item Value Reference Range Interpretation Comments Eosinophils (test code = 4.5 See_Comment [A utomated message] The Eosinophils) system which ge nerated this result tra nsmitted reference range : <=4.0. The reference r denisha was not used to int erpret this result as normal/abnormal . [place] [address]-01-15 21:29:00 Test Item Value Reference Range Interpretation Comments Basophils (test code = 0.4 See_Comment [Aut omated message] The Basophils) system which ge nerated this result tra nsmitted reference range : <=1.0. The reference r denisha was not used to int erpret this result as normal/abnormal . [facility]lineRwncgodDXUWOYJTPW3920-49-21 21:29:00 Test Item Value Reference Range Interpretation Comments Neutrophils # (test code = Neutrophils 4.3 1.5-8.1 #) [place] [address]-01-15 21:29:00 Test Item Value Reference Range Interpretation Comments Lymphocytes # (test code = Lymphocytes 1.6 1.0-5.5 #) [place] [id number] 21:29:00 Test Item Value Reference Range Interpretation Comments Monocytes # (test code 0.5 See_Comment [Aut omated message] The = Monocytes #) system which generated this result tra nsmitted reference range : <=0.8. The reference r denisha was not used to int erpret this result as normal/abnormal . [place] [address]-01-15 21:29:00 Test Item Value Reference Range Interpretation Comments Eosinophils # (test code 0.3 See_Comment [A utomated message] The = Eosinophils #) system whic h generated this result tra nsmitted reference range : <=0.5. The reference r denisha was not used to int erpret this result as normal/abnormal . [place] [id number] 21:29:00 Test Item Value Reference Range Interpretation Comments Microcyte (test code = 1+ *ABN*(10/21/19 Microcyte) 3:29 PM) [place] [id number] 21:29:00 Test Item Value Reference Range Interpretation Comments Ethanol Lvl (test code = Ethanol Lvl) no gt [place] [id number] 21:29:00 Test Item Value Reference Range Interpretation Comments Etoh (%) (test code = Etoh (%)) no gt [facility] CenterDossierViewYADKIN VALLEY COMMUN[facility] HOSPITALYVWGB8228-82-55 21:29:00 Test Item Value Reference Range Interpretation Comments Chloride Lvl (test code = Chloride Lvl) 109 95-109 [facility] [id number] 21:29:00 Test Item Value Reference Range Interpretation Comments CO2 (test code = CO2) 27 24-32 [facility]2020-01-15 21:29:00 Test Item Value Reference Range Interpretation Comments Calcium Lvl (test code = Calcium Lvl) 8.5 8.5-10.5 [facility]2020-01-15 21:29:00 Test Item Value Reference Range Interpretation Comments Total Protein (test code = Total 6.6 6.4-8.4 Protein) [facility]2020-01-15 21:29:00 Test Item Value Reference Range Interpretation Comments Albumin Lvl (test code = Albumin Lvl) 3.5 3.5-5.0 [facility]2020-01-15 21:29:00 Test Item Value Reference Range Interpretation Comments ALANINE AMINOTRANSFERASE 20 See_Comment [A utomated message] (test code = ALANINE The sys tem which AMINOTRANSFERASE) generated this result transmitted ref erence range: <=65. Th e reference range was not used to int erpret this result as normal/abnormal . [facility] [employer] [id number] 21:29:00 Test Item Value Reference Range Interpretation Comments ASPARTATE TRANSAMINASE 17 See_Comment [Aut omated message] (test code = ASPARTATE The s ystem which TRANSAMINASE) generated this result transmitted ref erence range: <=37. Th e reference range was not used to interpr et this result as normal/abnormal . [facility] [id number] 21:29:00 Test Item Value Reference Range Interpretation Comments Alk Phos (test code = Alk Phos) 73 43-86 [facility]2020-01-15 21:29:00 Test Item Value Reference Range Interpretation Comments Bili Total (test code = Bili Total) 0.3 0.2-1.3 [facility]2020-01-15 21:29:00 Test Item Value Reference Range Interpretation Comments AGAP (test code = AGAP) 4.8 10.0-20.0 [facility]2020-01-15 21:29:00 Test Item Value Reference Range Interpretation Comments B/C Ratio (test code = B/C Ratio) 16 1 6-25 [facility]2020-01-15 21:29:00 Test Item Value Reference Range Interpretation Comments Globulin (test code = Globulin) 3.1 2.7-4.2 [facility]2020-01-15 21:29:00 Test Item Value Reference Range Interpretation Comments A/G Ratio (test code = A/G Ratio) 1.1 1 0.7-1.6 [facility]2020-01-15 21:29:00 Test Item Value Reference Range Interpretation Comments eGFR (test code = eGFR) 108 [facility] CenterCzkuygxJXBMLPUIHFPHT2431-14-26 21:29:00 Test Item Value Reference Range Interpretation Comments S Preg (test code = S Negative *NA*(10/21/19 Preg) 3:29 PM) [facility]lineGxlbtvoUQRXBZESQP3210-32-09 21:29:00 Test Item Value Reference Range Interpretation Comments WBC X 10x3 (test code = WBC X 10x3) 6.8 3.7-10.4 [facility] ShorelineYjlgvxzWLSSALYLAS2652-58-70 21:29:00 Test Item Value Reference Range Interpretation Comments RBC X 10x6 (test code = RBC X 10x6) 4.73 4.20-5.40 [facility] ShorelineLbuyanwOKESZAFGCR0499-02-60 21:29:00 Test Item Value Reference Range Interpretation Comments Hgb (test code = Hgb) 12.2 12.0-16.0 [facility] ShorelineDpmtsjzBXITVVADJN1288-50-81 21:29:00 Test Item Value Reference Range Interpretation Comments Hct (test code = Hct) 36.8 36.0-48.0 [facility] ShorelinePfsiqezQBQWOGAUML2787-66-31 21:29:00 Test Item Value Reference Range Interpretation Comments MCV (test code = MCV) 77.7 80.0-98.0 [place] 234570-01-15 21:29:00 Test Item Value Reference Range Interpretation Comments MCH (test code = MCH) 25.8 pg 27.0-31.0 [place] [address]-01-15 21:29:00 Test Item Value Reference Range Interpretation Comments MCHC (test code = MCHC) 33.1 32.0-36.0 [place] 234570-01-15 21:29:00 Test Item Value Reference Range Interpretation Comments RDW (test code = RDW) 16.6 11.5-14.5 [place] 234570-01-15 21:29:00 Test Item Value Reference Range Interpretation Comments Platelet (test code = Platelet) 101 133-450 [place] 234570-01-15 21:29:00 Test Item Value Reference Range Interpretation Comments MPV (test code = MPV) 10.8 7.4-10.4 [facility]lineMyjzjflXTSQVFNXPR6460-91-34 21:29:00 Test Item Value Reference Range Interpretation Comments Segs (test code = Segs) 63.9 45.0-75.0 [facility] ShorelineLeujajbIZUGBELRVH5856-05-93 21:29:00 Test Item Value Reference Range Interpretation Comments Lymphocytes (test code = Lymphocytes) 23.2 20.0-40.0 [place] 234570-01-15 21:29:00 Test Item Value Reference Range Interpretation Comments Monocytes (test code = Monocytes) 8.0 2.0-12.0 [place] 234570-01-15 21:29:00 Test Item Value Reference Range Interpretation Comments Eosinophils (test code = 4.5 See_Comment [A utomated message] The Eosinophils) system which ge nerated this result tra nsmitted reference range : <=4.0. The reference r denisha was not used to int erpret this result as normal/abnormal . [facility] ShorelineRdkjokqITLLZLXWFO0878-47-81 21:29:00 Test Item Value Reference Range Interpretation Comments Basophils (test code = 0.4 See_Comment [Aut omated message] The Basophils) system which ge nerated this result tra nsmitted reference range : <=1.0. The reference r denisha was not used to int erpret this result as normal/abnormal . [facility] ShorelineLaffkraUGIUZDEWUH7921-91-24 21:29:00 Test Item Value Reference Range Interpretation Comments Neutrophils # (test code = Neutrophils 4.3 1.5-8.1 #) [facility] ShorelineNfftztaDCMROGEXDL1172-46-32 21:29:00 Test Item Value Reference Range Interpretation Comments Lymphocytes # (test code = Lymphocytes 1.6 1.0-5.5 #) [facility] ShorelineCaquwtgSTKUYKCHQD3987-23-82 21:29:00 Test Item Value Reference Range Interpretation Comments Monocytes # (test code 0.5 See_Comment [Aut omated message] The = Monocytes #) system which generated this result tra nsmitted reference range : <=0.8. The reference r denisha was not used to int erpret this result as normal/abnormal . [facility] ShorelineZttuymiPMUAZHSKVF1437-76-14 21:29:00 Test Item Value Reference Range Interpretation Comments Eosinophils # (test code 0.3 See_Comment [A utomated message] The = Eosinophils #) system whic h generated this result tra nsmitted reference range : <=0.5. The reference r denisha was not used to int erpret this result as normal/abnormal . [facility] ShorelineKskxroeXZSQORIHVZ9656-53-98 21:29:00 Test Item Value Reference Range Interpretation Comments Microcyte (test code = 1+ *ABN*(10/21/19 Microcyte) 3:29 PM) [facility] CenterWnocomuHMNVOLFNUN3764-87-31 21:29:00 Test Item Value Reference Range Interpretation Comments Ethanol Lvl (test code = Ethanol Lvl) no gt [facility] GreenvilleSdlscmsALXUDADHAF8171-38-40 21:29:00 Test Item Value Reference Range Interpretation Comments Etoh (%) (test code = Etoh (%)) no gt [facility] Notes Date/Time Note Provider Source 2019-10-21 15:36:49-00:00 Radiation Dose CTDIVOL = 0 (mGy): DLP = 1097 (mGy-cm) [facility] PROCEDURE INFORMATION: Exam: CT Head Without Contrast [...] is recommended. Maryuri Lei MD On 10/21/2019 16:01: 42; [id number] 2019-10-21 15:15:00-00:00 PROCEDURE INFORMATION: [facility] Exam: XR Chest, 1 View Exam date [...] findings. Jaime Hawley MD On 10/21/2019 15:57:01; VR -[id number]"
[2023-06-03] MEDS ORDERED: AMOX/K CLAV 875 MG TAB ONE (22:13)
[2023-06-03] MEDS ORDERED: dexAMETHasone 10 MG/ML VIAL ONE (22:14)
--- NOTE | 2023-06-03 22:21 | ER ---
Nurse's Notes [facility] Name: Momo Parnell Age: 23 yrs Sex: Female : 2000 Arrival Date: 06/03/2023 Time: 21:49 Bed IW10 Private MD: Diagnosis: Acute tonsillitis, unspecified Presentation: 06/03 21:55 Chief complaint: Patient states: SORE THROAT ONSET LAST NIGHT. PT STATES THAT SHE WOKE cm10 UP AT 3AM BECAUSE IT WAS GETTING HARD TO SWALLOW. Coronavirus screen: Vaccine status: Patient reports being unvaccinated. Ebola Screen: Patient denies travel to an Ebola-affected area in the 21 days before illness onset. No symptoms or risks identified at this time. Initial Sepsis Screen: Does the patient meet any 2 criteria? No. Patient's initial sepsis screen is negative. Does the patient have a suspected source of infection? No. Patient's initial sepsis screen is negative. Risk Assessment: Do you want to hurt yourself or someone else? Patient reports no desire to harm self or others. Onset of symptoms was June 03, 2023. 21:55 Method Of Arrival: Ambulatory cm10 21:55 Acuity: JULI 4 cm10 Triage Assessment: 21:57 General: Appears in no apparent distress. comfortable, Behavior is calm, cooperative. cm10 Pain: Complains of pain in THROAT. EENT: Reports pain in THROAT. Neuro: No deficits noted. Level of Consciousness is awake, alert, Oriented to person, place, time, situation. Respiratory: No deficits noted. Airway is patent Respiratory effort is even, unlabored, Respiratory pattern is regular, symmetrical. Historical: - Allergies: 21:57 Iodinated Contrast Media - IV Dye; cm10 - PMHx: 21:57 Seizures; cm10 - Immunization history:: Adult Immunizations unknown. - Social history:: Smoking status: Reported history of juuling and/or vaping. Screenin:19 [facility] ED Fall Risk Assessment (Adult) Score/Fall Risk Level 0 - 2 = Low Risk. Abuse as6 screen: Denies threats or abuse. Denies injuries from another. Nutritional screening: No deficits noted. Tuberculosis screening: No symptoms or risk factors identified. Vital Signs: 21:55 BP 128 / 84; Pulse 102; Resp 16; Temp 98.2; Pulse Ox 100% ; Weight 115.67 kg; Height 5 cm10 ft. 4 in. ; Pain 9/10; 21:55 Body Mass Index 43.77 (115.67 kg, 162.56 cm) cm10 21:55 Pain Scale: Adult cm10 ED Course: 21:51 Patient arrived in ED. ag3 21:53 Evelyn Turner FNP-C is [facility]. kb 21:53 Andriy Tavera MD is Attending Physician. kb 21:57 Triage completed. cm10 21:57 Arm band placed on Patient placed in waiting room. cm10 22:19 Patient has correct armband on for positive identification. Provided Education on: as6 antibiotic teaching. 22:20 No provider procedures requiring assistance completed. Patient did not have IV access as6 during this emergency room visit. Administered Medications: 22:06 Drug: Amoxicillin-Clavulanate PO 875 mg Route: PO; cm10 22:19 Follow up: Response: No adverse reaction as6 22:07 Drug: Dexamethasone IM 10 mg Route: IM; Site: left gluteus; cm10 22:19 Follow up: Response: No adverse reaction as6 Medication: 22:19 VIS not applicable for this client. as6 Outcome: 21:56 Discharge ordered by MD. kb 22:20 Discharged to home ambulatory. as6 22:20 Condition: stable 22:20 Discharge instructions given to patient, Instructed on discharge instructions, follow up and referral plans. medication usage, Demonstrated understanding of instructions, follow-up care, medications, Prescriptions given X 1. 22:20 Patient left the ED. as6 Signatures: Evelyn Turner FNP-C FNP-Ckb Gomez, Alice ag3 Obey Medina, RN RN as6 Maureen Tse, MOHINI RN cm10
[2023-06-04 00:44] VITALS: BP 128/84; TEMP 98.2; O2SAT 100
== END 2023-06-03 22:20 | disposition home or self-care (01) ==
LOC: ER 21:49
DX: J03.90 Acute tonsillitis, unspecified (principal); Z91.041 Radiographic dye allergy status
CPT/HCPCS: 96372; 99284; J1100

== ENCOUNTER 2025-07-22 11:18 | Emergency (ER) | payer OTHER ==
--- OUTSIDE RECORDS SUMMARY | 2025-07-22 11:24 | XMS REPORT | Continuity of Care Document ---
Author Name Unknown Address [address] [facility] [place] [address] [facility] [place] Address [address] [facility] [facility] [place] [address] Care Team Providers Care Counter Weigher Name Role Phone Jessica House NP Primary Care Physician [phone] MIKALA OLSEN Attending Clinician Unavail able MIKALA OLSEN Attending Clinician Unavail able Demarcus, Generic Provider Attending Clinician Unavailable DAMARIS TAVERAS Attending Clinician Unavailable Damaris Taveras NP Attending Clinician [phone] Misti Painting MD Attending Clinician + Campaigns, Generic Provider Attending Clinician Unavailable NAHEED COMER Attending Clinician Unavailab NAHEED Anderson Attending Clinician Unavailab ARON Olivier Attending Clinician Unavailable Aron Rose PA-C Attending Clinician [phone] Roya TODD Attending Clinician Unavailable Roya Ramirez Attending Clinician [phone] Doctor Unassigned, [place] Attending Clinician U navailSiobhan Randle LMSW Attending Clinician Unava ilable Pgy3 Attending Clinician Unavailable Marily Bess MD Attending Clinician [phone] MARILY BESS Attending Clinician Unavaila ble IBIKUNLE, FOLUSHO F Attending Clinician Unavaila ble Ibikunle CALKERTwila F Attending Clinician [phone] Margi RNMary Attending Clinician Unavailable Eli Penn RN Attending Clinician [phone] Kevin Myles MD Attending Clinician [phone] GUTIERREZ POTTER Attending Clinician Unavailable Gutierrez Potter MD Attending Clinician [phone] KIRILL JAVED Attending Clinician Unavailable Kirill Garcia Attending Clinician [phone] Chandler YOON, Ann Marie S Attending Clinician [phone] VERNA JOINER Attending Clinician Unavailable Mannie Jesus DO Attending Clinician [phone] MANNIE JESUS Attending Clinician Unavailable SHIRAZ DUBOIS Attending Clinician Unavailable Shiraz Dubois APN Attending Clinician [phone] NEHA HANEY Attending Clinician Unavailable DAMARIS TAVERAS Admitting Clinician Unavailable ARON ROSE Admitting Clinician Unavailable Roya TODD Admitting Clinician Unavailable KEVIN MYLES Admitting Clinician Unavailable Kevin Myles MD Admitting Clinician [phone] KIRILL JAVED Admitting Clinician Unavailable Payers Payer Name Policy Type Policy Number Effective Date Expirati on Date Source Problems Condition Name Condition Details Condition Category Status Onset Date Resolution Date Last Treatment Date Treating Clinician Comments Source Cyst of fallopian tube Cyst of Fallopian Tube Problem Active 02-09 00:00: 00 [facility] Vaginal laceration , initial encounter Vaginal laceration , initial encounter Disease Active 2020-10 00:00: 00 Overview: Formatchris g of this note might be different from the original. Added automatic ally from request for surgery [id number] [facility] Morbid obesity with body mass index of 40.0-49.9 Morbid obesity with body mass index of 40.0-49.9 Disease Active 2020-10 00:00: 00 [facility] SEIZURE SEIZURE Active 10/21/2019 Netta Betancourt Diagnosis Active 1-15 00:00: 00 2019-12-02 10:28:00 Rick Betancourt History of Past Illness Condition Name Condition Details Condition Category Status Onset Date Resolution Date Last Treatment Date Treating Clinician Comments Source Unspecifie d convulsion s Unspecifie d convulsion s 10/21/2019 10/23/2019 [facility] Problem 10-21 18:00: 00 2019-10-23 23:30:17 2019-10-23 23:30:17 Rick Betancourt Allergies, Adverse Reactions, Alerts Allergy Name Allergy Type Status Severity Reaction(s) Onset Date Inactive Date Treating Clinician Comments Source n Propensi ty to adverse reaction to drug Active 02-20 00:00: 00 Ryan Foreman Iodine Strong - Oral Propensi ty to adverse reaction to drug Active 02-15 00:00: 00 Ryan Foreman Iodine Propensi ty to adverse reaction s Active Other - See comments 07-04 00:00: 00 sneezing [facility] IODINE DRUG INGREDI Active Low ITCHING 07-04 00:00: 00 [facility] Iodine Allergy to substanc e Active [facility] No Known Medicati on Allergie s No Known Medicati on Allergie s Active Rick Betancourt Social History Social Habit Start Date Stop Date Quantity Comments Source Sexual orientation U [facility] Exposure to SARS-CoV-2 (event) 2021-12-17 00:00:00 2022-01-16 11:36:00 Not sure [facility] Sex assigned at 2000 00:00:00 2000 00:00:00 [facility] Smoking Status Start Date Stop Date Source Tobacco smoking consumption unknown [facility] Social History Netta [email or web address] Medications Ordered Medication Name Filled Medication Name Start Date Stop Date Current Medication? Ordering Clinician Indication Dosage Frequency Signature (SIG) Comments Components Source predniSONE 50 mg tablet 04-17 00:00: 00 04-22 04:59 :00 No [id number] 50mg Take 1 tablet by mouth in the morning for 4 days. [facility] cetirizine (ZYRTEC) tablet 10 mg 04-16 22:45: 00 04-16 22:02 :00 No 10mg 10 mg, Oral, ONCE, 1 dose, On Sat04/16/24 at 1745, Routine [facility] dexamethaso ne sod phos PF injection 10 mg 04-16 22:00: 00 04-16 22:02 :00 No 10mg 10 mg, Oral, ONCE, 1 dose, On Sat04/16/24 at 1700, 1 mL [facility] iohexol (OMNIPAQUE 350 BULK-500 mL) injection 85 mL 2022-10 04:15: 00 09-24 04:15 :00 No 85mL 85 mL, Intravenou s, ONCE, 1 dose, On Sat09/23/23 at 2215, Routine [facility] diphenhydrA MINE (BENADRYL) injection 25 mg 2022-10 02:30: 00 09-24 02:28 :00 No 25mg 25 mg, Slow IV Push, ONCE, 1 dose, On Sat09/23/23 at 2030, STAT [facility] famotidine (PEPCID (PF)) injection 20 mg 2022-10 02:30: 00 09-24 02:31 :00 No 20mg 20 mg, Slow IV Push, ONCE, 1 dose, On Sat09/23/23 at 2030, ANGELES [facility] dexamethaso ne sod phos PF injection 10 mg 2022-10 02:30: 00 09-24 02:28 :00 No 10mg 10 mg, Slow IV Push, ONCE, 1 dose, On Sat09/23/23 at 2030, 1 mL [facility] ondansetron (ZOFRAN (PF)) injection 4 mg 2022-10 02:15: 00 09-24 02:20 :00 No 4mg 4 mg, Slow IV Push, ONCE, 1 dose, On Sat09/23/23 at 2014, ANGELES [facility] FENTanyl PF (SUBLIMAZE (PF)) injection 25 mcg 2022-10 02:15: 00 09-24 02:20 :00 No 25ug 25 mcg, Slow IV Push, ONCE, 1 dose, On Sat09/23/23 at 2015, STAT [facility] methylPREDN ISolone (MEDROL, ROBIN,) 4 mg tablets 2022-10 00:00: 00 Yes [id number] Take by mouth SEE-INSTRU CTIONS. follow package directions [facility] albuterol 90 mcg/actuati on inhaler 2022-10 00:00: 00 Yes [id number] 2{puff} Inhale 2 Puffs every 4 (four) hours as needed for Wheezing or Shortness of Breath. [facility] TAKE 1 TABLET 3 TIMES DAILY WITH FOOD NEEDED. 2022-10 00:00: 00 12-21 00:00 :00 No 800 Ryan Foreman bromphenira mine-pseudo ephedrine-D M (BROMFED DM) 2-30-10 mg/5 mL syrup 2022-10 00:00: 00 10-04 05:59 :00 No [id number] 10mL Take 10 mL by mouth 4 (four) times daily as needed for Congestion /Allergies for up to 10 days. [facility] TAKE ONE (1) TABLET(S) BY MOUTH DAILY BEFORE BREAKFAST. 2022-10 1-06 00:00: 00 Yes Ryan Foreman TAKE 1 TABLET BY MOUTH EVERY 12 HOURS FOR 10 DAYS 8-28 00:00: 00 12-21 00:00 :00 Mili Foreman TAKE ONE (1) TABLET(S) BY MOUTH DAILY BEFORE BREAKFAST. 5-02 00:00: 00 12-21 00:00 :00 Mili Foreman TAKE 2 TABLETS BY MOUTH EVERY DAY 2021-10 2-14 00:00: 00 12-21 00:00 :[address] 5 DROPS IN LEFT EAR 2 (TWO) TIMES DAILY. 2021-10 00:00: 00 12-21 00:00 :00 Mili Foreman INHALE 1 PUFF EVERY 4 TO 6 HOURS 2021-10 00:00: 00 12-21 00:00 :00 Mili Foreman Dose Unknown 2021-10 00:00: 00 12-21 00:00 :00 Mili Foreman TAKE 1 TABLET BY MOUTH EVERY 6 HOURS NEEDED FOR OTHER CRAMPING 2021-10 00:00: 00 12-21 00:00 :00 Mili Foreman TAKE 1 TABLET BY MOUTH THREE TIMES A DAY 2021-10 00:00: 00 12-21 00:00 :00 No Ryan Foreman Dose Unknown 2021-10 00:00: 00 12-21 00:00 :00 Mili Foreman Dose Unknown 2021-10 00:00: 00 12-21 00:00 :00 No Ryan Foreman ondansetron (ZOFRAN (PF)) injection 4 mg 2021-10 05:30: 00 07-21 04:19 :00 No 4mg 4 mg, Slow IV Push, ONCE, 1 dose, On 07/21/22 at 0030, ANGELES [facility] cefTRIAXone (ROCEPHIN) 1,000 mg in NaCl 0.9% (NS) 50 mL MINI-BAG 2021-10 03:45: 00 07-21 04:13 :00 No 1000mg 1,000 mg, IV Piggyback, ONCE, 1 dose, On Sat07/20/22 at 2245, Administer over 30 Minutes, 50 mL
Reas on for Anti-Infec tive: Documented Infection< br>Documen [place] Infection Site: Urine
D uration of Therapy: Other (see Comments) [facility] iopamidol (ISOVUE 370-500 mL) injection 70 mL 2021-10 02:04: 00 07-21 02:15 :00 No [id number] 70mL 70 mL, Intravenou s, ONCE, 1 dose, On Sat07/20/22 at 2115, Routine [facility] methylpredn isolone sod succ (SOLU-MEDRO L) injection 125 mg 2021-10 02:00: 00 07-21 00:54 :00 No 125mg 125 mg, Slow IV Push, ONCE, 1 dose, On Sat07/20/22 at 2100, ANGELES [facility] diphenhydrA MINE (BENADRYL) injection 25 mg 2021-10 02:00: 00 07-21 00:54 :00 No 25mg 25 mg, Slow IV Push, ONCE, 1 dose, On Sat07/20/22 at 2100, STAT [facility] NaCl 0.9% (NS) bolus infusion 1,000 mL 2021-10 02:00: 00 07-21 04:21 :00 No 1000mL at 999 mL/hr, 1,000 mL, IV Infusion, ONCE, 1 dose, On Sat07/20/22 at 2100, STAT [facility] ondansetron (ZOFRAN (PF)) injection 4 mg 2021-10 01:15: 00 07-21 00:14 :00 No 4mg 4 mg, Slow IV Push, ONCE, 1 dose, On Sat07/20/22 at 2015, ANGELES [facility] ondansetron 4 mg disintegrat ing tablet 2021-10 00:00: 00 Yes [id number] 4mg Take 1 tablet by mouth every 8 (eight) hours as needed for Nausea and Vomiting (N/V). [facility] cefdinir 300 mg capsule 2021-10 00:00: 00 07-28 04:59 :00 No [id number] 300mg Take 1 capsule by mouth in the morning and 1 capsule in the evening. Do all this for 7 days. [facility] Dose Unknown 02-23 00:00: 00 Yes Ryan Leyda Foreman Dose Unknown 02-20 00:00: 00 Yes Ryan Foreman Dose Unknown 02-20 00:00: 00 Yes Ryan Foreman Dose Unknown 02-20 00:00: 00 Yes Ryan Foreman Dose Unknown 17 00:00: 00 Yes Ryan Foreman Dose Unknown 16 00:00: 00 Yes Ryan Foreman Dose Unknown 02-17 00:00: 00 Yes Ryan Foreman Dose Unknown 02-17 00:00: 00 Yes Ryan Foreman ondansetron 4 mg disintegrat ing tablet 02-15 00:00: 00 Yes 1mg Ryan Foreman Dose Unknown 02-15 00:00: 00 Yes Ryan Foreman ofloxacin 0.3 % otic drops 01-16 00:00: 00 Yes [id number] 68605 5[drp] Place 5 Drops in left ear 2 (two) times daily. [facility] ibuprofen 600 mg tablet 2020-10 00:00: 00 Yes [id number] 100 600mg Take 1 tablet by mouth every 6 (six) hours. 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, 0 Rikc Betancourt hydrocortis one 2.5 % topical cream 10-29 00:00: 00 Yes 1% Ryan Foreman prednisone 20 mg tablet 10-29 00:00: 00 Yes 1mg Ryan Foreman sulfamethox azole 800 mg-trimetho prim 160 mg tablet 10-29 00:00: 00 Yes 1mg Ryan Foreman Denavir 1 % topical cream 2017-10 0-06 00:00: 00 Yes 1% Ryan Foreman amoxicillin 875 mg tablet 2017-10 0-05 00:00: 00 Yes 1mg Ryan Foreman ProAir HFA 90 mcg/actuati on aerosol inhaler 12-12 00:00: 00 Yes 12mcg/a ctuatio n Ryan Foreman prednisone 10 mg tablet 12-12 00:00: 00 Yes 1mg Ryan Foreman azithromyci n 250 mg tablet 12-12 00:00: 00 Yes mg Ryan Foreman loratadine 10 mg tablet 12-12 00:00: 00 Yes 1mg Ryan Foreman prednisone 10 mg tablet 2016-10 0 00:00: 00 Yes 1mg Ryan Foreman valacyclovi r 500 mg tablet TAKE ONE (1) TABLET(S) BY MOUTH TWICE A DAY FOR 5 DAYS. valacyclovi r 500 mg tablet TAKE ONE (1) TABLET(S) BY MOUTH TWICE A DAY FOR 5 DAYS. No 1 BID valacyclov ir 500 mg tablet TAKE ONE (1) TABLET(S) BY MOUTH TWICE A DAY FOR 5 DAYS. [facility] phentermine 37.5 mg tablet TAKE 1 TABLET BY MOUTH DAILY BEFORE BREAKFAST phentermine 37.5 mg tablet TAKE 1 TABLET BY MOUTH DAILY BEFORE BREAKFAST No phentermin e 37.5 mg tablet TAKE 1 TABLET BY MOUTH DAILY BEFORE BREAKFAST [facility] Immunizations Ordered Immunization Name Filled Immunization Name Date Status Comments Source Meningococcal MCV4O Meningococcal MCV4O 00:00:00 Completed Ryan Foreman Td(adult) unspecified fo Td(adult) unspecified fo 2021-08-27 00:00:00 Completed Ryan Foreman Td 2021-08-27 00:00:00 Completed [facility] Td 2021-08-27 00:00:00 Completed [facility] Td 2021-08-27 00:00:00 Completed [facility] Td 2021-08-27 00:00:00 Completed [facility] Td 2021-08-27 00:00:00 Completed [facility] Td 2021-08-27 00:00:00 Completed [facility] TD, NOS 2021-08-27 00:00:00 Completed [facility] DTaP-IPV DTaP-IPV 2011-02-06 00:00:00 Completed Ryan Foreman Hep A, ped/adol, 2 dose Hep A, ped/adol, 2 dose 2010-02-13 00:00:00 Completed Ryan Foreman Hep A, ped/adol, 2 dose Hep A, ped/adol, 2 dose 2009-11-15 00:00:00 Completed Ryan Foreman HEPATITIS A 2009-11-15 00:00:00 Completed [facility] HEPATITIS A 2009-11-15 00:00:00 Completed [facility] HEPATITIS A 2009-11-15 00:00:00 Completed [facility] HEPATITIS A 2009-11-15 00:00:00 Completed [facility] HEPATITIS A 2009-11-15 00:00:00 Completed [facility] HEPATITIS A 2009-11-15 00:00:00 Completed [facility] DTaP DTaP 2009-05-16 00:00:00 Completed Ryan Foreman Hep A, ped/adol, 2 dose Hep A, ped/adol, 2 dose 2009-05-16 00:00:00 Completed Ryan Foreman Hib (PRP-OMP) Hib (PRP-OMP) 2009-05-16 00:00:00 Completed Ryan Leyda Foreman DTaP-Hep B-IPV DTaP-Hep B-IPV 2007-12-18 00:00:00 Completed Ryan Foreman Hib (PRP-OMP) Hib (PRP-OMP) 2007-12-18 00:00:00 Completed Ryan Leyda Foreman Hep A, ped/adol, 2 dose Hep A, ped/adol, 2 dose 2007-07-21 00:00:00 Completed Ryanbecky Foreman varicella varicella 2007-07-21 00:00:00 Completed Ryan Leyda Foreman HEPATITIS A 2007-07-21 00:00:00 Completed [facility] Varicella (varivax)(chicken pox) 2007-07-21 00:00:00 Completed [facility] HEPATITIS A 2007-07-21 00:00:00 Completed [facility] Varicella (varivax)(chicken pox) 2007-07-21 00:00:00 Completed [facility] HEPATITIS A 2007-07-21 00:00:00 Completed [facility] Varicella (varivax)(chicken pox) 2007-07-21 00:00:00 Completed [facility] HEPATITIS A 2007-07-21 00:00:00 Completed [facility] Varicella (varivax)(chicken pox) 2007-07-21 00:00:00 Completed [facility] HEPATITIS A 2007-07-21 00:00:00 Completed [facility] Varicella (varivax)(chicken pox) 2007-07-21 00:00:00 Completed [facility] HEPATITIS A 2007-07-21 00:00:00 Completed [facility] Varicella (varivax)(chicken pox) 2007-07-21 00:00:00 Completed [facility] DTaP DTaP 2007-07-03 00:00:00 Completed Ryan Foreman Hep B, adolescent or ped Hep B, adolescent or ped 2007-07-03 00:00:00 Completed Ryan Foreman Hib (PRP-OMP) Hib (PRP-OMP) 2007-07-03 00:00:00 Completed Ryan Foreman Hib (PRP-OMP) Hib (PRP-OMP) 2007-05-02 00:00:00 Completed Ryan Foreman DTaP-Hep B-IPV DTaP-Hep B-IPV 2007-04-21 00:00:00 Completed Ryan Foreman Hep B, adolescent or ped Hep B, adolescent or ped 2007-02-05 00:00:00 Completed Ryan Foreman DTaP, unspecified formul DTaP, unspecified formul 2005-08-21 00:00:00 Completed Ryan Foreman DTaP DTaP 2005-08-21 00:00:00 Completed Ryan Foreman MMR MMR 2005-08-21 00:00:00 Completed Ryan Foreman IPV IPV 2005-08-21 00:00:00 Completed Ryan Foreman DTAP 2005-08-21 00:00:00 Completed [facility] MMR 2005-08-21 00:00:00 Completed [facility] Polio (IPV/OPV) 2005-08-21 00:00:00 Completed [facility] DTAP 2005-08-21 00:00:00 Completed [facility] MMR 2005-08-21 00:00:00 Completed [facility] Polio (IPV/OPV) 2005-08-21 00:00:00 Completed [facility] DTAP 2005-08-21 00:00:00 Completed [facility] MMR 2005-08-21 00:00:00 Completed [facility] Polio (IPV/OPV) 2005-08-21 00:00:00 Completed [facility] DTAP 2005-08-21 00:00:00 Completed [facility] MMR 2005-08-21 00:00:00 Completed [facility] Polio (IPV/OPV) 2005-08-21 00:00:00 Completed [facility] DTAP 2005-08-21 00:00:00 Completed [facility] MMR 2005-08-21 00:00:00 Completed [facility] Polio (IPV/OPV) 2005-08-21 00:00:00 Completed [facility] DTAP 2005-08-21 00:00:00 Completed [facility] MMR 2005-08-21 00:00:00 Completed [facility] Polio (IPV/OPV) 2005-08-21 00:00:00 Completed TD, NOS Unknown Completed [facility] DTAP Unknown Completed [facility] HEPATITIS A Unknown Completed [facility] MMR Unknown Completed [facility] Polio (IPV/OPV) Unknown Completed [facility] Varicella (varivax)(chicken pox) Unknown Completed [facility] TD, NOS Unknown Completed [facility] DTAP Unknown Completed [facility] HEPATITIS A Unknown Completed [facility] MMR Unknown Completed [facility] Polio (IPV/OPV) Unknown Completed [facility] Varicella (varivax)(chicken pox) Unknown Completed [facility] TD, NOS Unknown Completed [facility] DTAP Unknown Completed [facility] HEPATITIS A Unknown Completed [facility] MMR Unknown Completed [facility] Polio (IPV/OPV) Unknown Completed [facility] Varicella (varivax)(chicken pox) Unknown Completed [facility] Vital Signs Vital Name Observation Time Observation Value Comments S ource BP Systolic 2025-02-09 00:00:00 113 mm[Hg] [facility] BP Diastolic 2025-02-09 00:00:00 79 mm[Hg] [facility] BMI (Body Mass Index) 2025-02-09 00:00:00 45.1 kg/m2 [facility] Body Weight 2025-02-09 00:00:00 263 [lb_av] [facility] Height 2025-02-09 00:00:00 64 [in_i] [facility] Systolic blood pressure 2024-12-28 05:00:00 133 mm[Hg] [facility] Diastolic blood pressure 2024-12-28 05:00:00 76 mm[Hg] [facility] Heart rate 2024-12-28 05:00:00 82 /min [facility] Respiratory rate 2024-12-28 05:00:00 23 /min [facility] Oxygen saturation in Arterial blood by Pulse oximetry 2024-12-28 05:00:00 99 /min [facility] Body temperature 2024-12-28 04:01:00 36.78 Juany [facility] Body height 2024-12-28 04:01:00 165.1 cm [facility] Body weight 2024-12-28 04:01:00 119.75 kg [facility] BMI 2024-12-28 04:01:00 43.93 kg/m2 [facility] Systolic blood pressure 2024-04-16 22:56:00 119 mm[Hg] [facility] Diastolic blood pressure 2024-04-16 22:56:00 83 mm[Hg] [facility] Heart rate 2024-04-16 22:56:00 85 /min [facility] Body temperature 2024-04-16 22:56:00 36.44 Juany [facility] Respiratory rate 2024-04-16 22:56:00 20 /min [facility] Oxygen saturation in Arterial blood by Pulse oximetry 2024-04-16 22:56:00 98 /min [facility] Body height 2024-04-16 21:55:00 165.1 cm [facility] Body weight 2024-04-16 21:55:00 117.935 kg [facility] BMI 2024-04-16 21:55:00 43.27 kg/m2 [facility] Systolic blood pressure 2023-09-24 05:00:00 121 mm[Hg] [facility] Diastolic blood pressure 2023-09-24 05:00:00 81 mm[Hg] [facility] Heart rate 2023-09-24 05:00:00 84 /min [facility] Respiratory rate 2023-09-24 05:00:00 26 /min [facility] Oxygen saturation in Arterial blood by Pulse oximetry 2023-09-24 05:00:00 93 /min [facility] Body temperature 2023-09-24 00:04:00 37.11 Juany [facility] Body height 2023-09-24 00:04:00 162.6 cm [facility] Body weight 2023-09-24 00:04:00 108.41 kg [facility] BMI 2023-09-24 00:04:00 41.02 kg/m2 [facility] Systolic blood pressure 2022-07-21 04:22:01 100 mm[Hg] [facility] Diastolic blood pressure 2022-07-21 04:22:01 62 mm[Hg] [facility] Heart rate 2022-07-21 04:22:01 95 /min [facility] Respiratory rate 2022-07-21 04:22:01 16 /min [facility] Oxygen saturation in Arterial blood by Pulse oximetry 2022-07-21 04:22:01 98 /min [facility] Body temperature 2022-07-21 01:08:00 36.89 Juany [facility] Body height 2022-07-20 23:56:00 162.6 [facility] weight 2022-07-20 23:56:00 113.399 kg [facility] BMI 2022-07-20 23:56:00 42.91 kg/m2 [facility] Systolic blood pressure 2022-01-16 16:52:00 134 mm[Hg] [facility] Diastolic blood pressure 2022-01-16 16:52:00 85 mm[Hg] [facility] Heart rate 2022-01-16 16:52:00 87 /min [facility] Body temperature 2022-01-16 16:52:00 37.06 Juany [facility] Respiratory rate 2022-01-16 16:52:00 18 /min [facility] Body height 2022-01-16 16:52:00 165.1 cm [facility] Body weight 2022-01-16 16:52:00 108.863 kg [facility] BMI 2022-01-16 16:52:00 39.94 kg/m2 [facility] Oxygen saturation in Arterial blood by Pulse oximetry 2022-01-16 16:52:00 97 /min [facility] Systolic blood pressure 2021-09-21 19:46:00 132 mm[Hg] [facility] Diastolic blood pressure 2021-09-21 19:46:00 87 mm[Hg] [facility] Heart rate 2021-09-21 19:46:00 95 /min [facility] Body temperature 2021-09-21 19:46:00 37.11 Juany [facility] Respiratory rate 2021-09-21 19:46:00 21 /min [facility] Body height 2021-09-21 19:46:00 162.6 cm [facility] Body weight 2021-09-21 19:46:00 109.362 kg [facility] BMI 2021-09-21 19:46:00 41.38 kg/m2 [facility] [facility] Height Measured 2025-02-15 15:53:00 65.00 inches Ryan F Ahsan Body Temperature 2025-02-15 15:53:00 98.20 degrees Ryan F Ahsan Heart Rate 2025-02-15 15:53:00 104.00 /min Step hen F Ahsan Respiratory Rate 2025-02-15 15:53:00 18.00 /min Ryan F Ahsan BP Systolic 2025-02-15 15:53:00 138 mm[Hg] Step hen F Ahsan BP Diastolic 2025-02-15 15:53:00 84 mm[Hg] Yong phen F Ahsan Weight Measured 2025-02-15 15:53:00 259.00 pounds Ryan F Ahsan BP Systolic 2023-09-23 09:23:00 117 mm[Hg] Step hen F Ahsan BP Diastolic 2023-09-23 09:23:00 62 mm[Hg] Yong phen F Ahsan Weight Measured 2023-09-23 09:23:00 239.60 pounds Ryan F Ahsan Height Measured 2023-09-23 09:23:00 65.00 inches Ryan F Ahsan Body Temperature 2023-09-23 09:23:00 98.00 degrees Ryan F Ahsan Heart Rate 2023-09-23 09:23:00 100.00 /min Step hen F Ahsan Respiratory Rate 2023-09-23 09:23:00 Ryan F Ahsan BP Systolic 2022-02-20 14:07:00 93 mm[Hg] Step hen F Ahsan BP Diastolic 2022-02-20 14:07:00 66 mm[Hg] Yong phen F Ahsan Weight Measured 2022-02-20 14:07:00 242.00 pounds Ryan F Ahsan Height Measured 2022-02-20 14:07:00 65.00 inches Ryan F Ahsan Body Temperature 2022-02-20 14:07:00 98.50 degrees Ryan F Ahsan Heart Rate 2022-02-20 14:07:00 90.00 /min Susanna en F Ahsan Respiratory Rate 2022-02-20 14:07:00 Ryan F Ahsan BP Systolic 2022-02-15 08:50:00 101 mm[Hg] Step hen F Ahsan BP Diastolic 2022-02-15 08:50:00 69 mm[Hg] Yong phen F Ahsan Weight Measured 2022-02-15 08:50:00 244.40 pounds Ryan F Ahsan Height Measured 2022-02-15 08:50:00 65.00 inches Ryan F Ahsan Body Temperature 2022-02-15 08:50:00 98.30 degrees Ryan F Ahsan Heart Rate 2022-02-15 08:50:00 78.00 /min Susanna en F Ahsan Respiratory Rate 2022-02-15 08:50:00 Ryan F Ahsan Respitory Rate 2019-10-21 23:51:00 M ovidio Betancourt Systolic (mm Hg) 2019-10-21 23:51:00 [facility] Diastolic (mm Hg) 2019-10-21 23:51:00 [facility] Temperature Oral (F) 2019-10-21 23:51:00 98.2 F [facility] Respitory Rate 2019-10-21 22:11:00 [facility] Systolic (mm Hg) 2019-10-21 22:11:00 [facility] Diastolic (mm Hg) 2019-10-21 22:11:00 [facility] Respitory Rate 2019-10-21 22:09:00 [facility] Systolic (mm Hg) 2019-10-21 22:09:00 [facility] Diastolic (mm Hg) 2019-10-21 22:09:00 [facility] Heart Rate 2019-10-21 21:01:00 [facility] Temperature Oral (F) 2019-10-21 21:01:00 98.7 F [facility] Height 2019-10-21 21:01:00 162.56 cm [facility] BMI Calculated 2019-10-21 21:01:00 [facility] Weight 2019-10-21 21:01:00 [facility] BP Systolic 2018-10-29 15:21:00 109 mm[Hg] Step hen F Ahsan BP Diastolic 2018-10-29 15:21:00 64 mm[Hg] Yong phen F Ahsan Weight Measured 2018-10-29 15:21:00 201.20 pounds Ryan F Ahsan Height Measured 2018-10-29 15:21:00 65.00 inches Ryan F Ahsan Body Temperature 2018-10-29 15:21:00 98.70 degrees Ryan F Ahsan Heart Rate 2018-10-29 15:21:00 79.00 /min Susanna en F Ahsan Respiratory Rate 2018-10-29 15:21:00 18.00 /min Ryan F Ahsan BP Systolic 2018-07-11 11:14:00 112 mm[Hg] Step hen F Ahsan BP Diastolic 2018-07-11 11:14:00 71 mm[Hg] Oyng phen F Ahsan Weight Measured 2018-07-11 11:14:00 196.00 pounds Ryan F Ahsan Height Measured 2018-07-11 11:14:00 65.00 inches Ryan F Ahsan Body Temperature 2018-07-11 11:14:00 98.40 degrees Ryan F Ahsan Heart Rate 2018-07-11 11:14:00 80.00 /min Susanna en F Ahsan Respiratory Rate 2018-07-11 11:14:00 18.00 /min Ryan F Ahsan BP Systolic 2018-07-11 11:09:00 112 mm[Hg] Step hen F Ahsan BP Diastolic 2018-07-11 11:09:00 71 mm[Hg] Yong phen F Ahsan Weight Measured 2018-07-11 11:09:00 196.60 pounds Ryan F Ahsan Height Measured 2018-07-11 11:09:00 65.20 inches Ryan F Ahsan Body Temperature 2018-07-11 11:09:00 98.40 degrees Ryan F Ahsan Heart Rate 2018-07-11 11:09:00 80.00 /min Susanna en F Ahsan Respiratory Rate 2018-07-11 11:09:00 18.00 /min Ryan F Ahsan BP Systolic 2018-02-01 13:36:00 108 mm[Hg] Step hen F Ahsan BP Diastolic 2018-02-01 13:36:00 74 mm[Hg] Yong phen F Ahsan Weight Measured 2018-02-01 13:36:00 195.00 pounds Ryan F Ahsan Height Measured 2018-02-01 13:36:00 65.20 inches Ryan F Ahsan Body Temperature 2018-02-01 13:36:00 98.40 degrees Ryan F Ahsan Heart Rate 2018-02-01 13:36:00 104.00 /min Step hen F Ahsan Respiratory Rate 2018-02-01 13:36:00 22.00 /min Ryan F Ahsan BP Systolic 2018-01-25 10:01:00 108 mm[Hg] Step hen F Ahsan BP Diastolic 2018-01-25 10:01:00 78 mm[Hg] Yong phen F Ahsan Weight Measured 2018-01-25 10:01:00 195.60 pounds Ryan F Ahsan Height Measured 2018-01-25 10:01:00 65.20 inches Ryan F Ahsan Body Temperature 2018-01-25 10:01:00 98.10 degrees Ryan F Ahsan Heart Rate 2018-01-25 10:01:00 82.00 /min Susanna en F Ahsan Respiratory Rate 2018-01-25 10:01:00 23.00 /min Ryan F Ahsan BP Systolic 2018-01-14 16:10:00 112 mm[Hg] Kade Foreman BP Diastolic 2018-01-14 16:10:00 71 mm[Hg] Yong Foreman Weight Measured 2018-01-14 16:10:00 194.40 pounds Ryan Foreman Height Measured 2018-01-14 16:10:00 65.20 inches Ryan Foreman Body Temperature 2018-01-14 16:10:00 98.10 degrees Ryan Foreman Heart Rate 2018-01-14 16:10:00 84.00 /min Susanna en Leyda Foreman Respiratory Rate 2018-01-14 16:10:00 22.00 /min Ryan Foreman Procedures Procedure Date / Time Performed Performing Clinician Source US TRANSVAGINAL 2025-02-12 00:00:00 [facility] EKG-12 LEAD 2023-09-24 05:35:42 Aron Rose [facility] CT ABDOMEN PELVIS W CONTRAST 2023-09-24 03:18:30 Aron Rose [facility] CT CHEST PULMONARY ANGIOGRAM 2023-09-24 03:18:30 Aron Rose [facility] POCT TEST 2023-09-24 02:19:00 Aron Rose [facility] URINALYSIS 2023-09-24 02:12:00 Aron Rose [facility] CBC WITH DIFF 2023-09-24 01:13:00 Aron Rose [facility] TROPONIN I 2023-09-24 01:11:00 Aron Rose [facility] COMP. METABOLIC PANEL (75139) 2023-09-24 01:11:00 Aron Rose [facility] D-DIMER 2023-09-24 01:11:00 Aron Rose [facility] RAPID STREP SCREEN FOR GROUP A 2023-09-24 01:11:00 Aron Rose [facility] N-TERMINAL PRO-BNP 2023-09-24 01:11:00 [facility] 2023-09-24 00:59:28 Aron Rose [facility] CONSENT/REFUSAL FOR DIAGNOSIS AND TREATMENT 2023-09-23 23:57:23 Doctor Unassigned, [place] [facility] CT ABDOMEN PELVIS W CONTRAST 2022-07-21 02:03:34 Roya Todd [facility] RAPID INFLUENZA A/B 2022-07-21 00:59:00 Roya Todd [facility] COVID-19 (ID NOW RAPID TESTING) 2022-07-21 00:59:00 Roya Todd [facility] LIPASE 2022-07-21 00:14:00 Roya Todd [facility] MAGNESIUM 2022-07-21 00:14:00 Roya Todd [facility] COMP. METABOLIC PANEL (98165) 2022-07-21 00:14:00 Roya Todd [facility] CBC WITH DIFF 2022-07-21 00:14:00 Roya Todd [facility] URINALYSIS 2022-07-21 00:14:00 Roya Todd [facility] POCT TEST 2022-07-21 00:14:00 Roya Todd [facility] NOTICE OF PRIVACY PRACTICES 2022-07-20 23:38:49 Doctor Unassigned, [place] [facility] CONSENT/REFUSAL FOR DIAGNOSIS AND TREATMENT 2022-07-20 23:37:11 Doctor Unassigned, [place] [facility] CONSENT/REFUSAL FOR DIAGNOSIS AND TREATMENT 2022-06-20 15:17:54 Doctor Unassigned, [place] [facility] NOTICE OF PRIVACY PRACTICES 2022-01-16 16:36:22 Doctor Unassigned, [place] [facility] CONSENT/REFUSAL FOR DIAGNOSIS AND TREATMENT 2022-01-16 16:36:08 Doctor Unassigned, [place] [facility] Surgical Procedure 2021-08-27 00:00:00 Pr ivia Medical Encounters Start Date/Time End Date/Time Encounter Type Admission Type Attending [facility] Care Facility Care Department Encounter ID Source 2025-02-15 15:18:28 2025-02-15 15:18:28 Outpatient SFA SFA [id number] Ryan Foreman 2025-02-15 00:00:00 2025-02-15 00:00:00 Outpatient Visit [facility] [id number] Ryan Foreman 2025-02-12 00:00:00 2025-02-12 00:00:00 Tish Crook MD: [address], [place] [address] , Ph. [facility] - GC_GCBZW_La adriana Johnny* [id number] [facility] 2025-02-10 00:00:00 2025-02-10 00:00:00 MICHAELA Mullins: [address], [place] [address] , Ph. [facility] - GC_GCBZW_Susan wright Johnny* [id number] [facility] 2025-02-09 00:00:00 2025-02-09 00:00:00 MICHAELA Mullins: [address], [place] [address] , Ph. [facility] - GC_GCBZW_Susan adriana Johnny* [id number] [facility] 2025-01-06 00:00:00 2025-01-06 10:24:00 Letter (Out) Campaigns, Generic Provider Campaigns, Generic Provider [facility] ([place]) ..840.114 350.1.13.10 4.2.7.2.686 [id number] [facility] 2024-12-27 23:05:00 2024-12-28 00:32:00 Emergency X DAMARIS TAVERAS [facility] ERT [id number] [facility] 2024-12-27 23:05:00 2024-12-28 00:32:00 Emergency Damaris Taveras [facility] ..840.114 350.1.13.10 4.2.7.2.686 [id number] [facility] 2021-08-27 00:00:00 2024-12-02 16:30:01 Case Management Hudson Misti Scott [facility] (LEANNA) 1.2.840.114 350.1.13.10 4.2.7.2.686 [id number] [facility] 2024-04-29 00:00:00 2024-04-29 10:14:00 Letter (Out) Campaigns, Generic Provider [facility] 1.2.840.114 350.1.13.10 4.2.7.2.686 [id number] [facility] 2024-04-16 16:58:00 2024-04-16 18:05:00 Emergency X NAHEED COMER SANDRA [facility] ERT [id number] [facility] 2024-04-16 16:58:00 2024-04-16 18:05:00 Emergency Naheed Comer [facility] 1.2.840.114 350.1.13.10 4.2.7.2.686 [id number] [facility] 2023-09-23 18:13:00 2023-09-23 23:40:00 Emergency X ARON ROSE [facility] ERT [id number] [facility] 2023-09-23 18:13:00 2023-09-23 23:40:00 Emergency Aron Rose [facility] 1.2.840.114 350.1.13.10 4.2.7.2.686 [id number] [facility] 2023-09-23 09:16:33 2023-09-23 09:16:33 Outpatient SFA [facility] [id number] Ryan Foreman 2022-07-20 18:55:00 2022-07-20 23:33:00 Emergency X Roya TODD [facility] ERT [id number] [facility] 2022-07-20 18:55:00 2022-07-20 23:33:00 Emergency Roya Todd [facility] 1.2.840.114 350.1.13.10 4.2.7.2.686 [id number] [facility] 2022-06-20 10:47:00 2022-06-20 14:17:00 Emergency X Roya TODD [facility] ERT [id number] [facility] 2022-06-20 10:47:00 2022-06-20 14:17:00 Emergency Roya Todd [facility] 1.2.840.114 350.1.13.10 4.2.7.2.686 [id number] [facility] 2022-01-16 11:53:00 2022-01-16 14:24:00 Emergency X Roya TODD [facility] ERT [id number] [facility] 2022-01-16 11:53:00 2022-01-16 14:24:00 Emergency Roya Todd [facility] 1.2.840.114 350.1.13.10 4.2.7.2.686 [id number] [facility] 2022-01-16 00:00:00 2022-01-16 00:00:00 Orders Only Doctor Unassigned, [place] [facility] 1.2.840.114 350.1.13.10 4.2.7.2.686 [id number] [facility] 2021-12-06 00:00:00 2021-12-06 00:00:00 Case Management Siobhan Arita 1.2.840.114 350.1.13.10 4.2.7.2.686 [id number] [facility] 2021-09-21 14:15:00 2021-09-21 14:15:00 Office Visit Pgy3 Marily Bess Kailey [facility] 1..114 350.1.13.10 4.2.7.2.686 [id number] [facility] 2021-09-21 14:15:00 2021-09-21 14:11:32 Outpatient R MARILY BESS [facility] [id number] [facility] 2021-09-21 00:00:00 2021-09-21 00:00:00 Orders Only Doctor Unassigned, [place] [facility] 1..114 350.1.13.10 4.2.7.2.686 [id number] [facility] 2021-09-03 18:27:00 2021-09-03 21:05:00 Emergency X TWILA BURRELL [facility] ERT [id number] [facility] 2021-09-03 18:27:00 2021-09-03 21:05:00 Emergency Twila Burrell [facility] 1..114 350.1.13.10 4.2.7.2.686 [id number] [facility] 2021-09-02 00:00:00 2021-09-02 00:00:00 Nurse Triage Mary Kiser [facility] 1..114 350.1.13.10 4.2.7.2.686 [id number] [facility] 2021-08-30 00:00:00 2021-08-30 00:00:00 Orders Only Doctor Unassigned, [place] [facility] 1..114 350.1.13.10 4.2.7.2.686 [id number] [facility] 2021-08-29 00:00:00 2021-08-29 00:00:00 Transition of Care Eli Penn 1.2.840.114 350.1.13.10 4.2.7.2.686 [id number] [facility] 2021-08-27 08:43:00 2021-08-27 13:58:00 Inpatient X [facility] OBW [id number] [facility] 2021-08-27 08:43:00 2021-08-27 13:58:00 Hospital Encounter [facility] 1.2.840.114 350.1.13.10 4.2.7.2.686 [id number] [facility] 2021-08-27 09:00:00 2021-08-27 10:26:00 Surgery [facility] 1.2840.114 350.1.13.10 4.2.7.2.686 [id number] [facility] 2021-08-27 06:46:00 2021-08-27 08:25:00 Emergency X MELECIOARUNAGUTIERREZ [facility] ERT [id number] [facility] 2021-08-27 06:46:00 2021-08-27 08:25:00 Emergency BethGutierrez [facility] 1.2840.114 350.1.13.10 4.2.7.2.686 [id number] [facility] 2021-08-27 06:46:00 2021-08-27 08:25:00 Emergency X [facility] ERT [id number] [facility] 2021-07-27 00:57:00 2021-07-27 02:21:00 Emergency X KIRILL JAVED [facility] ERT [id number] [facility] 2021-07-27 00:57:00 2021-07-27 02:21:00 Emergency Kirill Javed [facility] 1.2.840.114 350.1.13.10 4.2.7.2.686 [id number] [facility] 2021-07-04 17:58:00 2021-07-04 20:45:00 Emergency Ann Marie Arteaga [facility] 1.2.840.114 350.1.13.10 4.2.7.2.686 [id number] [facility] 2021-07-04 17:52:00 2021-07-04 17:52:00 Emergency X [facility] ERT [id number] [facility] 2021-07-04 00:00:00 2021-07-04 00:00:00 Orders Only Doctor Unassigned, [place] [facility] 1.2.840.114 350.1.13.10 4.2.7.2.686 [id number] [facility] 2021-05-03 01:50:00 2021-05-03 01:50:00 Emergency X VERNA JOINER [facility] ERT [id number] [facility] 2020-07-31 01:53:00 2020-07-31 04:10:00 Emergency Mannie Jesus [facility] 1.2.840.114 350.1.13.10 4.2.7.2.686 [id number] 2020-07-31 01:48:00 2020-07-31 01:48:00 Emergency X MANNIE JESUS [facility] ERT [id number] [facility] 2020-03-17 08:47:37 2020-03-17 10:04:00 Emergency [facility] 1.2.840.114 350.1.13.10 4.2.7.2.686 [id number] 2020-03-17 08:32:00 2020-03-17 08:32:00 Emergency X [facility] ERT [id number] [facility] 2019-11-29 12:21:58 2019-11-29 14:07:00 Emergency X SHIRAZ DUBOIS [facility] ERT [id number] [facility] 2019-11-29 12:21:58 2019-11-29 14:07:00 Emergency Shiraz Dubois [facility] 1.2.840.114 350.1.13.10 4.2.7.2.686 [id number] 2019-10-21 21:00:43 2019-10-21 23:54:00 Emergency Olivao amber [facility] [id number] Rick davis [facility] 2019-10-21 15:00:00 2019-10-21 17:54:00 Emergency E NEHA HANEY [facility] 7500 [facility] Results Test Description Test Time Test Comments Results Result Co [id number]:00* Test Item Value Reference Range Interpretation Comme nts chlamydia trachomatis (test code = chlamydia trachomatis) 0.000 ppm 23.000-31.467 haemophilus ducreyi (test co de = haemophilus ducreyi) 0.000 ppm 23.000-31.643 herpes simplex virus 1 (test code = herpes simplex virus 1) 20.657 ppm 23.000-32.355 A herpes simplex virus 2 (test code = herpes simplex virus 2) 0.000 ppm 23.000-31.433 human monkeypox virus (test code = human monkeypox virus) 0.000 ppm 23.000-32.544 treponema pallidum (syphilis ) (test code = treponema pallidum (syphilis)) 0.000 ppm 23.000-32.426 varicella zoster virus ([place] herpesvirus 3) (test code = varicella zoster virus (human herpesvirus 3)) 0.000 ppm 23.000-31.749 [facility] W Auto Differential panel - [id number] 00:00:00* Test Item Value Reference Range Interpretation Comme nts WBC (test code = WBC) 6.0 10 3.7-12.0 RBC (test code = RBC) 4.78 10 3.60-5.50 HGB (test code = HGB) 12.6 g/dL 11.5-15.6 HCT (test code = HCT) 39.6 % 34.5-46.5 MCV (test code = MCV) 82.7 um 80.0-102.0 MCH (test code = MCH) 26.4 pg 25.0-34.1 MCHC (test code = MCHC) 32.0 g/dL 29.0-35.0 RDW (test code = RDW) 15.9 % 10.9-16.9 plt (test code = plt) 108 10 136-392 L MPV (test code = MPV) 11.7 um 7.4-11.1 H gran % (test code = gran %) 61.4 % 36.0-78.0 lymph % (test code = lymph %) 31.7 % 12.0-48.0 mono % (test code = mono %) 4.6 % 0.0-13.0 eos % (test code = eos %) 2 % 0-8 baso % (test code = baso %) 0 % 0-2 gran # (test code = gran #) 3.7 10 1.2-6.8 lymph # (test code = lymph #) 1.9 10 0.7-3.2 mono # (test code = mono #) 0.3 10 0.1-0.8 eos # (test code = eos #) 0.1 10 0.0-0.4 baso # (test code = baso #) 0.0 10 0.0-0.2 [facility] MedicalThyrotropin [Units/volume] in Serum or [id number] 00:00:00* Test Item Value Reference Range Interpretation Comme nts TSH (test code = TSH) 1.930 uIU/mL 0.500-4.530 [facility] WITH [id number] 03:02:14* Test Item Value Reference Range Interpretation Comme nts WBC (test code = 6690-2) 4.36 See_Comment [Automated messa ge] The system which generated this result transmitted reference range: 4.30 - 11.10 10*3/?L. The reference range was not used to interpret this result as normal/abnormal. RBC (test code = 789-8) 5.27 See_Comment H [Automated messa ge] The system which generated this result transmitted reference range: 3.93 - 5.25 10*6/?L. The reference range was not used to interpret this result as normal/abnormal. HGB (test code = 718-7) 14.3 g/dL 11.6-15.0 HCT (test code = 4544-3) 44.0 % 35.7-45.2 MCV (test code = 787-2) 83.5 fL 80.6-95.5 MCH (test code = 785-6) 27.1 pg 25.9-32.8 MCHC (test code = 786-4) 32.5 g/dL 31.6-35.1 RDW-SD (test code = 82239-2) 42.5 fL 39.0-49.9 RDW-CV (test code = 788-0) 13.9 % 12.0-15.5 PLT (test code = 777-3) 73 See_Comment L [Automated Xceediuma ge] The system which generated this result transmitted reference range: 166 - 358 10*3/?L. The reference range was not used to interpret this result as normal/abnormal. MPV (test code = 48616-5) 13.6 fL 9.5-12.9 H NRBC/100 WBC (test code = 6810272731) 0.0 See_Comment [Automated [employer] ssage] The system which generated this result transmitted reference range: 0.0 - 10.0 /100 WBCs. The reference range was not used to interpret this result as normal/abnormal. NRBC x10^3 (test code = 5820599786) See_Comment [Automated Xceediuma ge] The system which generated this result transmitted reference range: 10*3/?L. The reference range was not used to interpret this result as normal/abnormal. SEG % (test code = 43890-3) 71 % 33-76 BAND % (test code = 46048-2) 3 % 0-1 H LYMPH % (test code = 09050-4) 18 % 14-54 MONO % (test code = 39716-6) 5 % 0-4 H EOS % (test code = 48950-2) 3 % 0-3 ANC (test code = 753-4) 3.10 10*3/uL 1.88-7.09 PLT ESTIMATE (test code = 9317-9) Decreased Normal A GIANT PLATELETS (test code = 5908-9) Present See_Comment A [Automated Xceediuma ge] The system which generated this result transmitted reference range: (none). The reference range was not used to interpret this result as normal/abnormal. Lab Interpretation (test code = 26253-8) [id number] 02:19:00* Test Item Value Reference Range Interpretation Comme nts POCT PREG (test code = 1605) Negative On board controls acceptable with C Line (test code = 3574) Yes POCT PREG LOT # (test code = 3575) [id number] POCT PREG TEST DATE ( test code = 3576) 12/15/2024 Lab Interpretation (test cod e = 59853-5) Normal [facility] [id number] 02:17:44* Test Item Value Reference Range Interpretation Comme nts NT-proBNP (test code = 20633-5) <=125 Lab Interpretation (test cod e = 96429-3) Normal [facility] [id number] 02:00:40* Test Item Value Reference Range Interpretation Comme nts TROPONIN I (test code = 7268365465) 0.004 ng/mL <=0.034 VIN (test code = VIN) Reference (Normal) Range (defined by the 99th percentile reference limit): <= 0.034 ng/mL Note: Cardiac troponin begins to rise 3-4 hours after the onset of ischemia. Repeat in 4-6 hours if the sample was drawn within 3-4 hours of the onset of the symptom and found normal. Diagnosis of myocardial injury is made with acute changes in cTn concentrations with at least one serial sample above the 99th percentile upper reference limit (URL), taken together with the patient's clinical presentation. Biotin has been reported to cause a negative bias, interpret results relative to patient's use of biotin. Lab Interpretation (test code = 84907-5) Normal [facility]. METABOLIC PANEL (15583)2023-09-24 01:50:03* Test Item Value Reference Range Interpretation Comme nts NA (test code = 4354215842) 137 mmol/L 135-145 K (test code = 6557096999) 3.9 mmol/L 3.5-5.0 CL (test code = 1382910966) 101 mmol/L 98-108 CO2 TOTAL (test code = 4657444996) 26 mmol/L 23-31 AGAP (test code = 3681233164) 10 2-16 BUN (test code = 4200079079) 15 mg/dL 7-23 GLUCOSE (test code = 2990605990) 94 mg/dL 70-110 CREATININE (test code = 6228518859) 0.87 mg/dL 0.50-1.04 TOTAL BILI (test code = 0537277120) 0.6 mg/dL 0.1-1.1 CALCIUM (test code = 3920807444) 9.0 mg/dL 8.6-10.6 T PROTEIN (test code = 4159124921) 7.1 g/dL 6.3-8.2 ALBUMIN (test code = 7558028368) 3.8 g/dL 3.5-5.0 ALK PHOS (test code = 6367087708) 84 U/L 34-122 ALTv (test code = 1742-6) 53 U/L 5-35 H AST(SGOT) (test code = 9295290701) 58 U/L 13-40 H eGFR (test code = 14964-0) 96.7 mL/min/1.73m2 CKD-EPI eGFR (2020). Assuming creatinine has been stable day-to-day for at least three months, the eGFR indicates Category G1 (>= 90 mL/min/1.73 m2) Lab Interpretation (test code = 41865-2) [id number]:18* Test Item Value Reference Range Interpretation Comments D-DIMER (test code = 4754973792) 1.78 See_Comment H [Automated message] The system which generated this result transmitted reference range: <0.41 ?g/mL (FEU). The reference range was not used to interpret this result as normal/abnormal. VIN (test code = VIN) This test may be used in conjunction with a clinical pretest probability (PTP) assessment model to exclude venous thromboembolism (VTE) in patients suspected of deep venous thrombosis (DVT) and pulmonary embolism (PE) A D-Dimer value less than 0.50 ?g/ml (FEU) has a negative predicative value of 96 to 100% (95% CI)and 97 to 100% (95% CI) as an aid in the diagnosis of deep vein thrombosis (DVT) and pulmonary embolism when there is low or moderate pretest probability of PE or DVT. D-Dimer values are expressed in initial fibrinogen equivalent units (FEU)" The assay results should be used with other information, including the clinical context, in forming a diagnosis. Lab Interpretation (test code = 16108-4) Abnormal [facility] WITH [id number] 01:27:38* Test Item Value Reference Range Interpretation Comme nts WBC (test code = 6690-2) See_Comment [Automated [employer] Osito] The system which generated this result transmitted reference range: 4.30 - 11.10 10*3/?L. The reference range was not used to interpret this result as normal/abnormal. RBC (test code = 789-8) See_Comment [Automated [employer] Osito] The system which generated this result transmitted reference range: 3.93 - 5.25 10*6/?L. The reference range was not used to interpret this result as normal/abnormal. HGB (test code = 718-7) 13.4 g/dL 11.6-15 HCT (test code = 4544-3) 41.8 % 35.7-45.2 MCV (test code = 787-2) 80.7 fL 80.6-95.5 MCH (test code = 785-6) 25.9 pg 25.9-32.8 MCHC (test code = 786-4) 32.1 g/dL 31.6-35.1 RDW-SD (test code = 93904-1) 42.4 fL 39-49.9 RDW-CV (test code = 788-0) 14.5 % 12-15.5 PLT (test code = 777-3) See_Comment L [Automated [employer] Osito] The system which generated this result transmitted reference range: 166 - 358 10*3/?L. The reference range was not used to interpret this result as normal/abnormal. MPV (test code = 79114-9) 12.6 fL 9.5-12.9 IPF % (test code = 8578950205) 17.2 % 1.3-7.7 H Platelet count measured by fluorescence method. NRBC/100 WBC (test code = 2837623344) See_Comment [Automated me ssage] The system which generated this result transmitted reference range: 0.0 - 10.0 /100 WBCs. The reference range was not used to interpret this result as normal/abnormal. NRBC x10^3 (test code = 2602339402) See_Comment [Automated messa ge] The system which generated this result transmitted reference range: 10*3/?L. The reference range was not used to interpret this result as normal/abnormal. GRAN MAT (NEUT) % (test code = 770-8) 86.2 % IMM GRAN % (test code = 2277081137) 0.40 % LYMPH % (test code = 736-9) 7.0 % MONO % (test code = 5905-5) 5.1 % EOS % (test code = 713-8) 1.1 % BASO % (test code = 706-2) 0.2 % GRAN MAT x10^3(ANC) (test code = 0361938673) 7.11 10*3/uL 1.88-7.09 H IMM GRAN x10^3 (test code = 5639505729) 0.03 10*3/uL 0-0.06 LYMPH x10^3 (test code = 731-0) 0.58 10*3/uL 1.32-3.29 L MONO x10^3 (test code = 742-7) 0.42 10*3/uL 0.33-0.92 EOS x10^3 (test code = 711-2) 0.09 10*3/uL 0.03-0.39 BASO x10^3 (test code = 704-7) 0.01-0.07 Lab Interpretation (test code = 90728-2) [facility] 00:42:29* Test Item Value Reference Range Interpretation Comme nts MAGNESIUM (test code = 9567826982) 1.8 mg/dL 1.7-2.4 Lab Interpretation (test cod e = 73101-9) Normal [facility] METABOLIC PANEL (14698)2022-07-21 00:42:08* Test Item Value Reference Range Interpretation Comme nts NA (test code = 0090055958) 141 mmol/L 135-145 K (test code = 3444902489) 3.9 mmol/L 3.5-5 CL (test code = 6209131861) 103 mmol/L 98-108 CO2 TOTAL (test code = 2036911997) 25 mmol/L 23-31 AGAP (test code = 9301258699) 2-16 BUN (test code = 7914846443) 19 mg/dL 7-23 GLUCOSE (test code = 7782296030) 98 mg/dL 70-110 CREATININE (test code = 0364757604) 0.83 mg/dL 0.5-1.04 TOTAL BILI (test code = 7614621127) 0.9 mg/dL 0.1-1.1 CALCIUM (test code = 4275325375) 9.1 mg/dL 8.6-10.6 T PROTEIN (test code = 7808135886) 7.0 g/dL 6.3-8.2 ALBUMIN (test code = 5505114904) 4.4 g/dL 3.5-5 ALK PHOS (test code = 7614218228) 72 U/L 34-122 ALTv (test code = 1742-6) 20 U/L 5-35 AST(SGOT) (test code = 5368980560) 22 U/L 13-40 eGFR (test code = 8323420043) mL/min/1.73m2 VIN (test code = VIN) Association of [...] or urine or abnormalities in imaging tests). [facility] 00:42:08* Test Item Value Reference Range Interpretation Comme nts LIPASE (test code = 4720964794) 50 U/L 0-220 Lab Interpretation (test cod e = 46620-8) Normal [facility]PO[facility] [id number] 00:14:00* Test Item Value Reference Range Interpretation Comme nts POCT PREG (test code = 1605) negative Lab Interpretation (test cod e = 19766-0) Normal [facility] Tyler[facility]LE[facility]ULAR [id number] 22:52:00* Test Item Value Reference Range Interpretation Comme nts Source APTIMA (test code = Source APTIMA) Urine *NA*(10/21/19 4:52 PM) C trachomatis by Amp Det (APTIMA) (test code = C trachomatis by Amp Det (APTIMA)) Negative *NA*(10/21/19 4:52 PM) N gonorrhea by Amp Det (APTIMA) (test code = N gonorrhea by Amp Det (APTIMA)) Negative *NA*(10/21/19 4:52 PM) [facility] [id number] 22:04:00* Test Item Value Reference Range Interpretation Comme nts U Amph Scr (test code = U Amph Scr) Negative *NA*(10/21/19 4:04 PM) U Cira Scr (test code = U Cira Scr) Negative *NA*(10/21/19 4:04 PM) U Benzodiaz Scr (test code = U Benzodiaz Scr) Positive *ABN*(10/21/19 4:04 PM) U Cocaine Scr (test code = U Cocaine Scr) Negative *NA*(10/21/19 4:04 PM) U Cannab Scr (test code = U Cannab Scr) Negative *NA*(10/21/19 4:04 PM) U Opiate Scr (test code = U Opiate Scr) Negative *NA*(10/21/19 4:04 PM) U Phencyclidine Scr (test code = U Phencyclidine Scr) Negative *NA*(10/21/19 4:04 PM) UDS Note (test code = UDS Note) See Note (10/21/19 4:04 PM) [facility] AND [id number] 22:04:00* Test Item Value Reference Range Interpretation Comme nts UA Color (test code = UA Color) Yellow *NA*(10/21/19 4:04 PM) UA Turbidity (test code = UA Turbidity) Clear (10/21/19 4:04 PM) UA Spec Grav (test code = UA Spec Grav) 1.020 1 UA pH (test code = UA pH) 5.5 1 5.0-8.0 UA Protein (test code = UA Protein) Negative (10/21/19 4:04 PM) UA Glucose (test code = UA Glucose) Negative (10/21/19 4:04 PM) UA Ketones (test code = UA Ketones) Negative *NA*(10/21/19 4:04 PM) UA Bili (test code = UA Bili) Negative *NA*(10/21/19 4:04 PM) UA Blood (test code = UA Blood) Negative (10/21/19 4:04 PM) UA Urobilinogen (test code = UA Urobilinogen) 0.2 0.1-1.0 UA Nitrite (test code = UA Nitrite) Negative (10/21/19 4:04 PM) UA Leuk Est (test code = UA Leuk Est) Negative (10/21/19 4:04 PM) UA Sq Epi (test code = UA Sq Epi) Few /LPF UA WBC (test code = UA WBC) 3-5 /HPF UA RBC (test code = UA RBC) 0-2 /HPF <=2 UA Bacteria (test code = UA Bacteria) Occasional /HPF UA Mucus (test code = UA Mucus) Few /LPF [facility] [id number] 21:29:00* Test Item Value Reference Range Interpretation Comme nts Total CK (test code = Total CK) 72 12-191 Troponin-I (test code = Troponin-I) no gt <=0.40 [facility] [id number] 21:29:00* Test Item Value Reference Range Interpretation Comme nts Glucose Lvl (test code = Glucose Lvl) 85 70-99 BUN (test code = BUN) 13 7-22 Creatinine Lvl (test code = Creatinine Lvl) 0.80 0.50-1.40 Sodium Lvl (test code = Sodium Lvl) 137 135-145 Potassium Lvl (test code = P otassium Lvl) 3.8 3.5-5.1 Chloride Lvl (test code = Chloride Lvl) 109 95-109 CO2 (test code = CO2) 27 24-32 Calcium Lvl (test code = Calcium Lvl) 8.5 8.5-10.5 Total Protein (test code = T otal Protein) 6.6 6.4-8.4 Albumin Lvl (test code = Albumin Lvl) 3.5 3.5-5.0 ALANINE AMINOTRANSFERASE (te st code = ALANINE AMINOTRANSFERASE) 20 <=65 ASPARTATE TRANSAMINASE (test code = ASPARTATE TRANSAMINASE) 17 <=37 Alk Phos (test code = Alk Phos) 73 43-86 Bili Total (test code = Bili Total) 0.3 0.2-1.3 AGAP (test code = AGAP) 4.8 10.0-20.0 B/C Ratio (test code = B/C Ratio) 16 1 6-25 Globulin (test code = Globulin) 3.1 2.7-4.2 A/G Ratio (test code = A/G Ratio) 1.1 1 0.7-1.6 eGFR (test code = eGFR) 108 [facility] CampusN[id number] 21:29:00* Test Item Value Reference Range Interpretation Comme nts S Preg (test code = S Preg) Negative *NA*(10/21/19 3:29 PM) [facility] CampusTyizckaLBUSYTPFUD3986-82-98 21:29:00* Test Item Value Reference Range Interpretation Comme nts WBC X 10x3 (test code = WBC X 10x3) 6.8 3.7-10.4 RBC X 10x6 (test code = RBC X 10x6) 4.73 4.20-5.40 Hgb (test code = Hgb) 12.2 12.0-16.0 Hct (test code = Hct) 36.8 36.0-48.0 MCV (test code = MCV) 77.7 80.0-98.0 MCH (test code = MCH) 25.8 pg 27.0-31.0 MCHC (test code = MCHC) 33.1 32.0-36.0 RDW (test code = RDW) 16.6 11.5-14.5 Platelet (test code = Platelet) 101 133-450 MPV (test code = MPV) 10.8 7.4-10.4 Segs (test code = Segs) 63.9 45.0-75.0 Lymphocytes (test code = Lymphocytes) 23.2 20.0-40.0 Monocytes (test code = Monocytes) 8.0 2.0-12.0 Eosinophils (test code = Eosinophils) 4.5 <=4.0 Basophils (test code = Basophils) 0.4 <=1.0 Neutrophils # (test code = Neutrophils #) 4.3 1.5-8.1 Lymphocytes # (test code = Lymphocytes #) 1.6 1.0-5.5 Monocytes # (test code = Monocytes #) 0.5 <=0.8 Eosinophils # (test code = Eosinophils #) 0.3 <=0.5 Microcyte (test code = Microcyte) 1+ *ABN*(10/21/19 3:29 PM) [facility] CampusVvsniodQQDZTFHAZC5724-31-69 21:29:00* Test Item Value Reference Range Interpretation Comme nts Ethanol Lvl (test code = Ethanol Lvl) no gt Etoh (%) (test code = Etoh (%)) [facility]t [facility] [id number] 00:00:00* Test Item Value Reference Range Interpretation Comme nts GLUCOSE (test code = 2217) 85 MG/DL BUN (test code = 2208) 16 MG/DL CREATININE (test code = 2214) 0.81 MG/DL eGFR AMER. (test code = 99835) (NOTE) ML/MIN/1.73 eGFR NON- AMER. (test code = 06789) NO CALC ML/MIN/1.73 CALC BUN/CREAT (test code = 2235) 20 RATIO SODIUM (test code = 2231) 142 MEQ/L POTASSIUM (test code = 2228) 4.4 MEQ/L CHLORIDE (test code = 2215) 102 MEQ/L CARBON DIOXIDE (test code = 2206) 24 MEQ/L CALCIUM (test code = 2209) 9.6 MG/DL PROTEIN, TOTAL (test code = 2229) 7.6 G/DL ALBUMIN (test code = 2201) 4.5 G/DL CALC GLOBULIN (test code = 2240) 3.1 G/DL CALC A/G RATIO (test code = 2234) 1.5 RATIO BILIRUBIN, TOTAL (test code = 2207) 0.3 MG/DL ALKALINE PHOSPHATASE (test code = 2204) 82 U/L AST (test code = 2218) 23 U/L ALT (test code = 2219) 21 U/L Ryan ForemanLIPID [id number] 00:00:00* Test Item Value Reference Range Interpretation Comme nts CHOLESTEROL (test code = 2210) 114 MG/DL TRIGLYCERIDES (test code = 2232) 46 MG/DL HDL CHOLESTEROL (test code = 2220) 39 MG/DL CALC LDL CHOL (test code = 2237) 66 MG/DL RISK RATIO LDL/HDL (test cod e = 2238) 1.69 RATIO Ryan ForemanCwnmvoVAI6096-97-71 00:00:00* Test Item Value Reference Range Interpretation Comme nts TSH (test code = 2821) 2.610 UIU/ML Ryan ForemanCBC W/AUTO [id number] 00:00:00* Test Item Value Reference Range Interpretation Comme nts WBC (test code = 1001) 7.6 K/UL RBC (test code = 1002) 5.02 M/UL HEMOGLOBIN (test code = 1003) 13.1 G/DL HEMATOCRIT (test code = 1004) 40.2 % MCV (test code = 1005) 80.1 fL MCH (test code = 1006) 26.1 PG MCHC (test code = 1007) 32.6 G/DL RDW (test code = 1038) 13.6 % NEUTROPHILS (test code = 1008) 64.0 % LYMPHOCYTES (test code = 1010) 27.9 % MONOCYTES (test code = 1011) 6.3 % EOSINOPHILS (test code = 1012) 1.3 % BASOPHILS (test code = 1013) 0.5 % PLATELET COUNT (test code = 1015) 111 K/UL Ryan ForemanHEMOGLOBIN [id number] 00:00:00* Test Item Value Reference Range Interpretation Comme nts HEMOGLOBIN A1c (test code = 82912) 5.1 % Ryan Foreman Notes Date/Time Note Provider Source Ryan Foreman [facility]2025-03-24 00:27:12 Patient given discharge instructions, and verbalized no further concerns or questions. Skin p/w/d, rr equal and non labored. A&Ox4. Cms intact, pulse present. [facility] Allison Stoll [facility] CenterAtchku2676-18-22 00:23:10 Patient fitted for crutches, ambulated without difficulties. [facility]2025-03-23 23:45:00 Patient comes in with left lower leg numbness. Was hit in the leg by a forklift. Seen yesterday for this. Skin p/w/d, rr equal and non labored. A&Ox4. Cms intact, pulse present. [place]00525-03-23 23:00:01 CC: "got hit yesterday with a fork lift, got an x-ray, said no fracture. Today its gone numb up to my knee and I can't move my toes." [facility] Renan Gutierrez [facility] CenterDyycbc8142-23-72 17:59:08 Pt given printed and verbal discharge instructions regarding insect sting, encouraged hydration 0 Prescriptions provided; 1 sent to pharmacy Discussed ibuprofen and to take with food to avoid GI distress. Pt verbalized understanding of instructions, pt awake alert oriented, resp reg unlabored, skin w/d, color appropriate for race, moves all ext well,pt encouraged to follow up with pcp. Advised to seek medical attention for new/prolonged/worsening of symptoms, Symptoms improved No adverse reaction to meds given in ER noted upon discharge Awake, alert oriented, resp reg unlabored, skin w/d, pt leaving amb with steady gait, in no apparent distress. Umm Mcgregor [facility] CenterLlgfeg9939-76-58 16:54:14 Patient reports getting stung on right hand 3rd finger tip by two yellow jackets yesterday and today she reports swelling and her hand locking up and being painful. 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 She took benadryl around 0930 today but not much help. No sob. No throat swelling or tightness. No change in her voice. Here for eval. Past Medical History/Immunizations: History reviewed. No pertinent past medical history. Tetanus received in last 5 years: Unknown Childhood immunizations: Up-to-date Allergies: Allergies Allergen Reactions Iodine Itching and Other - See comments sneezing Past Social History: Substance & Sexual Activity No substance use or sexual activity history on file. Past Surgical History: Past Surgical History: Procedure Laterality Date CYSTOSCOPY N/A 08/27/2021 Surgeon: Kevin Myles MD; Location: [facility] OR LOCATION DIAGNOSTIC LAPAROSCOPY N/A 08/27/2021 Surgeon: Kevin Myles MD; Location: [facility] OR [facility] EXAMINATION UNDER ANESTHESIA N/A 08/27/2021 Surgeon: Kevin Myles MD; Location: [facility] Review of Systems: Review of Systems Constitutional: Negative for chills and fever. Respiratory: Negative for shortness of breath. Cardiovascular: Negative for chest pain. Gastrointestinal: Negative for abdominal pain. Genitourinary: Negative for dysuria. Musculoskeletal: Negative for arthralgias, neck pain and neck stiffness. Skin: Positive for wound. Neurological: Negative for dizziness. Psychiatric/Behavioral: Negative for agitation. Endocrine: Negative for goiter. Physical Exam: ED Triage Vitals [04/16/24 1655] Weight 117.9 kg (260 lb) Actual or estimated Height 1.651 m (5' 5") BP (!) 139/91 Pulse 95 Resp 20 Temp 37.1 ?C (98.8 ?F) Temp source Oral SpO2 99 % Measured on Room air Physical Exam Vitals and nursing note reviewed. Constitutional: Appearance: Normal appearance. She is obese. HENT: Head: Normocephalic and atraumatic. Cardiovascular: Rate and Rhythm: Normal rate. Pulses: Normal pulses. Pulmonary: Effort: Pulmonary effort is normal. No respiratory distress. Abdominal: General: There is no distension. Palpations: There is no mass. Musculoskeletal: General: Normal range of motion. Cervical back: Neck supple. Skin: General: Skin is warm. Comments: +2 radial pulse right side. Mild swelling to distal tip of right third digit Neurological: General: No focal deficit present. Mental Status: She is alert. Radiology: No orders to display Lab Results: Lab Results - No data to display EKG: If EKG completed, see Procedure Note. Orders and Treatments: No orders of the defined types were placed in this encounter. Orders Placed This Encounter Medications cetirizine (ZYRTEC) tablet 10 mg dexamethasone sod phos PF injection 10 mg predniSONE 50 mg tablet First Provider Eval: ED Events Date/Time Event User Comments 04/16/241650 Medical Screening Begins NAHEED COMER DO -- 04/16/241650 First Provider Evaluation NAHEED COMER DO -- ED COURSE Diagnosis/Impression as of 04/16/24 174 Insect stings, undetermined intent, initial encounter Procedures: Procedures MDM: Medical Decision Making The patient presents from home for eval for swelling and redness to her right 3rd digit that started yesterday after getting stung by 2 yellow jackets. She is right handed. Had benadryl around 0930 today and not much help. No sob. No throat swelling or change in voice. VSS here in the EC. +2 radial pulse right side. Mild swelling to distal tip of right 3rd digit. Will give decadron and zyrtec. Anticipate dc home later. 1743 -the patient is doing well here in the ER. Her swelling significantly improved after the medications given here in the ER. She remained stable here in the ER and is okay for discharge home with PCP follow-up. Problems Addressed: Insect stings, undetermined intent, initial encounter: acute illness or injury Risk OTC drugs. Prescription drug management. Flowsheet Documentation: Scoring Tools: No data recorded Disposition/Condition: ED Disposition ED Disposition Disch - Home Condition Stable Comment -- Discharge Medications: Patient's Medications START taking these medications PREDNISONE 50 MG TABLET Take 1 tablet by mouth in the morning for 4 days. CONTINUE taking these medications which have NOT CHANGED ALBUTEROL 90 MCG/ACTUATION INHALER Inhale 2 Puffs every 4 (four) hours as needed for Wheezing or Shortness of Breath. IBUPROFEN 600 MG TABLET Take 1 tablet by mouth every 6 (six) hours. METHYLPREDNISOLONE (MEDROL, ROBIN,) 4 MG TABLETS Take by mouth SEE-INSTRUCTIONS. follow package directions OFLOXACIN 0.3 % OTIC DROPS Place 5 Drops in left ear 2 (two) times daily. ONDANSETRON 4 MG DISINTEGRATING TABLET Take 1 tablet by mouth every 8 (eight) hours as needed for Nausea and Vomiting (N/V). START taking Modified Medications as Prescribed No medications on file STOP taking these medications No medications on file Follow-up: Electronically signed by: Naheed Comer DO 04/16/24 174 [facility]68[facility] 15:36:49Radiation Dose CTDIVOL = 0 (mGy): DLP = 1097 (mGy-cm) PROCEDURE INFORMATION: Exam: CT Head Without Contrast Exam date and time: 10/21/2019 3:37 PM Age: 19 years old Clinical indication: /new onset seizure TECHNIQUE: Imaging protocol: Computed tomography of the head without contrast. Total DLP: 1097 mGy-cm Radiation optimization: All CT scans at this facility use at least one of these dose optimization techniques: automated exposure control; mA and/or kV adjustment per patient size (includes targeted exams where dose is matched to clinical indication); or iterative reconstruction. COMPARISON: No relevant prior studies available. FINDINGS: Brain: There is no evidence of acute infarct, hemorrhage, mass effect or midline shift. No extra-axial fluid collection. Please note that acute infarcts can be occult on CT scan. The omer white interaces are maintained. The ventricles and basilar cisterns are unermarkable. Ventricles: Unremarkable for age Bones/joints: Unremarkable. No acute fracture. Sinuses: Visualized sinuses are unremarkable. No fluid levels. Mastoid air cells: Visualized mastoid air cells are well aerated. Soft tissues: Unremarkable. IMPRESSION: No evidence of acute intracranial findings. COMMENT: If there is a persistent concern for acute intracranial process, further assessment with MRI or CTA is recommended. Maryuri Lei MD On 10/21/2019 16:01:42; [id number] [facility] CampusDyjajue7396-95-95 15:36:49* Radiation Dose CTDIVOL = 0 (mGy): DLP = 1097 (mGy-cm) PROCEDURE INFORMATION: Exam: CT Head Without Contrast Exam date and time: 10/21/2019 3:37 PM Age: 19 years old Clinical indication: /new onset seizure TECHNIQUE: Imaging protocol: Computed tomography of the head without contrast. Total DLP: 1097 mGy-cm Radiation optimization: All CT scans at this facility use at least one of these dose optimization techniques: automated exposure control; mA and/or kV adjustment per patient size (includes targeted exams where dose is matched to clinical indication); or iterative reconstruction. COMPARISON: No relevant prior studies available. FINDINGS: Brain: There is no evidence of acute infarct, hemorrhage, mass effect or midline shift. No extra-axial fluid collection. Please note that acute infarcts can be occult on CT scan. The omer white interaces are maintained. The ventricles and basilar cisterns are unermarkable. Ventricles: Unremarkable for age Bones/joints: Unremarkable. No acute fracture. Sinuses: Visualized sinuses are unremarkable. No fluid levels. Mastoid air cells: Visualized mastoid air cells are well aerated. Soft tissues: Unremarkable. IMPRESSION: No evidence of acute intracranial findings. COMMENT: If there is a persistent concern for acute intracranial process, further assessment with MRI or CTA is recommended. Maryuri Lei MD On 10/21/2019 16:01:42; [id number] [facility] CampusKtwgiko9751-85-52 15:15:00PROCEDURE INFORMATION: Exam: XR Chest, 1 View Exam date and time: 10/21/2019 3:50 PM Age: 19 years old Clinical indication: Other: Seizure; Additional info: /acute seizure TECHNIQUE: Imaging protocol: XR of the chest Views: 1 view. COMPARISON: No relevant prior studies available. FINDINGS: Lungs: No focal consolidation. Pleural space: No pleural effusion or pneumothorax. Heart/Mediastinum: No cardiomegaly. Midline trachea. Bones/joints: No acute abnormalities. IMPRESSION: No acute cardiopulmonary findings. Jaime Hawley MD On 10/21/2019 15:57:01; [id number] [facility] CampusTvdaloo0739-07-67 15:15:00* PROCEDURE INFORMATION: Exam: XR Chest, 1 View Exam date and time: 10/21/2019 3:50 PM Age: 19 years old Clinical indication: Other: Seizure; Additional info: /acute seizure TECHNIQUE: Imaging protocol: XR of the chest Views: 1 view. COMPARISON: No relevant prior studies available. FINDINGS: Lungs: No focal consolidation. Pleural space: No pleural effusion or pneumothorax. Heart/Mediastinum: No cardiomegaly. Midline trachea. Bones/joints: No acute abnormalities. IMPRESSION: No acute cardiopulmonary findings. Jaime Hawley MD On 10/21/2019 15:57:01; [id number] [facility]
[2025-07-22] MEDS ORDERED: ONDANSETRON 4 MG/2 ML VIAL ONE (11:39)
[2025-07-22] MEDS ORDERED: KETOROLAC 30 MG/ML INJ ONE (11:39)
[2025-07-22] MEDS ORDERED: CEFTRIAXONE 2000 MG/VIAL ONE (11:40)
[2025-07-22] MEDS ORDERED: NA CHLORIDE 0.9% 50 ML ONE (11:40)
[2025-07-22] MEDS ORDERED: AZITHROMYCIN 500 MG INJ IVPB ONE (11:40)
[2025-07-22] MEDS ORDERED: NA CHLORIDE 0.9% 1,000 ML ONE (11:40)
[2025-07-22] MEDS ORDERED: NA CHLORIDE 0.9% 250 ML ONE (11:40)
[2025-07-22 12:07] LABS: Absolute Lymphocytes (CBC) 2.2 K/uL (0.7-4.9); Hematocrit 38.6 % (36.0-45.0); Hemoglobin 12.8 g/dL (12.0-15.0); MCH 27.6 pg (27.0-35.0); MCHC 33.1 g/dL (32.0-36.0); MCV 83.2 fL (80-100); MPV 11.2 fL (7.6-11.3); Nucleated RBC Absolute Count 0.0 (0-0); Nucleated Red Blood Cells % 0.0 % (0-0); RBC Red Blood Cell Count 4.64 M/uL (3.86-4.86); White Blood Count 7.00 thou/uL (4.3-10.9)
[2025-07-22 12:23] LABS: ALT/SGPT 19.0 U/L (13-56); AST/SGOT 13.0 U/L (15-37); Albumin 3.3 g/dL (3.4-5.0); Albumin/Globulin Ratio 1.1 (1.1-1.8); Alkaline Phosphatase 70.0 U/L (45-117); Anion Gap 6.8 mEq/L (5.0-15.0); BUN Blood Urea Nitrogen 15.0 mg/dL (7-18); Globulin 3.0 g/dL (2.3-3.5); Glucose Level 92.0 mg/dL (74-106); Lipase 20.0 U/L (13-75); Potassium 3.8 mEq/L (3.5-5.1)
[2025-07-22 13:22] LABS: Sqamous Epithelial <5 /HPF (None Seen); Urine Culture Reflex Order NOT NEEDED; Urine Microscopic Reflex YN ORDER UMIC
--- NOTE | 2025-07-22 13:22 | RAD REPORT ---
EXAMINATION: TWO VIEW CHEST XR CLINICAL INDICATION: Chest pain;Cough;Fever TECHNIQUE: 2 views of the chest was performed. COMPARISON: No prior exam. FINDINGS: Nonspecific peribronchial thickening without focal consolidation could represent a viral infection or reactive airway disease. The heart is normal in size. No displaced fractures evident. Small hiatal hernia.
--- NOTE | 2025-07-22 13:38 | EDPHYS ---
Physician Documentation [facility] Name: Momo Parnell Age: 25 yrs Sex: Female : 2000 Arrival Date: 07/22/2025 Time: 11:18 Bed 4 Private MD: ED Physician Andriy Tavera HPI: 07/22 11:33 This 25 yrs old Female presents to ER via Ambulatory with complaints of Flank lora Pain, Shortness Of Breath. 11:33 The patient complains of pain in the left subscapular area, left low back and left mid lora back. The pain does not radiate. 11:34 The patient has shortness of breath with light activity. Onset: The symptoms/episode lora began/occurred 2 week(s) ago. The patient's shortness of breath is aggravated by coughing, exertion, light activity, is alleviated by rest, sitting up. Modifying factors: The symptoms are alleviated by remaining still, the symptoms are aggravated by movement, palpation/percussion. Associated signs and symptoms: Pertinent positives: non-productive cough, fever. Severity of symptoms: At their worst the symptoms were moderate in the emergency department the symptoms are unchanged. Historical: - Allergies: 11:21 Iodinated Contrast Media - IV Dye; ll1 - PMHx: 11:21 Seizures; ll1 - PSHx: 11:21 salphingectomy (es); ll1 - Immunization history:: Adult Immunizations up to date. - Family history:: not pertinent. ROS: 11:34 Constitutional: Negative for fever, chills, and weight loss, Eyes: Negative for injury, lora pain, redness, and discharge, ENT: Negative for injury, pain, and discharge, Neck: Negative for injury, pain, and swelling, Cardiovascular: Negative for chest pain, palpitations, and edema, Abdomen/GI: Negative for abdominal pain, nausea, vomiting, diarrhea, and constipation, Back: Negative for injury and pain, : Negative for injury, bleeding, discharge, and swelling, MS/Extremity: Negative for injury and deformity, Skin: Negative for injury, rash, and discoloration, Neuro: Negative for headache, weakness, numbness, tingling, and seizure, Psych: Negative for depression, anxiety, suicide ideation, homicidal ideation, and hallucinations, Allergy/Immunology: Negative for hives, rash, and allergies, Endocrine: Negative for neck swelling, polydipsia, polyuria, polyphagia, and marked weight changes, Hematologic/Lymphatic: Negative for swollen nodes, abnormal bleeding, and unusual bruising, 11:34 Respiratory: Positive for cough, shortness of breath, at rest. 13:16 MS/extremity: Negative for acute changes, decreased range of motion, no trauma , no lora stasis , no hcs, , Exam: 11:34 Constitutional: This is a well developed, well nourished patient who is awake, alert, lora and in no acute distress. Head/Face: Normocephalic, atraumatic. Eyes: Pupils equal round and reactive to light, extra-ocular motions intact. Lids and lashes normal. Conjunctiva and sclera are non-icteric and not injected. Cornea within normal limits. Periorbital areas with no swelling, redness, or edema. ENT: Nares patent. No nasal discharge, no septal abnormalities noted. Tympanic membranes are normal and external auditory canals are clear. Oropharynx with no redness, swelling, or masses, exudates, or evidence of obstruction, uvula midline. Mucous membranes moist. Neck: Trachea midline, no thyromegaly or masses palpated, and no cervical lymphadenopathy. Supple, full range of motion without nuchal rigidity, or vertebral point tenderness. No Meningismus. Chest/axilla: Normal chest wall appearance and motion. Nontender with no deformity. No lesions are appreciated. Cardiovascular: Regular rate and rhythm with a normal S1 and S2. No gallops, murmurs, or rubs. Normal PMI, no JVD. No pulse deficits. Abdomen/GI: Soft, non-tender, with normal bowel sounds. No distension or tympany. No guarding or rebound. No evidence of tenderness throughout. Back: No spinal tenderness. No costovertebral tenderness. Full range of motion. Skin: Warm, dry with normal turgor. Normal color with no rashes, no lesions, and no evidence of cellulitis. MS/ Extremity: Pulses equal, no cyanosis. Neurovascular intact. Full, normal range of motion., bilateral aka Neuro: Awake and alert, GCS 15, oriented to person, place, time, and situation. Cranial nerves II-XII grossly intact. Motor strength 5/5 in all extremities. Sensory grossly intact. Cerebellar exam normal. Normal gait. 11:34 Respiratory: the patient does not display signs of respiratory distress, Respirations: normal, Breath sounds: bronchial sounds, that are mild, that are moderate, are heard in the left lower lobe and left posterior lower lobe, rhonchi, that are mild, are heard in the left lower lobe and left posterior lower lobe, stridor, is not appreciated, 11:34 Musculoskeletal/extremity: DVT Exam: No signs of deep vein thrombosis. no pain, no swelling, no tenderness, negative Homans' sign noted on exam, no appreciated bluish discoloration, no erythema, no increased warmth, Vital Signs: 11:28 BP 110 / 77; Pulse 78; Resp 17; Temp 98.3; Pulse Ox 97% on R/A; Weight 106.14 kg; ll1 Height 5 ft. 5 in. ; Pain 7/10; 12:30 BP 120 / 80; Pulse 52; Resp 18; Pulse Ox 100% on R/A; jp5 13:30 BP 127 / 77; Pulse 62; Resp 18; Pulse Ox 99% on R/A; jp5 14:30 BP 120 / 87; Pulse 60; Resp 18; Pulse Ox 99% on R/A; jp5 11:28 Body Mass Index 38.94 (106.14 kg, 165.1 cm) ll1 11:28 Pain Scale: Adult ll1 MDM: 11:21 Medical Screening Exam initiated [facility] 11:36 Antibiotic administration: The patient is discharged and will get outpatient [facility] antibiotics, Amoxicillin, Zithromax. Differential diagnosis: Bronchitis nephrolithiasis, UTI, diverticulitis, pneumonia, pulmonary edema, Pulmonary Embolism Sepsis. Differential Diagnosis: Obstructed Airway Bronchitis Influenza Upper Respiratory Infection Sinusitis Pharyngitis Otitis Media Asthma Exacerbation Viral Syndrome Pneumonia. Immunization status:. Data reviewed: vital signs, nurses notes, lab test result(s), radiologic studies, CT scan, plain films. Consideration of Admission/Observation Escalation of care including admission/observation considered. I considered the following discharge prescriptions or medication management in the emergency department Medications were administered in the Emergency Department. See MAR. Independent interpretation of the following test(s) in the Emergency Department X-Ray: My interpretation is cxr / ct c/a/p. Historians other than the Patient: pt well informed. 07/22 11:32 Order name: CBC with Diff; Complete Time: 13:13 [facility] 07/22 11:32 Order name: CMP; Complete Time: 13:13 [facility] 07/22 11:32 Order name: Blood Culture Adult (2) [facility] 07/22 11:32 Order name: Lactate w/ 2H reflex if indic.; Complete Time: 13:13 [facility] 07/22 11:32 Order name: Lipase; Complete Time: 13:13 [facility] 07/22 11:32 Order name: UA Rfx Cordell Cult if indicated; Complete Time: 13:36 [facility] 07/22 11:32 Order name: PREGU; Complete Time: 13:36 [facility] 07/22 11:32 Order name: Chest Pa And Lat (2 Views) XRAY; Complete Time: 13:36 [facility] 07/22 11:32 Order name: CT Chest Abdomen Pelvis W/O Contrast; Complete Time: 15:20 [facility] 07/22 13:14 Order name: US Extremity Venous W Compression Yogi; Complete Time: 15:20 [facility] 07/22 15:21 Order name: Misc. Order: dc home; Complete Time: 15:26 lora Administered Medications: 11:59 Drug: Ketorolac IVP 30 mg IVP once Route: IVP; Site: left antecubital; jp5 11:59 Drug: Ondansetron IVP 4 mg IVP once; over 2 minutes Route: IVP; Site: left antecubital; jp5 12:00 Drug: NS 0.9% IV 1000 ml IV at 1000 ml once; to be given as a bolus over 60 minutes jp5 Route: IV; Rate: 1000 ml; Site: left antecubital; 12:55 Drug: Rocephin IV 2 grams IV at per protocol once; Given slow IV push per pharmarcy jp5 instructions Route: IV; Rate: per protocol; Site: left antecubital; 13:14 Drug: Zithromax IVPB 500 mg IVPB once over 1 hrs; mix in 250 mL NS Route: IVPB; Infused jp5 Over: 1 hrs; Site: left antecubital; Disposition Summary: 07/22/25 13:37 Discharge Ordered Notes: Location: Home lora Problem: new lora Symptoms: have improved lora Condition: Fair lora Diagnosis - Acute upper respiratory infection, unspecified lora - Pneumonia due to other specified bacteria lora - UTI/ Urinary tract infection, site not specified lora - Fever, unspecified lora Followup: lora - With: Private Physician - When: 2 - 3 days - Reason: Recheck today's complaints, Continuance of care, Re-evaluation by your physician Discharge Instructions: - Discharge Summary Sheet [facility] - Fever, Adult [facility] - Community-Acquired Pneumonia, Adult [facility] - Upper Respiratory Infection, Adult [facility] - Cool Mist Vaporizer [facility] - Urinary Tract Infection, Adult, Wmik-ld-Jylm lora - Upper Respiratory Infection, Adult, Zosc-xu-Hihj lora - Community-Acquired Pneumonia, Adult, Mkwz-bs-Nsva lora - Cough, Adult, Gvzv-[id number] [facility] Forms: - Medication Reconciliation Form [facility] - Antibiotic Education [facility] - Prescription Opioid Use [facility] - Patient Portal Instructions [facility] - Leadership Thank You Letter [facility] Prescriptions: - Augmentin 875-125 mg Oral tablet - take 1 tablet ORAL route every 12 hours for 7 days; 14 tablet; Refills: 0, [facility] Product Selection Permitted - Diflucan 150 mg Oral tablet - take 1 tablet ORAL route one time for 1 day as needed; 1 tablet; Refills: 0, [facility] Product Selection Permitted - Ibuprofen 600 mg Oral Tablet - take 1 tablet ORAL route every 6 hours As needed take with food; 30 tablet; [facility] Refills: 0, Product Selection Permitted - benzonatate 200 mg Oral capsule - take 1 capsule ORAL route 3 times per day as needed; 30 capsule; Refills: 0, [facility] Product Selection Permitted - Zithromax 500 mg Oral Tablet - take 1 tablet ORAL route once daily for 5 days; 5 tablet; Refills: 0, Product [facility] Selection Permitted Signatures: Dispatcher [employer] EDMS Andriy Tavera MD MD cha Lewis, Lynsay, RN RN ll1 Sarah Chappell RN RN jp5 Corrections: (The following items were deleted from the chart) 11:33 11:33 Chest Pa And Lat (2 Views)+RAD.RAD.BRZ ordered. EDMS EDMS 11:33 11:33 Chest Abdomen Pelvis Wo Con+CT.RAD.BRZ ordered. EDMS EDMS 13:37 13:37 TEST, SERUM+SC.LAB.BRZ ordered. EDMS EDMS
--- NOTE | 2025-07-22 13:38 | ER ---
Nurse's Notes [facility] Name: Momo Parnell Age: 25 yrs Sex: Female : 2000 Arrival Date: 07/22/2025 Time: 11:18 Bed 4 Private MD: Diagnosis: Acute upper respiratory infection, unspecified;Pneumonia due to other specified bacteria;UTI/ Urinary tract infection, site not specified;Fever, unspecified Presentation: 07/22 11:28 Chief complaint: Patient states: L sided flank pain for 2 weeks. SOB, N/V, fever, ll1 diarrhea for 2-3 days. Coronavirus screen: Client denies travel out of the [place] in the last 14 days. difficulty breathing, fatigue, nausea, shortness of breath, vomiting. Client presents with at least one sign or symptom that may indicate coronavirus-19. Standard/surgical mask placed on the client. Ebola Screen: Patient denies travel to an Ebola-affected area in the 21 days before illness onset. Initial Sepsis Screen: Does the patient meet any 2 criteria? No. Patient's initial sepsis screen is negative. Does the patient have a suspected source of infection? No. Patient's initial sepsis screen is negative. Risk Assessment: Do you want to hurt yourself or someone else? Patient reports no desire to harm self or others. Onset of symptoms was July 08, 2025. 11:28 Method Of Arrival: Ambulatory ll1 11:28 Acuity: JULI 3 ll1 Historical: - Allergies: 11:21 Iodinated Contrast Media - IV Dye; ll1 - PMHx: 11:21 Seizures; ll1 - PSHx: 11:21 salphingectomy (es); ll1 - Immunization history:: Adult Immunizations up to date. - Family history:: not pertinent. Screenin:31 [facility] ED Fall Risk Assessment (Adult) History of falling in the last 3 months, jp5 including since admission No falls in past 3 months (0 pts) Confusion or Disorientation No (0 pts) Intoxicated or Sedated No (0 pts) Impaired Gait No (0 pts) Mobility Assist Device Used No (0 pt) Altered Elimination No (0 pt) Score/Fall Risk Level 0 - 2 = Low Risk Oriented to surroundings, Maintained a safe environment, Educated pt \T\ family on fall prevention, incl call for assistance when getting out of bed, Assessed \T\ reinforced patient's understanding of fall precautions, Provided non-skid footwear, Hourly rounding (assess needs \T\ fall precautionary measures) done, Used ambulatory aids as needed (educated on \T\ assisted with). Abuse screen: Denies threats or abuse. Denies injuries from another. Nutritional screening: No deficits noted. Tuberculosis screening: No symptoms or risk factors identified. Assessment: 11:30 Pain: Complains of pain in LEFT FLANK. Cardiovascular: No deficits noted. Rhythm is jp5 regular. Respiratory: Airway is patent Respiratory effort is even, unlabored, Breath sounds are clear bilaterally. Vital Signs: 11:28 BP 110 / 77; Pulse 78; Resp 17; Temp 98.3; Pulse Ox 97% on R/A; Weight 106.14 kg; ll1 Height 5 ft. 5 in. ; Pain 7/10; 12:30 BP 120 / 80; Pulse 52; Resp 18; Pulse Ox 100% on R/A; jp5 13:30 BP 127 / 77; Pulse 62; Resp 18; Pulse Ox 99% on R/A; jp5 14:30 BP 120 / 87; Pulse 60; Resp 18; Pulse Ox 99% on R/A; jp5 11:28 Body Mass Index 38.94 (106.14 kg, 165.1 cm) ll1 11:28 Pain Scale: Adult ll1 ED Course: 11:20 Patient arrived in ED. im 11:21 Andriy Tavera MD is Attending Physician. [facility] 11:21 Arm band placed on Patient placed in an exam room, on a stretcher. ll1 11:30 Triage completed. ll1 11:30 Patient has correct armband on for positive identification. Bed in low position. Call jp5 light in reach. Side rails up X 1. Provided Education on: call light use. rivet tapping machine operator on. Pulse ox on. NIBP on. 11:30 No provider procedures requiring assistance completed. jp5 11:45 First set of blood cultures drawn by me. jp5 11:55 Second set of blood cultures drawn by me. jp5 11:55 Inserted saline lock: 20 gauge in left antecubital area, using aseptic technique. Blood jp5 collected. Flushed with 10 mL NS. 11:59 CBC with Diff Sent. jp5 11:59 CMP Sent. jp5 11:59 Blood Culture Adult (2) Sent. jp5 11:59 Lactate w/ 2H reflex if indic. Sent. jp5 11:59 Lipase Sent. jp5 12:26 Radiology exam delayed due to test not completed at this time. kyara 13:03 Chest Pa And Lat (2 Views) XRAY In Process Unspecified. EDMS 13:13 UA Rfx Cordell Cult if indicated Sent. jp5 13:14 PREGU Sent. jp5 13:36 Sarah Chappell, RN is Primary Nurse. jp5 13:39 US Extremity Venous W Compression Yogi In Process Unspecified. EDMS 14:31 CT Chest Abdomen Pelvis W/O Contrast In Process Unspecified. EDMS 15:26 IV discontinued, intact, bleeding controlled, No redness/swelling at site. Pressure jp5 dressing applied. Administered Medications: 11:59 Drug: Ketorolac IVP 30 mg IVP once Route: IVP; Site: left antecubital; jp5 11:59 Drug: Ondansetron IVP 4 mg IVP once; over 2 minutes Route: IVP; Site: left antecubital; jp5 12:00 Drug: NS 0.9% IV 1000 ml IV at 1000 ml once; to be given as a bolus over 60 minutes jp5 Route: IV; Rate: 1000 ml; Site: left antecubital; 12:55 Drug: Rocephin IV 2 grams IV at per protocol once; Given slow IV push per pharmarcy jp5 instructions Route: IV; Rate: per protocol; Site: left antecubital; 13:14 Drug: Zithromax IVPB 500 mg IVPB once over 1 hrs; mix in 250 mL NS Route: IVPB; Infused jp5 Over: 1 hrs; Site: left antecubital; Medication: 11:31 VIS not applicable for this client. jp5 Outcome: 13:37 Discharge ordered by . lora 15:27 Discharged to home ambulatory, with family, jp5 15:27 Condition: good 15:27 Discharge instructions given to patient, Instructed on discharge instructions, follow up and referral plans. medication usage, Demonstrated understanding of instructions, follow-up care, medications, Prescriptions given X 4, 15:28 Patient left the ED. jp5 Signatures: Dispatcher [employer] EDMS Andriy Tavera MD MD cha Lewis, Lynsay, RN RN ll1 Julita Montoya md2 Phylicia Flood Jailene, RN RN jp5
--- NOTE | 2025-07-22 14:40 | RAD REPORT ---
EXAMINATION: US BILATERAL LOWER EXTREMITY VENOUS DOPPLER CLINICAL INDICATION: PAIN TECHNIQUE: Complete bilateral duplex sonography of the BILATERAL lower extremity veins was performed. The examination included compression for vein patency, color Doppler imaging and flow augmentation in response to distal compression of the distal external iliac, common femoral, femoral, popliteal, t ibial, and great and small saphenous veins. COMPARISON: No prior exam. FINDINGS: Duplex sonography testing of the veins of the BILATERAL lower extremity was performed. Color flow mirta ging shows all veins to be compressible with [id number] color filling. Pulsatile and phasic flow is present within all lower extremity deep and superficial veins examined. IMPRESSION: There is no deep vein or superficial vein thrombosis.
--- NOTE | 2025-07-22 14:51 | RAD REPORT ---
EXAM: CT CHEST, ABDOMEN AND PELVIS WITHOUT CONTRAST CLINICAL INDICATION: Chest pain;Abdominal distention;Fever TECHNIQUE: CT chest, abdomen and pelvis was performed without contrast, as per department protocol. A xial, sagittal and coronal reconstructions were obtained. One or more of the following dose reduction techniques were used: Automated exposure control, adjustment of the mA and/or kV according to patient size, and/or iterative reconstruction. Unless otherwise specified, incidental findings do not require dedicated imaging follow-up. Examination is limited by the lack of intravenous contrast material. COMPARISON: No prior exam. FINDINGS: LUNGS: No evidence of airspace or interstitial process. No nodules. PLEURA: No pleural effusion. No pneumothorax. MEDIASTINUM AND LYMPH NODES: No mediastinal mass or fluid collection. Normal size mediastinal, hilar, and axillary lymph nodes. OSSEOUS STRUCTURES AND CHEST WALL: Intact. LIVER: Normal in size and contour. No focal lesion or biliary dilatation. Grossly unremarkable gallbl adder. PANCREAS: No mass, ductal dilation, or bipin-pancreatic fluid. SPLEEN: Normal size. No focal lesion. ADRENALS: Normal; no mass. KIDNEYS: Normal size and contour. No hydronephrosis. URINARY BLADDER: Normal contour. GASTROINTESTINAL TRACT: No bowel obstruction, free air, significant free fluid or abscess. Small fa t-containing clinical hernia. APPENDIX: Normal appendix. LYMPH NODES: No lymphadenopathy. MUSCULOSKELETAL: No acute or suspicious osseous abnormality. OTHER: 4.5 cm left adnexal cyst. IMPRESSION: No acute abnormalities seen in the chest, abdomen or pelvis.
[2025-07-22 16:06] VITALS: TEMP 98.3
[2025-07-22 16:07] VITALS: O2SAT 99
[2025-07-22 16:09] VITALS: BP 120/87
== END 2025-07-22 15:28 | disposition home or self-care (01) ==
LOC: ER 11:18
DX: J15.8 Pneumonia due to other specified bacteria (principal); J06.9 Acute upper respiratory infection, unspecified; N39.0 Urinary tract infection, site not specified
CPT/HCPCS: 87040 ×2; 85025; 81001; 36415; 81025; 83605; 83690; 80053; 71250; 74176; 71046; 93970; 96375; 96374; 99285; J1885; J0456; J2405; J0696; J7050; J7030